=== PATIENT | female | born 1940 | race Caucasian/White ===

== ENCOUNTER 2019-06-22 09:12 | Inpatient (IN) | payer MEDICARE ==
[2019-06-22] MEDS ORDERED: SODIUM CHLORIDE 0.9% 1,000 ML IV STA ×2 (09:49→13:58)
[2019-06-22] MEDS ORDERED: PANTOPRAZOLE 40 MG/10 ML VIAL IVP STA (09:49)
--- NOTE | 2019-06-22 09:55 | ED ---
GI Bleed HPI - General Chief complaint: GI Bleed Stated complaint: GI bleed Time Seen by Provider: 06/22/19 09:26 Source: patient, family, RN notes reviewed Mode of arrival: wheelchair Limitations: no limitations - History of Present Illness Initial comments: This is a 78-year-old female with no prior history of GI issues who states she's been having intermittent episodes of black stools for past 2-3 weeks she also had emesis of bright red blood last night x3 also some blood clots per rectum this morning. She has some lightheadedness and dizziness she appears pale per family members. She is scheduled to have upper and lower endoscopy in the near future. Just complains some epigastric discomfort. Mild in severity. Also is had some peripheral edema No other modifying factors at this time MD complaint: gross hematemesis, gross hematochezia - Related Data Home Medications Medication Instructions Recorded Confirmed Aspirin 325 mg PO HS 12/13/15 06/22/19 Cetirizine HCl [Zyrtec] 10 mg PO DAILY 12/13/15 06/22/19 Levothyroxine Sodium [Synthroid] 224 mcg PO QAM 12/13/15 06/22/19 Losartan/Hydrochlorothiazide 1 tab PO DAILY 12/13/15 06/22/19 [Losartan-Hctz 100-25 mg Tab] Multivitamins, Thera [Multivitamin] 1 tab PO QAM 12/13/15 06/22/19 Atorvastatin [Lipitor] 10 mg PO HS 06/22/19 06/22/19 Citalopram Hydrobromide [CeleXA] 20 mg PO HS 06/22/19 06/22/19 Cyanocobalamin (Vitamin B-12) 5,000 mcg PO DAILY 06/22/19 06/22/19 [Vitamin B-12] L.acidoph,Paracasei, B.lactis 1 cap PO DAILY 06/22/19 06/22/19 [Probiotic] Magnesium Oxide 400 mg PO DAILY 06/22/19 06/22/19 Potassium Gluconate 99 mg PO DAILY 06/22/19 06/22/19 Allergies Allergy/AdvReac Type Severity Reaction Status Date / Time pesticide Allergy Dyspnea Verified 06/22/19 11:57 Review of Systems ROS Statement: Those systems with pertinent positive or pertinent negative responses have been documented in the HPI. ROS Other: All systems not noted in ROS Statement are negative. Past Medical History Past Medical History: Cancer, Diabetes Mellitus, Hyperlipidemia, Hypertension, Myocardial Infarction (ID), Thyroid Disorder Additional Past Medical History / Comment(s): ID: [id number]; CA: uterus Last Myocardial Infarction Date:: 1984 History of Any Multi-Drug Resistant Organisms: None Reported Past Surgical History: Cholecystectomy, Hysterectomy, Orthopedic Surgery Additional Past Surgical History / Comment(s): Sx: right knee replaced, complete hysterectomy 2013 "started having periods at 72 & went to the dr & they found a tumor (7cm) & removed that" colonoscopy Past Anesthesia/Blood Transfusion Reactions: No Reported Reaction Past Psychological History: No Psychological Hx Reported Smoking Status: Former smoker Past Alcohol Use History: None Reported Past Drug Use History: None Reported - Past Family History Mother Family Medical History: No Reported History, Dementia Additional Family Medical History / Comment(s): "94 & very healthy" Father Family Medical History: Cancer, Coronary Artery Disease (CAD), CVA/TIA Additional Family Medical History / Comment(s): "passed when 87" "first stoke wwhen 49"; CA: skin; nerve issues due to the war General Exam - General Exam Comments Initial Comments: This is a well-developed well-nourished awake alert oriented 3 female Limitations: no limitations General appearance: alert, in no apparent distress Head exam: Present: atraumatic, normocephalic, normal inspection Eye exam: Present: normal appearance, PERRL, EOMI. Absent: scleral icterus, conjunctival injection, periorbital swelling ENT exam: Present: normal exam, mucous membranes moist Neck exam: Present: normal inspection. Absent: tenderness, meningismus, lymphadenopathy Respiratory exam: Present: normal lung sounds bilaterally. Absent: respiratory distress, wheezes, rales, rhonchi, stridor Cardiovascular Exam: Present: regular rate, normal rhythm, systolic murmur. Absent: diastolic murmur, rubs, gallop, clicks GI/Abdominal exam: Present: soft, normal bowel sounds. Absent: distended, tenderness, guarding, rebound, rigid Extremities exam: Present: full ROM, normal capillary refill, pedal edema, other (Stasis dermatitis bilaterally). Absent: tenderness, joint swelling, calf tenderness Back exam: Present: normal inspection Neurological exam: Present: alert, oriented X3, CN II-XII intact Psychiatric exam: Present: normal affect, normal mood Skin exam: Present: warm, dry, intact, normal color. Absent: rash Course Vital Signs 06/22/19 06/22/19 06/22/19 09:14 11:32 12:00 Temperature 97.6 F Pulse Rate 77 74 66 Respiratory 18 18 18 Rate Blood Pressure 108/57 99/51 99/51 O2 Sat by Pulse 98 96 92 L Oximetry 06/22/19 06/22/19 13:00 14:00 Temperature Pulse Rate 65 71 Respiratory 16 17 Rate Blood Pressure 94/28 86/32 O2 Sat by Pulse 96 93 L Oximetry Medical Decision Making - Medical Decision Making Patient was reevaluated by me I did discuss case with Dr. Noonan patient will be admitted with consultation by Dr. Kaur and Cardiology no further bleeding noted while patient was here. - Lab Data Result diagrams: 06/22/19 10:10 06/22/19 10:10 Lab Results 06/22/19 06/22/19 06/22/19 Range/Units 10:10 10:10 10:10 WBC 11.1 H (3.8-10.6) k/uL RBC 2.50 L (3.80-5.40) m/uL Hgb 8.5 L (11.4-16.0) gm/dL Hct 26.0 L (34.0-46.0) % MCV 103.9 H (80.0-100.0) fL MCH 33.8 (25.0-35.0) pg MCHC 32.5 (31.0-37.0) g/dL RDW 19.2 H (11.5-15.5) % Plt Count 231 (150-450) k/uL Neutrophils % 85 % Lymphocytes % 9 % Monocytes % 3 % Eosinophils % 1 % Basophils % 0 % Neutrophils # 9.5 H (1.3-7.7) k/uL Lymphocytes # 1.0 (1.0-4.8) k/uL Monocytes # 0.3 (0-1.0) k/uL Eosinophils # 0.1 (0-0.7) k/uL Basophils # 0.0 (0-0.2) k/uL Hypochromasia Slight Anisocytosis Slight Macrocytosis Moderate APTT 27.9 (22.0-30.0) sec Sodium 138 (137-145) mmol/L Potassium 3.9 (3.5-5.1) mmol/L Chloride 106 (98-107) mmol/L Carbon Dioxide 23 (22-30) mmol/L Anion Gap 9 mmol/L BUN 57 H (7-17) mg/dL Creatinine 0.78 (0.52-1.04) mg/dL Est GFR (CKD-EPI)AfAm 86 (>60 ml/min/1.73 sqM) Est GFR (CKD-EPI)NonAf 74 (>60 ml/min/1.73 sqM) Glucose 114 H (74-99) mg/dL Calcium 9.4 (8.4-10.2) mg/dL Total Bilirubin 5.2 H (0.2-1.3) mg/dL AST 470 H (14-36) U/L ALT 99 H (9-52) U/L Alkaline Phosphatase 209 H (38-126) U/L Creatine Kinase 63 (30-135) U/L Troponin I (0.000-0.034) ng/mL Total Protein 5.7 L (6.3-8.2) g/dL Albumin 2.9 L (3.5-5.0) g/dL Urine Color Urine Appearance (Clear) Urine pH (5.0-8.0) Ur Specific [place] (1.001-1.035) Urine Protein (Negative) Urine Glucose (UA) (Negative) Urine Ketones (Negative) Urine Blood (Negative) Urine Nitrite (Negative) Urine Bilirubin (Negative) Urine Urobilinogen (<2.0) mg/dL Ur Leukocyte Esterase (Negative) Urine RBC (0-5) /hpf Urine WBC (0-5) /hpf Ur Squamous Epith Cells (0-4) /hpf Amorphous Sediment (None) /hpf Urine Bacteria (None) /hpf Hyaline Casts (0-2) /lpf Urine Mucus (None) /hpf Blood Type Blood Type Confirm Blood Type Recheck Bld Type Recheck Status Antibody Screen Spec Expiration Date 06/22/19 06/22/19 06/22/19 Range/Units 10:10 10:10 12:16 WBC (3.8-10.6) k/uL RBC (3.80-5.40) m/uL Hgb (11.4-16.0) gm/dL Hct (34.0-46.0) % MCV (80.0-100.0) fL MCH (25.0-35.0) pg MCHC (31.0-37.0) g/dL RDW (11.5-15.5) % Plt Count (150-450) k/uL Neutrophils % % Lymphocytes % % Monocytes % % Eosinophils % % Basophils % % Neutrophils # (1.3-7.7) k/uL Lymphocytes # (1.0-4.8) k/uL Monocytes # (0-1.0) k/uL Eosinophils # (0-0.7) k/uL Basophils # (0-0.2) k/uL Hypochromasia Anisocytosis Macrocytosis APTT (22.0-30.0) sec Sodium (137-145) mmol/L Potassium (3.5-5.1) mmol/L Chloride (98-107) mmol/L Carbon Dioxide (22-30) mmol/L Anion Gap mmol/L BUN (7-17) mg/dL Creatinine (0.52-1.04) mg/dL Est GFR (CKD-EPI)AfAm (>60 ml/min/1.73 sqM) Est GFR (CKD-EPI)NonAf (>60 ml/min/1.73 sqM) Glucose (74-99) mg/dL Calcium (8.4-10.2) mg/dL Total Bilirubin (0.2-1.3) mg/dL AST (14-36) U/L ALT (9-52) U/L Alkaline Phosphatase (38-126) U/L Creatine Kinase (30-135) U/L Troponin I 0.064 H* (0.000-0.034) ng/mL Total Protein (6.3-8.2) g/dL Albumin (3.5-5.0) g/dL Urine Color Urine Appearance (Clear) Urine pH (5.0-8.0) Ur Specific [place] (1.001-1.035) Urine Protein (Negative) Urine Glucose (UA) (Negative) Urine Ketones (Negative) Urine Blood (Negative) Urine Nitrite (Negative) Urine Bilirubin (Negative) Urine Urobilinogen (<2.0) mg/dL Ur Leukocyte Esterase (Negative) Urine RBC (0-5) /hpf Urine WBC (0-5) /hpf Ur Squamous Epith Cells (0-4) /hpf Amorphous Sediment (None) /hpf Urine Bacteria (None) /hpf Hyaline Casts (0-2) /lpf Urine Mucus (None) /hpf Blood Type AB Positive Blood Type Confirm AB Positive Blood Type Recheck No Previous Record Bld Type Recheck Status CABO Indicated Antibody Screen NEGATIVE Spec Expiration Date 06/25/2019 - 230906/22/19 Range/Units 12:49 WBC (3.8-10.6) k/uL RBC (3.80-5.40) m/uL Hgb (11.4-16.0) gm/dL Hct (34.0-46.0) % MCV (80.0-100.0) fL MCH (25.0-35.0) pg MCHC (31.0-37.0) g/dL RDW (11.5-15.5) % Plt Count (150-450) k/uL Neutrophils % % Lymphocytes % % Monocytes % % Eosinophils % % Basophils % % Neutrophils # (1.3-7.7) k/uL Lymphocytes # (1.0-4.8) k/uL Monocytes # (0-1.0) k/uL Eosinophils # (0-0.7) k/uL Basophils # (0-0.2) k/uL Hypochromasia Anisocytosis Macrocytosis APTT (22.0-30.0) sec Sodium (137-145) mmol/L Potassium (3.5-5.1) mmol/L Chloride (98-107) mmol/L Carbon Dioxide (22-30) mmol/L Anion Gap mmol/L BUN (7-17) mg/dL Creatinine (0.52-1.04) mg/dL Est GFR (CKD-EPI)AfAm (>60 ml/min/1.73 sqM) Est GFR (CKD-EPI)NonAf (>60 ml/min/1.73 sqM) Glucose (74-99) mg/dL Calcium (8.4-10.2) mg/dL Total Bilirubin (0.2-1.3) mg/dL AST (14-36) U/L ALT (9-52) U/L Alkaline Phosphatase (38-126) U/L Creatine Kinase (30-135) U/L Troponin I (0.000-0.034) ng/mL Total Protein (6.3-8.2) g/dL Albumin (3.5-5.0) g/dL Urine Color [place] Urine Appearance Turbid H (Clear) Urine pH 6.0 (5.0-8.0) Ur Specific [place] 1.019 (1.001-1.035) Urine Protein Trace H (Negative) Urine Glucose (UA) Negative (Negative) Urine Ketones Negative (Negative) Urine Blood Negative (Negative) Urine Nitrite Negative (Negative) Urine Bilirubin 1+ H (Negative) Urine Urobilinogen 4.0 (<2.0) mg/dL Ur Leukocyte Esterase Negative (Negative) Urine RBC 1 (0-5) /hpf Urine WBC 4 (0-5) /hpf Ur Squamous Epith Cells 11 H (0-4) /hpf Amorphous Sediment Rare H (None) /hpf Urine Bacteria Rare H (None) /hpf Hyaline Casts 1 (0-2) /lpf Urine Mucus Rare H (None) /hpf Blood Type Blood Type Confirm Blood Type Recheck Bld Type Recheck Status Antibody Screen Spec Expiration Date - EKG Data -: EKG Interpreted by Me EKG shows normal: sinus rhythm (Sinus rhythm first-degree AV block rate was 72 MN interval 250 QRS 150 QT since QTC 486/532 left exodeviation right bundle- branch block pattern) - Radiology Data Radiology results: report reviewed (Did review the imaging and report no acute findings.), image reviewed Disposition Clinical Impression: Acute GI bleeding, Anemia, Elevated troponin Disposition: ADMITTED IP TO THIS [facility] Condition: Fair Referrals: Paty Noonan DO [Primary Care Provider] - 1-2 days
[2019-06-22 10:50] LABS: Albumin 2.9 g/dL (3.5-5.0); Calcium 9.4 mg/dL (8.4-10.2); Potassium 3.9 mmol/L (3.5-5.1); Total Bilirubin 5.2 mg/dL (0.2-1.3); Total Protein 5.7 g/dL (6.3-8.2)
[2019-06-22 10:52] LABS: Anisocytosis Slight; Basophils % (A) 0 %; Eosinophils # (A) 0.1 k/uL (0-0.7); Eosinophils % (A) 1 %; HGB 8.5 gm/dL (11.4-16.0); Hypochromasia Slight; Lymphocytes % (A) 9 %; MCH 33.8 pg (25.0-35.0); MCHC 32.5 g/dL (31.0-37.0); MCV 103.9 fL (80.0-100.0); Macrocytosis Moderate; Mean Platelet Volume 6.3; Monocytes # (A) 0.3 k/uL (0-1.0); Monocytes % (A) 3 %; Neutrophils # (A) 9.5 k/uL (1.3-7.7); Neutrophils % (A) 85 %; Platelet Count 231 k/uL (150-450); RDW 19.2 % (11.5-15.5); WBC 11.1 k/uL (3.8-10.6)
[2019-06-22] MEDS ORDERED: ONDANSETRON 4 MG/2 ML VIAL IVP STA (11:24)
--- NOTE | 2019-06-22 12:01 | XR ---
EXAMINATION TYPE: XR chest 2V DATE OF EXAM: 06/22/2019 COMPARISON: NONE HISTORY: Chest pain and dyspnea. TECHNIQUE: Frontal and lateral views of the chest are obtained. FINDINGS: Mild interstitial prominence is seen throughout. There is no focal air space opacity, pleur al effusion, or pneumothorax seen. The cardiac silhouette size is within mildly enlarged. Long anter ior osteophytes are seen of the thoracic spine, moderate degenerative disc disease. IMPRESSION: Mild interstitial prominence throughout and cardiomegaly. Consider decompensated interst itial phase congestive heart failure. No sizable pleural effusions.
[2019-06-22 13:17] LABS: Amorphous Sediment,Urine Rare /hpf; Appearance,Urine Turbid (Clear); Bacteria,Urine Rare /hpf; Bilirubin,Urine 1+ (Negative); Blood,Urine Negative (Negative); Color,Urine Orange; Glucose,Urine (UA) Negative (Negative); Hyaline Casts,Urine 1 /lpf (0-2); Ketones,Urine Negative (Negative); Leukocyte Esterase,Urine Negative (Negative); Mucus,Urine Rare /hpf; Nitrite,Urine Negative (Negative); Protein,Urine Trace (Negative); RBC,Urine 1 /hpf (0-5); Specific Gravity,Urine 1.019 (1.001-1.035); Squamous Epithelial Cell,Urine 11 /hpf (0-4)
[2019-06-22] MEDS ORDERED: SODIUM CHLORIDE 0.9% 500 ML 500 ML IV STA (13:58)
[2019-06-22] MEDS ORDERED: NALOXONE 0.4 MG/ML 1 ML VIAL IV PRN (15:30)
--- NOTE | 2019-06-22 17:57 | P.PN ---
Progress Note - Text Progress Note Date: 06/22/19 History of GI bleed. Patient will undergo EGD in the a.m.
[2019-06-22] MEDS: PANTOPRAZOLE 40 MG/10 ML VIAL IV SCH (21:40)
[2019-06-22] MEDS: CITALOPRAM HYDROBROMIDE 20 MG TAB PO SCH (21:41)
[2019-06-22] MEDS: ATORVASTATIN 10 MG TAB PO SCH (21:41)
[2019-06-22] MEDS: SODIUM CHLORIDE 0.9% 1,000 ML IV SCH (21:43)
[2019-06-23] MEDS: LEVOTHYROXINE 112 MCG TAB PO SCH (05:41)
[2019-06-23 06:32] LABS: Anisocytosis Slight; Basophils % (A) 0 %; Eosinophils # (A) 0.2 k/uL (0-0.7); Eosinophils % (A) 2 %; HCT 24.7 % (34.0-46.0); HGB 7.8 gm/dL (11.4-16.0); Hypochromasia Moderate; Lymphocytes # (A) 1.1 k/uL (1.0-4.8); Lymphocytes % (A) 12 %; MCH 33.9 pg (25.0-35.0); MCHC 31.7 g/dL (31.0-37.0); Macrocytosis Marked; Mean Platelet Volume 6.5; Monocytes # (A) 0.5 k/uL (0-1.0); Monocytes % (A) 5 %; Neutrophils # (A) 7.7 k/uL (1.3-7.7); Neutrophils % (A) 79 %; Platelet Count 213 k/uL (150-450); RBC 2.31 m/uL (3.80-5.40); RDW 19.4 % (11.5-15.5); WBC 9.7 k/uL (3.8-10.6)
[2019-06-23 06:39] LABS: Calcium 8.9 mg/dL (8.4-10.2); Potassium 4.3 mmol/L (3.5-5.1)
[2019-06-23 06:50] LABS: Polychromasia Present; Target Cells Present
[2019-06-23] MEDS: PANTOPRAZOLE 40 MG/10 ML VIAL IV SCH ×2 (08:26→21:22)
[2019-06-23] MEDS: LOSARTAN-HCTZ 50-12.5 MG 1 EACH TAB PO SCH (08:26)
[2019-06-23] MEDS ORDERED: NON FORMULARY DRUG (Potassium Gluconate [Potassium Gluconate] 99 MG) PO SCH (09:00)
[2019-06-23] MEDS ORDERED: LIDOCAINE 1% INJ 10MG/ML (20 ML MDV) ONE (09:22)
[2019-06-23] MEDS ORDERED: PROPOFOL 10 MG/ML 20 ML VIAL IV ONE (09:22)
[2019-06-23] MEDS ORDERED: SODIUM CHLORIDE 0.9% 500 ML 500 ML IV ONE (09:31)
[2019-06-23] MEDS ORDERED: PEG 3350-NA SULF,BICARB,CL/KCL 4,000 ML BOTTLE PO ONE (09:31)
--- NOTE | 2019-06-23 09:31 | P.GSCN ---
History of Present Illness Consult date: 06/22/19 Reason for Consult: GI bleed History of present illness: This a 78-year-old female who's had issues with GI bleed and melanotic stools. She admitted to hospital for further workup. He was she is scheduled for outpatient endoscopy next week. Past Medical History Past Medical History: Asthma, Cancer, Diabetes Mellitus, Hyperlipidemia, Hypertension, Myocardial Infarction (ID), Thyroid Disorder Additional Past Medical History / Comment(s): ID: [id number]; CA: uterus Last Myocardial Infarction Date:: 1984 History of Any Multi-Drug Resistant Organisms: None Reported Past Surgical History: Cholecystectomy, Hysterectomy, Orthopedic Surgery Additional Past Surgical History / Comment(s): Sx: right knee replaced, complete hysterectomy 2013 "started having periods at 72 & went to the dr & they found a tumor (7cm) & removed that" colonoscopy Past Anesthesia/Blood Transfusion Reactions: No Reported Reaction Smoking Status: Former smoker - Past Family History Mother Family Medical History: No Reported History, Dementia Additional Family Medical History / Comment(s): "94 & very healthy" Father Family Medical History: Cancer, Coronary Artery Disease (CAD), CVA/TIA Additional Family Medical History / Comment(s): "passed when 87" "first stoke wwhen 49"; CA: skin; nerve issues due to the war Medications and Allergies Home Medications Medication Instructions Recorded Confirmed Type Aspirin 325 mg PO HS 12/13/15 06/22/19 History Cetirizine HCl [Zyrtec] 10 mg PO DAILY 12/13/15 06/22/19 History Levothyroxine Sodium [Synthroid] 224 mcg PO QAM 12/13/15 06/22/19 History Losartan/Hydrochlorothiazide 1 tab PO DAILY 12/13/15 06/22/19 History [Losartan-Hctz 100-25 mg Tab] Multivitamins, Thera [Multivitamin] 1 tab PO QAM 12/13/15 06/22/19 History Atorvastatin [Lipitor] 10 mg PO HS 06/22/19 06/22/19 History Citalopram Hydrobromide [CeleXA] 20 mg PO HS 06/22/19 06/22/19 History Cyanocobalamin (Vitamin B-12) 5,000 mcg PO DAILY 06/22/19 06/22/19 History [Vitamin B-12] L.acidoph,Paracasei, B.lactis 1 cap PO DAILY 06/22/19 06/22/19 History [Probiotic] Magnesium Oxide 400 mg PO DAILY 06/22/19 06/22/19 History Potassium Gluconate 99 mg PO DAILY 06/22/19 06/22/19 History Allergies Allergy/AdvReac Type Severity Reaction Status Date / Time pesticide Allergy Dyspnea Verified 06/22/19 11:57 Surgical - Exam Vital Signs Temp Pulse Resp BP Pulse Ox 97.6 F 77 18 108/57 98 06/22/19 09:14 06/22/19 09:14 06/22/19 09:14 06/22/19 09:14 06/22/19 09:14 - General well developed, well nourished, no distress, moderate distress - Eyes PERRL - ENT normal pinna - Neck no masses - Respiratory normal expansion - Cardiovascular Rhythm: regular - Abdomen Abdomen: soft, non tender Results - Labs 06/23/19 05:33 06/23/19 05:33 Abnormal Lab Results - Last 24 Hours (Table) 06/22/19 06/22/19 06/22/19 Range/Units 10:10 10:10 10:10 WBC 11.1 H (3.8-10.6) k/uL RBC 2.50 L (3.80-5.40) m/uL Hgb 8.5 L (11.4-16.0) gm/dL Hct 26.0 L (34.0-46.0) % MCV 103.9 H (80.0-100.0) fL RDW 19.2 H (11.5-15.5) % Neutrophils # 9.5 H (1.3-7.7) k/uL Macrocytosis BUN 57 H (7-17) mg/dL Creatinine (0.52-1.04) mg/dL Glucose 114 H (74-99) mg/dL Total Bilirubin 5.2 H (0.2-1.3) mg/dL AST 470 H (14-36) U/L ALT 99 H (9-52) U/L Alkaline Phosphatase 209 H (38-126) U/L Troponin I 0.064 H* (0.000-0.034) ng/mL Total Protein 5.7 L (6.3-8.2) g/dL Albumin 2.9 L (3.5-5.0) g/dL Urine Appearance (Clear) Urine Protein (Negative) Urine Bilirubin (Negative) Ur Squamous Epith Cells (0-4) /hpf Amorphous Sediment (None) /hpf Urine Bacteria (None) /hpf Urine Mucus (None) /hpf 06/22/19 06/23/19 06/23/19 Range/Units 12:49 05:33 05:33 WBC (3.8-10.6) k/uL RBC 2.31 L (3.80-5.40) m/uL Hgb 7.8 L (11.4-16.0) gm/dL Hct 24.7 L (34.0-46.0) % MCV 107.0 H (80.0-100.0) fL RDW 19.4 H (11.5-15.5) % Neutrophils # (1.3-7.7) k/uL Macrocytosis Marked A BUN 65 H (7-17) mg/dL Creatinine 1.24 H (0.52-1.04) mg/dL Glucose (74-99) mg/dL Total Bilirubin (0.2-1.3) mg/dL AST (14-36) U/L ALT (9-52) U/L Alkaline Phosphatase (38-126) U/L Troponin I (0.000-0.034) ng/mL Total Protein (6.3-8.2) g/dL Albumin (3.5-5.0) g/dL Urine Appearance Turbid H (Clear) Urine Protein Trace H (Negative) Urine Bilirubin 1+ H (Negative) Ur Squamous Epith Cells 11 H (0-4) /hpf Amorphous Sediment Rare H (None) /hpf Urine Bacteria Rare H (None) /hpf Urine Mucus Rare H (None) /hpf Diabetes panel 06/22/19 06/23/19 Range/Units 10:10 05:33 Sodium 138 137 (137-145) mmol/L Potassium 3.9 4.3 (3.5-5.1) mmol/L Chloride 106 104 (98-107) mmol/L Carbon Dioxide 23 26 (22-30) mmol/L BUN 57 H 65 H (7-17) mg/dL Creatinine 0.78 1.24 H (0.52-1.04) mg/dL Glucose 114 H 86 (74-99) mg/dL Calcium 9.4 8.9 (8.4-10.2) mg/dL AST 470 H (14-36) U/L ALT 99 H (9-52) U/L Alkaline Phosphatase 209 H (38-126) U/L Total Protein 5.7 L (6.3-8.2) g/dL Albumin 2.9 L (3.5-5.0) g/dL Calcium panel 06/22/19 06/23/19 Range/Units 10:10 05:33 Calcium 9.4 8.9 (8.4-10.2) mg/dL Albumin 2.9 L (3.5-5.0) g/dL Pituitary panel 06/22/19 06/23/19 Range/Units 10:10 05:33 Sodium 138 137 (137-145) mmol/L Potassium 3.9 4.3 (3.5-5.1) mmol/L Chloride 106 104 (98-107) mmol/L Carbon Dioxide 23 26 (22-30) mmol/L BUN 57 H 65 H (7-17) mg/dL Creatinine 0.78 1.24 H (0.52-1.04) mg/dL Glucose 114 H 86 (74-99) mg/dL Calcium 9.4 8.9 (8.4-10.2) mg/dL Adrenal panel 06/22/19 06/23/19 Range/Units 10:10 05:33 Sodium 138 137 (137-145) mmol/L Potassium 3.9 4.3 (3.5-5.1) mmol/L Chloride 106 104 (98-107) mmol/L Carbon Dioxide 23 26 (22-30) mmol/L BUN 57 H 65 H (7-17) mg/dL Creatinine 0.78 1.24 H (0.52-1.04) mg/dL Glucose 114 H 86 (74-99) mg/dL Calcium 9.4 8.9 (8.4-10.2) mg/dL Total Bilirubin 5.2 H (0.2-1.3) mg/dL AST 470 H (14-36) U/L ALT 99 H (9-52) U/L Alkaline Phosphatase 209 H (38-126) U/L Total Protein 5.7 L (6.3-8.2) g/dL Albumin 2.9 L (3.5-5.0) g/dL Assessment and Plan Assessment: GI bleed. We'll perform EGd and colonoscopy.
--- NOTE | 2019-06-23 09:34 | P.OP ---
Date of Procedure: 06/23/19 Preoperative Diagnosis: GI bleed Postoperative Diagnosis: Mild antral gastritis Mild esophagitis No evidence of upper GI bleed Procedure(s) Performed: EGD Anesthesia: MAC Surgeon: Rich Kaur Pathology: other (Antral, esophagus) Condition: stable Disposition: PACU Description of Procedure: The patient's placed on the endoscopy table in the lateral position. She received IV sedation. The gastroscope placed oropharynx passed in the esophagus into the stomach. Scope was then placed through the pylorus. The first and second portion of the duodenum appeared normal. Scope was then brought back the antrum this. Minimally inflamed. A biopsies performed. The scope was unretroflexed and the remainder stomach appeared normal. There is no evidence of any upper GI bleed. The GE junction was at 40 cm. The distal esophagus was minimal inflamed a biopsies performed. The proximal esophagus appeared normal. Scope was withdrawn for patient. There is no significant upper GI bleed. Patient will be scheduled for colonoscopy tomorrow.
--- NOTE | 2019-06-23 11:35 | CONS ---
CONSULTATION CHIEF COMPLAINT: Elevated troponin. Racheal is a 78-year-old lady with history of hypertension and dyslipidemia who presented to primary care physician with symptoms of tessa blood per rectum. She was scheduled for an outpatient EGD and colonoscopy and subsequently had hematemesis. Due to this persistent hematemesis and lower GI bleed symptoms, she came to the ER and from there she got admitted. She underwent a troponin that was elevated at 0.06 for which we were consulted. EKG reveals sinus rhythm with right bundle branch block and left axis deviation. Hemoglobin is low at 7.8, platelet count is 213. Potassium is 4.3, creatinine is 1.2, BUN is elevated at 65. Troponin is 0.064. AST, ALT are elevated. The patient's elevated troponin is probably related to the GI bleed and mild renal insufficiency. The patient does not have any symptoms of chest pain or difficulty in breathing. PAST MEDICAL HISTORY: Past medical history is negative for coronary artery disease or congestive heart failure. Is significant for hypertension, hypothyroidism and dyslipidemia. MEDICATIONS: Current medications include losartan, hydrochlorothiazide Synthroid, Celexa, Zyrtec, Lipitor and aspirin. ALLERGIES: The patient is allergic to PESTICIDE. FAMILY HISTORY: Family history is negative for premature coronary artery disease. SOCIAL HISTORY: Negative for smoking, EtOH abuse, or drug abuse. REVIEW OF SYSTEMS: HEENT is unremarkable. CARDIAC: As described above. RESPIRATORY: As described above. GI: Significant for GI bleed. GENITOURINARY: Negative. ALLERGY/IMMUNOLOGY: Negative. SKIN: Negative. MUSCULOSKELETAL: Negative. ENDOCRINE: Negative. DERM: Negative. CONSTITUTIONAL: Negative. ONCOLOGICAL: Negative. Rest of the system review is not relevant. PHYSICAL EXAMINATION: On exam, patient is comfortable at rest. Vital signs are stable. There is no jugular venous distention. Carotid upstroke is normal. There is no bruit. Chest exam reveals good air entry bilaterally. Heart exam reveals first and second heart sounds, a grade 3 x 6 systolic murmur at the apex. Abdomen is soft. Examination of the extremities reveals bilateral 1 to 2+ pitting edema. Peripheral pulses are felt. ASSESSMENT: 1. Troponin elevation is not related to acute myocardial infarction, could be due to mild renal insufficiency or anemia. 2. Gastrointestinal bleed. Workup in progress. 3. Acute onset diastolic heart failure. 4. Mitral regurgitation. PLAN: I am going to obtain a 2D echo on him. Continue current medications. I am not going to put her on IV Lasix at this time for her leg edema as she already has elevated BUN and creatinine related to the GI bleed. SABRINA / JOEY: [id number] /
--- NOTE | 2019-06-23 13:14 | ECHOF ---
Referral Reason:elevated troponin, edema MEASUREMENTS -------- HEIGHT: 160.0 cm WEIGHT: 124.3 kg BP: 105/57 RVIDd: 4.7 cm (< 3.3) IVSd: 1.2 cm (0.6 - 1.1) LVIDd: 4.2 cm (3.9 - 5.3) LVPWd: 1.3 cm (0.6 - 1.1) IVSs: 1.8 cm LVIDs: 2.4 cm LVPWs: 1.8 cm LAESV Index (A-L): 49.23 ml/m Ao Diam: 2.7 cm (2.0 - 3.7) AV Cusp: 1.7 cm (1.5 - 2.6) MV EXCURSION: 14.378 mm (> 18.000) MV EF SLOPE: 51 mm/s (70 - 150) EPSS: 0.4 cm MV E Juan Ramon: 0.73 m/s MV DecT: 236 ms MV A Juan Ramon: 0.88 m/s MV E/A Ratio: 0.83 RAP: 5.00 mmHg RVSP: 44.52 mmHg FINDINGS -------- Sinus rhythm. This was a technically difficult study with suboptimal apical views. The left ventricular size is normal. There is moderate concentric left ventricular hypertrophy. O verall left ventricular systolic function is normal with, an EF between 55 - 60 %. The diastolic fi lling pattern is normal for the age of the patient 11.39. The right ventricle is moderate to severely enlarged. LA is severely dilated >40 ml/m2 The right atrium is mildly enlarged. 5.0mg of Lumason was utilized for enhancement of images Interatrial and interventricular septum intact. The aortic valve was not well visualized. There is mild aortic valve sclerosis. There is no evide nce of aortic regurgitation. There is no evidence of aortic stenosis. Mild mitral annular calcification present. There is trace mitral regurgitation. Mild tricuspid regurgitation present. There is mild to moderate pulmonary hypertension. The right ventricular systolic pressure, as measured by Doppler, is 44.52mmHg. There is no pulmonic regurgitation present. The aortic root size is normal. IVC Not well visulized. There is no pericardial effusion. CONCLUSIONS -------- 1. Sinus rhythm. 2. This was a technically difficult study with suboptimal apical views. 3. The left ventricular size is normal. 4. There is moderate concentric left ventricular hypertrophy. 5. Overall left ventricular systolic function is normal with, an EF between 55 - 60 %. 6. The diastolic filling pattern is normal for the age of the patient 11.39 7. The right ventricle is moderate to severely enlarged. 8. LA is severely dilated >40 ml/m2 9. The right atrium is mildly enlarged. 10. 5.0mg of Lumason was utilized for enhancement of images 11. Interatrial and interventricular septum intact. 12. The aortic valve was not well visualized. 13. There is mild aortic valve sclerosis. 14. There is no evidence of aortic regurgitation. 15. There is no evidence of aortic stenosis. 16. Mild mitral annular calcification present. 17. There is trace mitral regurgitation. 18. Mild tricuspid regurgitation present. 19. There is mild to moderate pulmonary hypertension. 20. The right ventricular systolic pressure, as measured by Doppler, is 44.52mmHg. 21. There is no pulmonic regurgitation present. 22. The aortic root size is normal. 23. IVC Not well visulized. 24. There is no pericardial effusion. VACCINE MANAGER: Giovana Kidd RDCS
[2019-06-23] MEDS: SODIUM CHLORIDE 0.9% 1,000 ML IV SCH (15:28)
[2019-06-23] MEDS: CITALOPRAM HYDROBROMIDE 20 MG TAB PO SCH (21:22)
[2019-06-23] MEDS: ATORVASTATIN 10 MG TAB PO SCH (21:22)
--- NOTE | 2019-06-23 21:34 | P.HPIM ---
History of Present Illness H&P Date: 06/23/19 Chief Complaint: rectal bleed Racheal Quintero is a 78 yo F with PMH of CAD, ID, asthma, HTN, HLD who prsents to the hospital complaining of 3 week history of melena and hematochezia. She states she has been passing dark tarry stools regularly and over the past few weeks is now noticing bright blood and blood clots in her stool. She denies dizziness, lightheadedness, or abdominal pain. She has been noticing increased dyspnea with exertion. She brought this up with her PCP a few days ago and was set up for an outpatient scope but after passing large bloody BM decided to come to the ED. She denies regular caffeine, alcohol, or NSAID use. States last colonoscopy 4-5 years ago and was normal. In the ED her Hgb was 8.5 with elevated LFTs and trop 0.065. Review of Systems All systems: negative Constitutional: Reports weakness, Denies chills, Denies fever Eyes: denies blurred vision, denies pain Ears, nose, mouth and throat: Denies headache, Denies sore throat Cardiovascular: Reports dyspnea on exertion, Denies chest pain, Denies shortness of breath Respiratory: Denies cough Gastrointestinal: Reports hematochezia, Reports melena, Denies abdominal pain, Denies constipation, Denies diarrhea, Denies nausea, Denies vomiting Genitourinary: Denies dysuria, Denies hematuria Musculoskeletal: Denies myalgias Integumentary: Denies pruritus, Denies rash Neurological: Denies numbness, Denies weakness Psychiatric: Denies anxiety, Denies depression Endocrine: Denies fatigue, Denies weight change Past Medical History Past Medical History: Asthma, Cancer, Diabetes Mellitus, Hyperlipidemia, Hype rtension, Myocardial Infarction (ID), Thyroid Disorder Additional Past Medical History / Comment(s): ID: [id number]; CA: uterus Last Myocardial Infarction Date:: 1984 History of Any Multi-Drug Resistant Organisms: None Reported Past Surgical History: Cholecystectomy, Hysterectomy, Orthopedic Surgery Additional Past Surgical History / Comment(s): Sx: right knee replaced, complete hysterectomy 2013 "started having periods at 72 & went to the dr & they found a tumor (7cm) & removed that" colonoscopy Past Anesthesia/Blood Transfusion Reactions: No Reported Reaction Smoking Status: Former smoker - Past Family History Mother Family Medical History: No Reported History, Dementia Additional Family Medical History / Comment(s): "94 & very healthy" Father Family Medical History: Cancer, Coronary Artery Disease (CAD), CVA/TIA Additional Family Medical History / Comment(s): "passed when 87" "first stoke wwhen 49"; CA: skin; nerve issues due to the war Medications and Allergies Home Medications Medication Instructions Recorded Confirmed Type Aspirin 325 mg PO HS 12/13/15 06/22/19 History Cetirizine HCl [Zyrtec] 10 mg PO DAILY 12/13/15 06/22/19 History Levothyroxine Sodium [Synthroid] 224 mcg PO QAM 12/13/15 06/22/19 History Losartan/Hydrochlorothiazide 1 tab PO DAILY 12/13/15 06/22/19 History [Losartan-Hctz 100-25 mg Tab] Multivitamins, Thera [Multivitamin] 1 tab PO QAM 12/13/15 06/22/19 History Atorvastatin [Lipitor] 10 mg PO HS 06/22/19 06/22/19 History Citalopram Hydrobromide [CeleXA] 20 mg PO HS 06/22/19 06/22/19 History Cyanocobalamin (Vitamin B-12) 5,000 mcg PO DAILY 06/22/19 06/22/19 History [Vitamin B-12] L.acidoph,Paracasei, B.lactis 1 cap PO DAILY 06/22/19 06/22/19 History [Probiotic] Magnesium Oxide 400 mg PO DAILY 06/22/19 06/22/19 History Potassium Gluconate 99 mg PO DAILY 06/22/19 06/22/19 History Allergies Allergy/AdvReac Type Severity Reaction Status Date / Time pesticide Allergy Dyspnea Verified 06/22/19 11:57 Physical Exam Vitals: Vital Signs Temp Pulse Resp BP Pulse Ox 06/23/19 16:00 98.3 F 63 18 110/55 98 06/23/19 12:00 98.1 F 67 18 99/63 97 06/23/19 08:00 97.9 F 63 18 116/63 96 06/23/19 06:29 97.8 F 69 18 105/57 97 06/23/19 04:00 97.8 F 69 18 105/57 97 06/23/19 00:00 97.7 F 65 18 99/48 88 L Intake and Output 06/23/19 06/23/19 06/23/19 06:59 14:59 22:59 Intake Total 200 400 Balance 200 400 Intake: IV 200 Oral 400 Other: Voiding Method Toilet Toilet # Voids 2 4 # Bowel Movements 1 Weight 124.3 kg General: well nourished, well developed, NAD. Vitals reviewed Eyes: PERRL, EOMI, conjunctiva normal HENT: normocephalic, mucus membranes moist Neck: supple, no JVD Lungs: normal respiratory effort, no wheezes or rales CV: Regular rate and rhythm, systolic murmur. Peripheral pulses 2+ Abdomen: soft, nondistended, no organomegaly Lymph: no cervical or axillary LAD Skin: warm and dry. Neuro: A&Ox3, normal mood and affect Results CBC & Chem 7: 06/23/19 05:33 06/23/19 05:33 Labs: Abnormal Lab Results - Last 24 Hours (Table) 06/23/19 06/23/19 Range/Units 05:33 05:33 RBC 2.31 L (3.80-5.40) m/uL Hgb 7.8 L (11.4-16.0) gm/dL Hct 24.7 L (34.0-46.0) % MCV 107.0 H (80.0-100.0) fL RDW 19.4 H (11.5-15.5) % Macrocytosis Marked A BUN 65 H (7-17) mg/dL Creatinine 1.24 H (0.52-1.04) mg/dL Thrombosis Risk Factor Assmnt - Choose All That Apply Each Risk Factor Represents 3 Points: Age 75 years or older Thrombosis Risk Factor Assessment Total Risk Factor Score: 3 Thrombosis Risk Factor Assessment Level: Moderate Risk Assessment and Plan (1) Demand ischemia Current Visit: Yes Status: Acute Code(s): I24.8 - OTHER FORMS OF ACUTE ISCHEMIC HEART DISEASE SNOMED Code(s): 695909117 (2) Elevated LFTs Current Visit: Yes Status: Acute Code(s): R94.5 - ABNORMAL RESULTS OF LIVER FUNCTION STUDIES SNOMED Code(s): 615748253 (3) Coronary artery disease involving [place] coronary artery Current Visit: Yes Status: Acute Code(s): I25.10 - ATHSCL HEART DISEASE OF [place] CORONARY ARTERY W/O ANG PCTRS SNOMED Code(s): 6778998928973 (4) History of ID (myocardial infarction) Current Visit: Yes Status: Acute Code(s): I25.2 - OLD MYOCARDIAL INFARCTION SNOMED Code(s): 830991007 (5) Hypertension Current Visit: Yes Status: Acute Code(s): I10 - ESSENTIAL (PRIMARY) HYPERTENSION SNOMED Code(s): 19807027 (6) Hyperlipidemia Current Visit: Yes Status: Acute Code(s): E78.5 - HYPERLIPIDEMIA, UNSPE CIFIED SNOMED Code(s): 25436796 (7) Acute GI bleeding Current Visit: Yes Status: Acute Code(s): K92.2 - GASTROINTESTINAL HEMORRHAGE, UNSPECIFIED SNOMED Code(s): 34191817 (8) Anemia Current Visit: Yes Status: Acute Code(s): D64.9 - ANEMIA, UNSPECIFIED SNOMED Code(s): 832009782 (9) Elevated troponin Current Visit: Yes Status: Acute Code(s): R79.89 - OTHER SPECIFIED ABNORMAL FINDINGS OF BLOOD CHEMISTRY SNOMED Code(s): 919189557 Plan: 1. Acute GI bleed. Surgery consulted, plan for upper and lower scope. Protonix bid. Monitor hgb 2. Elevated LFTs. Await scope results. Consider further imaging. Check ferritin and hepatitis panel 3. Elevated troponin. Suspect demand ischemia. Cardiology consult 4. CAD. HTN. HLD. continue home statin, cozaar, hctz
[2019-06-24] MEDS: LEVOTHYROXINE 112 MCG TAB PO SCH (06:16)
[2019-06-24] MEDS: PANTOPRAZOLE 40 MG/10 ML VIAL IV SCH ×2 (08:28→21:27)
[2019-06-24 08:56] LABS: Anisocytosis Slight; Basophils % (A) 0 %; Eosinophils # (A) 0.1 k/uL (0-0.7); Eosinophils % (A) 2 %; HCT 23.8 % (34.0-46.0); HGB 7.7 gm/dL (11.4-16.0); Hypochromasia Moderate; Lymphocytes # (A) 0.7 k/uL (1.0-4.8); Lymphocytes % (A) 9 %; MCH 34.8 pg (25.0-35.0); MCHC 32.4 g/dL (31.0-37.0); MCV 107.4 fL (80.0-100.0); Macrocytosis Marked; Mean Platelet Volume 6.5; Monocytes # (A) 0.5 k/uL (0-1.0); Monocytes % (A) 6 %; Neutrophils # (A) 6.7 k/uL (1.3-7.7); Neutrophils % (A) 82 %; Platelet Count 191 k/uL (150-450); RBC 2.22 m/uL (3.80-5.40); RDW 19.7 % (11.5-15.5); WBC 8.2 k/uL (3.8-10.6)
--- NOTE | 2019-06-24 10:21 | PN ---
PROGRESS NOTE Racheal is a 78-year-old lady with history of hypertension, hypothyroidism, dyslipidemia, who was admitted to hospital with severe symptomatic anemia. Had mild troponin elevation, probably related to the anemia and mild renal insufficiency. She had an EGD that did not find a source for her blood loss and she is to undergo a colonoscopy today. She had an echocardiogram that showed normal LV systolic function with mild tricuspid and mild to moderate pulmonary hypertension. The right ventricle is dilated. On exam, comfortable at rest. Vital signs are stable. There is no jugular venous distention. Chest exam reveals good air entry bilaterally. Heart exam reveals first and second heart sounds. No gallop. Exam of extremities reveals 1+ edema. LABS: Show a hemoglobin of 7.7, potassium is 4.3 creatinine is 1.2. ASSESSMENT: 1. Anemia, secondary to blood loss. 2. Troponin elevation. secondary to supply demand mismatch. 3. Mild mitral regurgitation. PLAN: I will continue her on her current medications. Will await the results of colonoscopy. MMODL / IJN: [id number] /
[2019-06-24 10:23] LABS: Polychromasia Present
[2019-06-24 10:24] LABS: Poikilocytosis (M) Present
[2019-06-24] MEDS: LOSARTAN-HCTZ 50-12.5 MG 1 EACH TAB PO SCH (10:51)
[2019-06-24 11:55] LABS: Hepatitis A Antibody IgM Non-Reactive (Non-Reactive); Hepatitis B Core IgM Non-Reactive (Non-Reactive); Hepatitis B Surface Antigen Non-Reactive (Non-Reactive); Hepatitis C IgG Antibody Non-Reactive (Non-Reactive)
[2019-06-24] MEDS ORDERED: LIDOCAINE 1% INJ 10MG/ML (20 ML MDV) ONE (13:14)
[2019-06-24] MEDS ORDERED: PROPOFOL 10 MG/ML 20 ML VIAL IV ONE (13:14)
[2019-06-24] MEDS ORDERED: IV FLUID CONTINUATION 1,000 ML IV ONE ×2 (13:16)
--- NOTE | 2019-06-24 16:09 | P.PN ---
Progress Note - Text Progress Note Date: 06/24/19 I discussed the endoscopic findings with the patient's family. Her EGD shows no evidence of any active GI bleed. Her colonoscopy performed today shows evidence of diverticulosis and a small polyp without any evidence of bleeding. The patient did not pass any blood with her bowel prep. Patient remains anemic. Her hemoglobin has been stable. There is been no evidence of any active GI bleed. I discussed the patient's family that if she has any further GI bleed she may need a capsule endoscopy or a tagged RBC scan. The patient will be observed over the weekend. Dr. Rodriguez will be covering me.
[2019-06-24] MEDS: ATORVASTATIN 10 MG TAB PO SCH (21:38)
--- NOTE | 2019-06-24 22:36 | P.PN ---
Subjective Progress Note Date: 06/24/19 Racheal Quintero is a 78 yo F with PMH of CAD, NM, asthma, HTN, HLD who prsents to the hospital complaining of 3 week history of melena and hematochezia. She states she has been passing dark tarry stools regularly and over the past few weeks is now noticing bright blood and blood clots in her stool. She denies dizziness, lightheadedness, or abdominal pain. She has been noticing increased dyspnea with exertion. She brought this up with her PCP a few days ago and was set up for an outpatient scope but after passing large bloody BM decided to come to the ED. She denies regular caffeine, alcohol, or NSAID use. States last colonoscopy 4-5 years ago and was normal. In the ED her Hgb was 8.5 with elevated LFTs and trop 0.065. 06/24. She is s/p EGD yesterday, colonoscopy scheduled today. Her EGD showed some esophagitis. She denies any further rectal bleeding, chest pain, or shortness of breath. Objective - Vital Signs Vital signs: Vital Signs Temp 97.6 F 06/24/19 15:14 Pulse 67 06/24/19 21:20 Resp 18 06/24/19 15:14 BP 78/37 06/24/19 21:20 Pulse Ox 91 L 06/24/19 15:14 Intake & Output 06/24/19 06/24/19 06/25/19 06:59 18:59 06:59 Intake Total 400 100 Balance 400 100 Weight 125.8 kg Intake: IV 100 Oral 400 0 Other: Voiding Method Toilet Toilet # Voids 2 1 # Bowel Movements 4 1 - Exam Gen: well developed, well nourished, NAD HEENT: mucus membranes moist CV: RRR, no murmur Lungs: clear throughout Abd: soft, mild epigastric tenderness Ext: no edema - Labs CBC & Chem 7: 06/24/19 06:49 06/23/19 05:33 Labs: Abnormal Lab Results - Last 24 Hours (Table) 06/24/19 Range/Units 06:49 RBC 2.22 L (3.80-5.40) m/uL Hgb 7.7 L (11.4-16.0) gm/dL Hct 23.8 L (34.0-46.0) % MCV 107.4 H (80.0-100.0) fL RDW 19.7 H (11.5-15.5) % Lymphocytes # 0.7 L (1.0-4.8) k/uL Macrocytosis Marked A Assessment and Plan (1) Demand ischemia Current Visit: Yes Status: Acute Code(s): I24.8 - OTHER FORMS OF ACUTE ISCHEMIC HEART DISEASE SNOMED Code(s): 164907111 (2) Elevated LFTs Current Visit: Yes Status: Acute Code(s): R94.5 - ABNORMAL RESULTS OF LIVER FUNCTION STUDIES SNOMED Code(s): 942117916 (3) Coronary artery disease involving [place] coronary artery Current Visit: Yes Status: Acute Code(s): I25.10 - ATHSCL HEART DISEASE OF [place] CORONARY ARTERY W/O ANG PCTRS SNOMED Code(s): 1481336254553 (4) History of NM (myocardial infarction) Current Visit: Yes Status: Acute Code(s): I25.2 - OLD MYOCARDIAL INFARCTION SNOMED Code(s): 050207702 (5) Hypertension Current Visit: Yes Status: Acute Code(s): I10 - ESSENTIAL (PRIMARY) HY PERTENSION SNOMED Code(s): 09334895 (6) Hyperlipidemia Current Visit: Yes Status: Acute Code(s): E78.5 - HYPERLIPIDEMIA, UNSPECIFIED SNOMED Code(s): 99542447 (7) Acute GI bleeding Current Visit: Yes Status: Acute Code(s): K92.2 - GASTROINTESTINAL HEMOR RHAGE, UNSPECIFIED SNOMED Code(s): 58513821 (8) Anemia Current Visit: Yes Status: Acute Code(s): D64.9 - ANEMIA, UNSPECIFIED SNOMED Code(s): 168311485 (9) Elevated troponin Current Visit: Yes Status: Acute Code(s): R79.89 - OTHER SPECIFIED ABNORMAL FINDINGS OF BLOOD CHEMISTRY SNOMED Code(s): 733561980 Plan: 1. Acute GI bleed. Protonix bid. Surgery following colonoscopy today. Monitor hgb 2. Elevated LFTs. Await scope results. Hepatitis panel negative, ferritin wnl. Consider further imaging. 3. Elevated troponin. Cardiology following, plan for echo 4. CAD. HTN. HLD. continue home statin, cozaar, hctz
[2019-06-24] MEDS: CITALOPRAM HYDROBROMIDE 20 MG TAB PO SCH (23:44)
[2019-06-25] MEDS ORDERED: SODIUM CHLORIDE 0.9% 1,000 ML IV ONE (00:25)
[2019-06-25] MEDS: SODIUM CHLORIDE 0.9% 1,000 ML IV SCH ×4 (00:30→23:42)
[2019-06-25] MEDS: LEVOTHYROXINE 112 MCG TAB PO SCH (06:43)
[2019-06-25 08:03] LABS: Calcium 8.1 mg/dL (8.4-10.2); Potassium 3.7 mmol/L (3.5-5.1)
[2019-06-25 08:25] LABS: Anisocytosis Slight; Basophils % (A) 0 %; Eosinophils # (A) 0.1 k/uL (0-0.7); Eosinophils % (A) 1 %; HCT 24.1 % (34.0-46.0); HGB 7.6 gm/dL (11.4-16.0); Hypochromasia Moderate; Lymphocytes # (A) 0.8 k/uL (1.0-4.8); Lymphocytes % (A) 9 %; MCH 33.8 pg (25.0-35.0); MCHC 31.5 g/dL (31.0-37.0); MCV 107.5 fL (80.0-100.0); Macrocytosis Marked; Monocytes # (A) 0.5 k/uL (0-1.0); Monocytes % (A) 6 %; Neutrophils # (A) 6.6 k/uL (1.3-7.7); Neutrophils % (A) 81 %; Platelet Count 185 k/uL (150-450); RBC 2.24 m/uL (3.80-5.40); RDW 18.8 % (11.5-15.5); WBC 8.1 k/uL (3.8-10.6)
[2019-06-25] MEDS: PANTOPRAZOLE 40 MG/10 ML VIAL IV SCH ×2 (08:42→20:07)
[2019-06-25 09:40] LABS: Target Cells Present
--- NOTE | 2019-06-25 11:11 | P.PN ---
Subjective Progress Note Date: 06/25/19 CHIEF COMPLAINT: GI Bleeding HISTORY OF PRESENT ILLNESS: The patient is a 78-year-old female status post upper and lower endoscopy for GI bleed all of which is within normal limits. No episodes of bleeding over night. Scopes upper and lower unremarkable. She reports eating sandwiches yesterday as provided by the nurse. She is very hungry. Her family is at bedside. ROS: No reports of nausea and vomiting. No bloody bowel movements. No fevers or chills. No new chest pain. No productive sputum PHYSICAL EXAM: VITAL SIGNS: Reviewed CONSTITUTIONAL: Well developed and in no acute distress. EYES: Conjuctivae without sclera icterus. Extraocular movements grossly intact. HEAD, EARS, NOSE, THROAT: Moist buccal mucosa. Head is atraumatic, normocephalic. Hears conversational speech. No nasal drainage. RESPIRATORY: Non-labored respirations and equal bilateral excursions. CARDIOVASCULAR: Palpable 2+ radial pulses ABDOMEN: Morbidly obese, soft, non-tender, non-distended MUSCULOSKELETAL: No gross deformity of the lower extremities noted. SKIN: Good skin turgor. Well perfused. NEUROLOGIC: Cranial nerves I through XII grossly intact. No focal or lateralizing signs. PSYCH: Appropriate affect. Alert and oriented to person, place and time. CLINCAL LABS: Hemoglobin stable 7.7 ASSESSMENT: 1. GI bleeding. PLAN: 1. May start heart healthy diet. Objective - Vital Signs Vital signs: Vital Signs Temp 97.7 F 06/25/19 08:00 Pulse 66 06/25/19 08:00 Resp 20 06/25/19 08:00 BP 91/45 06/25/19 08:00 Pulse Ox 97 06/25/19 08:00 Intake & Output 06/24/19 06/25/19 06/25/19 18:59 06:59 18:59 Intake Total 100 Balance 100 Weight 127.8 kg Intake: IV 100 Oral 0 Other: Voiding Method Toilet Toilet Toilet # Voids 1 1 # Bowel Movements 1 - Labs CBC & Chem 7: 06/26/19 06:25 06/26/19 06:25 Labs: Abnormal Lab Results - Last 24 Hours (Table) 06/25/19 06/25/19 Range/Units 07:31 07:31 RBC 2.24 L (3.80-5.40) m/uL Hgb 7.6 L (11.4-16.0) gm/dL Hct 24.1 L (34.0-46.0) % MCV 107.5 H (80.0-100.0) fL RDW 18.8 H (11.5-15.5) % Lymphocytes # 0.8 L (1.0-4.8) k/uL Macrocytosis Marked A BUN 63 H (7-17) mg/dL Creatinine 1.74 H (0.52-1.04) mg/dL Glucose 100 H (74-99) mg/dL Calcium 8.1 L (8.4-10.2) mg/dL Assessment and Plan (1) Morbid obesity due to excess calories Current Visit: Yes Status: Acute Code(s): E66.01 - MORBID (SEVERE) OBESITY DUE TO EXCESS CALORIES SNOMED Code(s): 946959720 (2) BMI 50.0-59.9, adult Current Visit: Yes Status: Acute Code(s): Z68.43 - BODY MASS INDEX (BMI) 50.0-59.9, ADULT SNOMED Code(s): 784779335 (3) Hypertensive heart disease Current Visit: Yes Status: Acute Code(s): I11.9 - HYPERTENSIVE HEART DISEASE WITHOUT HEART FAILURE SNOMED Code(s): 65226111 (4) Hypothyroidism Current Visit: Yes Status: Acute Code(s): E03.9 - HYPOTHYROIDISM, UNSPECIFIED SNOMED Code(s): 87217349 (5) Depressive disorder Current Visit: Yes Status: Acute Code(s): F32.9 - MAJOR DEPRESSIVE DISORDER, SINGLE EPISODE, UNSPECIFIED SNOMED Code(s): 39508462 (6) Acute GI bleeding Current Visit: Yes Status: Acute Code(s): K92.2 - GASTROINTESTINAL HEMORRHAGE, UNSPECIFIED SNOMED Code(s): 76479103 (7) Anemia Current Visit: Yes Status: Acute Code(s): D64.9 - ANEMIA, UNSPECIFIED SNOMED Code(s): 115982435 (8) Coronary artery disease involving [place] coronary artery Current Visit: Yes Status: Acute Code(s): I25.10 - ATHSCL HEART DISEASE OF [place] CORONARY ARTERY W/O ANG PCTRS SNOMED Code(s): 0285380450552 (9) History of NC (myocardial infarction) Current Visit: Yes Status: Acute Code(s): I25.2 - OLD MYOCARDIAL INFARCTION SNOMED Code(s): 258433331 (10) Hyperlipidemia Current Visit: Yes Status: Acute Code(s): E78.5 - HYPERLIPIDEMIA, UNSPECIFIED SNOMED Code(s): 39557994 (11) Acute kidney failure Current Visit: Yes Status: Acute Code(s): N17.9 - ACUTE KIDNEY FAILURE, UNSPECIFIED SNOMED Code(s): 35539700 (12) Iron deficiency anemia Current Visit: Yes Status: Acute Code(s): D50.9 - IRON DEFICIENCY ANEMIA, UNSPECIFIED SNOMED Code(s): 37431650
--- NOTE | 2019-06-25 11:33 | P.PN ---
Subjective 78 yo F with PMH of CAD, LA, asthma, HTN, HLD who prsents to the hospital complaining of 3 week history of melena and hematochezia. She states she has been passing dark tarry stools regularly and over the past few weeks is now noticing bright blood and blood clots in her stool. She denies dizziness, lightheadedness, or abdominal pain. She has been noticing increased dyspnea with exertion. She brought this up with her PCP a few days ago and was set up for an outpatient scope but after passing large bloody BM decided to come to the ED. She denies regular caffeine, alcohol, or NSAID use. States last colonoscopy 4-5 years ago and was normal. In the ED her Hgb was 8.5 with elevated LFTs and trop 0.065. 06/24. She is s/p EGD yesterday, colonoscopy scheduled today. Her EGD showed some esophagitis. She denies any further rectal bleeding, chest pain, or shortness of breath. 06/25/2019 Patient doesn't have any more GI bleed clinically. Patient will be started on diet. Patient blood pressure is low patient on hydrochlorothiazide and losartan combination pill which will be discontinued patient also has acute renal failure with creatinine going up to 1.7. Patient will continue on IV fluids and will recheck the basic metabolic profile tomorrow, kidney function expected to improve with his continuation of this medication and with improvement of blood pressure. Constitutional: Denied any fatigue denied any fever. Cardio vascular: denied any chest pain, palpitations Gastrointestinal denied any nausea vomiting Pulmonary: Denied any shortness of breath cough Neurologic denied any new focal deficits All inpatient medications were reviewed and appropriate changes in these medications as dictated in the interval history and assessment and plan. Objective - Vital Signs Vital signs: Vital Signs Temp 98 F 06/25/19 11:19 Pulse 66 06/25/19 11: Resp 16 06/25/19 11:19 BP 94/53 06/25/19 11:19 Pulse Ox 95 06/25/19 11:19 Intake & Output 06/24/19 06/25/19 06/25/19 18:59 06:59 18:59 Intake Total 100 800 Output Total 200 Balance 100 600 Weight 127.8 kg Intake: IV 100 800 Sodium Chloride 0.9% 1, 800 000 ml @ 100 mls/hr IV . Q10H [facility] Rx#:[id number] Oral 0 Output: Urine 200 Other: Voiding Method Toilet Toilet Toilet # Voids 1 1 # Bowel Movements 1 1 - Exam PHYSICAL EXAMINATION: GENERAL: The patient is alert and oriented x3, not in any acute distress. Well developed, well nourished. HEENT: Pupils are round and equally reacting to light. EOMI. No scleral icterus. No conjunctival pallor. Normocephalic, atraumatic. No pharyngeal erythema. No thyromegaly. CARDIOVASCULAR: S1 and S2 present. No rubs, or gallops. Systolic murmur and diuretic area as well as tricuspid area may be a loud P2 PULMONARY: Chest is clear to auscultation, no wheezing or crackles. ABDOMEN: Soft, nontender, nondistended, normoactive bowel sounds. No palpable organomegaly. MUSCULOSKELETAL: No joint swelling or deformity. EXTREMITIES: No cyanosis, clubbing, or pedal edema. NEUROLOGICAL: Gross neurological examination did not reveal any focal deficits. SKIN: No rashes. - Labs CBC & Chem 7: 06/25/19 07:31 06/25/19 07:31 Labs: Abnormal Lab Results - Last 24 Hours (Table) 06/25/19 06/25/19 Range/Units 07:31 07:31 RBC 2.24 L (3.80-5.40) m/uL Hgb 7.6 L (11.4-16.0) gm/dL Hct 24.1 L (34.0-46.0) % MCV 107.5 H (80.0-100.0) fL RDW 18.8 H (11.5-15.5) % Lymphocytes # 0.8 L (1.0-4.8) k/uL Macrocytosis Marked A BUN 63 H (7-17) mg/dL Creatinine 1.74 H (0.52-1.04) mg/dL Glucose 100 H (74-99) mg/dL Calcium 8.1 L (8.4-10.2) mg/dL Assessment and Plan Plan: -Acute GI bleed: Improved at this time. Continue with Protonix patient underwent the upper GI endoscopy and coloscopy which is significant for mild esophagitis. Patient appears to have upper GI bleed. Presently doesn't have any more bleed. 2-acute renal failure secondary to hypotension and the losartan along with hydrochlorothiazide and will be started on IV fluids and recheck basic metabolic profile tomorrow expected to improve -Coronary artery disease -Possible demand ischemia -Hyperlipidemia -Hypertension and presently hypotensive holding off on antidepressant medications.
--- NOTE | 2019-06-25 12:26 | P.PN ---
Subjective This is a pleasant 78-year-old female past medical history significant for hypertension, dyslipidemia and diabetes mellitus. She does not follow with a order picker in has no prior history of coronary artery disease. We are following secondary to troponin elevation in the setting of anemia and acute GI bleeding. She is seen and examined sitting up in bed with family at the bedside in no acute distress. She denies symptoms of chest discomfort, and is or palpitations. She does have mild shortness of breath with exertion. Laboratory data reviewed, WBC 8.1, hemoglobin 7.6, platelets 185, sodium 138, potassium 3.7, creatinine 1.74. Blood pressure has been running low this morning orthostatics were unremarkable resting blood pressure 94/53 with a heart rate of 66. Currently maintained on atorvastatin 10 mg daily losartan/hyd rochlorothiazide has been held secondary to hypotension. Colonoscopy and EGD were unremarkable. GENERAL: Well-appearing, well-nourished and in no acute distress. NECK: Supple without JVD or thyromegaly. LUNGS: Breath sounds clear to auscultation bilaterally. Respiration equal and unlabored. No wheezes, rales or rhonchi. HEART: Regular rate and rhythm with systolic ejection murmur at the left sternal border no, rubs or gallops. S1 and S2 heard. EXTREMITIES: Normal range of motion, 1+ bilateral lower extremity pitting edema. No clubbing or cyanosis. Peripheral pulses intact. ASSESSMENT Acute GI bleeding Anemia secondary GI bleeding Mild troponin elevation secondary to supply demand mismatch Hypotension with a history of hypertension, antihypertensives on hold. Secondary to volume loss Dyslipidemia Diabetes mellitus PLAN Continue current medical regimen. Agree with holding antihypertensives, may require blood transfusion. Follow-up in the office with Dr. Goodwin. We will follow as needed, please feel free to call with questions or concerns. Nurse Practitioner note has been reviewed, I agree with a documented findings and plan of care. Patient was seen and examined. Objective - Vital Signs Vital signs: Vital Signs Temp 98 F 06/25/19 11: Pulse 66 06/25/19 11:19 Resp 16 06/25/19 11:19 BP 94/53 06/25/19 11:19 Pulse Ox 95 06/25/19 11:19 Intake & Output 06/24/19 06/25/19 06/25/19 18:59 06:59 18:59 Intake Total 100 800 Output Total 200 Balance 100 600 Weight 127.8 kg Intake: IV 100 800 Sodium Chloride 0.9% 1, 800 000 ml @ 100 mls/hr IV . Q10H [facility] Rx#:[id number] Oral 0 Output: Urine 200 Other: Voiding Method Toilet Toilet Toilet # Voids 1 1 # Bowel Movements 1 1 - Labs CBC & Chem 7: 06/25/19 07:31 06/25/19 07:31 Labs: Abnormal Lab Results - Last 24 Hours (Table) 06/25/19 06/25/19 Range/Units 07:31 07:31 RBC 2.24 L (3.80-5.40) m/uL Hgb 7.6 L (11.4-16.0) gm/dL Hct 24.1 L (34.0-46.0) % MCV 107.5 H (80.0-100.0) fL RDW 18.8 H (11.5-15.5) % Lymphocytes # 0.8 L (1.0-4.8) k/uL Macrocytosis Marked A BUN 63 H (7-17) mg/dL Creatinine 1.74 H (0.52-1.04) mg/dL Glucose 100 H (74-99) mg/dL Calcium 8.1 L (8.4-10.2) mg/dL
[2019-06-25] MEDS ORDERED: ACETAMINOPHEN TAB 325 MG TAB PO PRN (19:09)
[2019-06-25 19:34] LABS: Anisocytosis Slight; Basophils % (A) 0 %; Eosinophils # (A) 0.2 k/uL (0-0.7); Eosinophils % (A) 2 %; HCT 24.4 % (34.0-46.0); HGB 7.7 gm/dL (11.4-16.0); Hypochromasia Moderate; Lymphocytes # (A) 0.8 k/uL (1.0-4.8); Lymphocytes % (A) 9 %; MCH 34.3 pg (25.0-35.0); MCHC 31.8 g/dL (31.0-37.0); MCV 107.9 fL (80.0-100.0); Macrocytosis Marked; Monocytes # (A) 0.5 k/uL (0-1.0); Monocytes % (A) 6 %; Neutrophils # (A) 7.4 k/uL (1.3-7.7); Neutrophils % (A) 82 %; Platelet Count 188 k/uL (150-450); RBC 2.26 m/uL (3.80-5.40)
[2019-06-25 19:54] LABS: Calcium 7.9 mg/dL (8.4-10.2); Magnesium 2.4 mg/dL (1.6-2.3); Phosphorus 4.6 mg/dL (2.5-4.5); Potassium 3.9 mmol/L (3.5-5.1)
[2019-06-25 20:05] LABS: Polychromasia Present
[2019-06-25 20:06] LABS: Poikilocytosis (M) Present
[2019-06-25] MEDS: CITALOPRAM HYDROBROMIDE 20 MG TAB PO SCH (20:06)
[2019-06-25] MEDS: ATORVASTATIN 10 MG TAB PO SCH (20:07)
[2019-06-26] MEDS ORDERED: SODIUM CHLORIDE 0.9% 1,000 ML IV ONE (00:03)
[2019-06-26 01:35] LABS: Anisocytosis Slight; Basophils % (A) 0 %; Eosinophils # (A) 0.2 k/uL (0-0.7); Eosinophils % (A) 2 %; HCT 25.6 % (34.0-46.0); Hypochromasia Moderate; Lymphocytes # (A) 0.9 k/uL (1.0-4.8); Lymphocytes % (A) 9 %; MCH 33.5 pg (25.0-35.0); MCHC 31.4 g/dL (31.0-37.0); MCV 106.8 fL (80.0-100.0); Macrocytosis Marked; Mean Platelet Volume 7.4; Monocytes # (A) 0.5 k/uL (0-1.0); Monocytes % (A) 5 %; Neutrophils # (A) 8.3 k/uL (1.3-7.7); Neutrophils % (A) 82 %; Platelet Count 197 k/uL (150-450); RDW 18.4 % (11.5-15.5); WBC 10.1 k/uL (3.8-10.6)
[2019-06-26 02:44] LABS: Glucose,Whole Blood 120 mg/dL (75-99)
[2019-06-26 03:13] LABS: Anisocytosis Slight; Basophils % (A) 0 %; Eosinophils # (A) 0.1 k/uL (0-0.7); Eosinophils % (A) 1 %; HCT 24.3 % (34.0-46.0); HGB 7.7 gm/dL (11.4-16.0); Hypochromasia Moderate; Lymphocytes # (A) 0.6 k/uL (1.0-4.8); Lymphocytes % (A) 7 %; MCH 33.7 pg (25.0-35.0); MCHC 31.5 g/dL (31.0-37.0); Macrocytosis Marked; Mean Platelet Volume 6.5; Monocytes # (A) 0.5 k/uL (0-1.0); Monocytes % (A) 6 %; Neutrophils % (A) 83 %; Platelet Count 181 k/uL (150-450); RBC 2.28 m/uL (3.80-5.40); RDW 18.6 % (11.5-15.5); WBC 8.5 k/uL (3.8-10.6)
[2019-06-26 03:21] LABS: Albumin 2.6 g/dL (3.5-5.0); Calcium 7.7 mg/dL (8.4-10.2); Potassium 3.7 mmol/L (3.5-5.1); Total Bilirubin 4.8 mg/dL (0.2-1.3); Total Protein 5.3 g/dL (6.3-8.2)
[2019-06-26 04:10] LABS: Glucose,Whole Blood 113 mg/dL (75-99)
[2019-06-26] MEDS: NOREPINEPHRINE 4 MG in SODIUM CHLORIDE 0.9% 250 ML IV SCH ×3 (06:06→21:23)
[2019-06-26] MEDS: SODIUM CHLORIDE 0.9% 1,000 ML IV SCH ×2 (06:06→17:28)
[2019-06-26 06:35] LABS: Anisocytosis Slight; Basophils % (A) 0 %; Eosinophils # (A) 0.2 k/uL (0-0.7); Eosinophils % (A) 2 %; HCT 25.1 % (34.0-46.0); HGB 7.9 gm/dL (11.4-16.0); Hypochromasia Moderate; Lymphocytes # (A) 0.9 k/uL (1.0-4.8); Lymphocytes % (A) 9 %; MCH 33.7 pg (25.0-35.0); MCHC 31.5 g/dL (31.0-37.0); MCV 107.1 fL (80.0-100.0); Macrocytosis Marked; Mean Platelet Volume 7.5; Monocytes # (A) 0.6 k/uL (0-1.0); Monocytes % (A) 6 %; Neutrophils # (A) 7.9 k/uL (1.3-7.7); Neutrophils % (A) 82 %; Platelet Count 219 k/uL (150-450); RBC 2.34 m/uL (3.80-5.40); RDW 18.6 % (11.5-15.5); WBC 9.6 k/uL (3.8-10.6)
[2019-06-26 06:57] LABS: Calcium 7.6 mg/dL (8.4-10.2); Potassium 3.7 mmol/L (3.5-5.1)
[2019-06-26] MEDS ORDERED: Potassium Replacement Protocol 1 EACH MISC MISCELLANE PRN (07:07)
[2019-06-26] MEDS: LEVOTHYROXINE 112 MCG TAB PO SCH (07:10)
[2019-06-26] MEDS ORDERED: POTASSIUM CHLORIDE ER 20 MEQ TAB.ER PO ONE (08:00)
[2019-06-26] MEDS: PANTOPRAZOLE 40 MG/10 ML VIAL IV SCH ×2 (08:14→20:31)
--- NOTE | 2019-06-26 11:38 | P.CNPUL ---
History of Present Illness Consult date: 06/26/19 Chief complaint: hypotension History of present illness: This 78-year-old. Patient got transferred to the intensive care yesterday because of hypotension. This patient was hospitalized because of GI bleeding. She was passing tarry stool. She had also noted some bright red blood with passing of clots in her stool. She denied having any dizziness or lightheadedness or abdominal pain. She also noticed some increased shortness of breath. She went to her primary care physician but after passing a large BM that was bloody she came into the emergency department on 06/23/2019. No history of alcohol use. No intake of any nonsteroidal anti-inflammatory medication. She had previous colonoscopy was done around 5 years which was normal. Hemoglobin at time of admission was 8.5. She has also abnormal LFTs with elevated bilirubin and a troponin was 0.065. The patient underwent EGD and colonoscopy during this current admission which did not reveal any significant abnormalities. It showed diverticulosis and esophagitis. The patient subsequently did not require any blood transfusion. She was started on diet. Her HUANG inhibitor and hydrochlorothiazide were discontinued. Nevertheless, she went to an acute kidney injury in the creatinine came up to 1.7. She was started on IV fluids and yesterday after being hypotensive she got chest to the intensive care unit where she was given additional 2 L of normal saline. Subsequently she was placed on pressors and currently due for this clinic at 0.02 g per KG per minute. Urine output is no order of 400 mL since she is been to our intensive care unit. Creatinine today is slightly improved since down to 1.6. However, her LFTs are abnormal. As noted today, the AST is 155 and AST is 668 with a bilirubin of 4.8. Hepatitis profile is been negative. No further investigation was not regarding this abnormal LFTs and lives do not see any comments made by gastroenterology. She is awake and alert. Echo of the heart was done and it showed an ejection fraction of 5-60% and there is moderate to severe enlargement of the a with right-sided systolic pressure of 44 mmHg. Currently she is receiving IV fluids with 100 mL an hour of normal saline. No fever. No chills. No nausea. No vomiting. No emesis. Current hemoglobin is at 7.9. Platelet count is at 219. No anticoagulants for now. Serum bicarb is down to 18 Review of Systems Constitutional: Reports fatigue, Reports weakness Eyes: denies as per HPI, denies blurred vision, denies bulging eye, denies decreased vision, denies diplopia, denies discharge, denies dry eye, denies irritation, denies itching, denies pain, denies photophobia, denies loss of peripheral vision, denies loss of vision, denies tunnel vision/blind spots Ears: deny: decreased hearing, ear discharge, earache, tinnitus Ears, nose, mouth and throat: Denies headache, Denies sore throat Breasts: absent: as per HPI, change in shape, gynecomastia, masses, nipple discharge, pain, skin changes, swelling Cardiovascular: Reports dyspnea on exertion Respiratory: Reports dyspnea Gastrointestinal: Reports BRBPR Genitourinary: Reports as per HPI Menstruation: Reports as per HPI Musculoskeletal: Reports as per HPI Musculoskeletal: bilateral: ankle pain, ankle stiffness, ankle swelling Integumentary: Denies pruritus, Denies rash Neurological: Reports weakness Psychiatric: Reports as per HPI Endocrine: Reports as per HPI Past Medical History Past Medical History: Asthma, Coronary Artery Disease (CAD), Cancer, Diabetes Mellitus, Hyperlipidemia, Hypertension, Myocardial Infarction (HI), Thyroid Disorder Additional Past Medical History / Comment(s): HI: 1984; CA: uterus Last Myocardial Infarction Date:: 1984 History of Any Multi-Drug Resistant Organisms: None Reported Past Surgical History: Cholecystectomy, Hysterectomy, Orthopedic Surgery Additional Past Surgical History / Comment(s): Right knee arthroplasty, hysterectomy in 2014 for uterine cancer and previous history of colonoscopy Past Anesthesia/Blood Transfusion Reactions: No Reported Reaction Smoking Status: Former smoker - Past Family History Mother Family Medical History: No Reported History, Dementia Additional Family Medical History / Comment(s): "94 & very healthy" Father Family Medical History: Cancer, Coronary Artery Disease (CAD), CVA/TIA Additional Family Medical History / Comment(s): "passed when 87" "first stoke wwhen 49"; CA: skin; nerve issues due to the war Medications and Allergies Home Medications Medication Instructions Recorded Confirmed Type Aspirin 325 mg PO HS 12/13/15 06/22/19 History Cetirizine HCl [Zyrtec] 10 mg PO DAILY 12/13/15 06/22/19 History Levothyroxine Sodium [Synthroid] 224 mcg PO QAM 12/13/15 06/22/19 History Losartan/Hydrochlorothiazide 1 tab PO DAILY 12/13/15 06/22/19 History [Losartan-Hctz 100-25 mg Tab] Multivitamins, Thera [Multivitamin] 1 tab PO QAM 12/13/15 06/22/19 History Atorvastatin [Lipitor] 10 mg PO HS 06/22/19 06/22/19 History Citalopram Hydrobromide [CeleXA] 20 mg PO HS 06/22/19 06/22/19 History Cyanocobalamin (Vitamin B-12) 5,000 mcg PO DAILY 06/22/19 06/22/19 History [Vitamin B-12] L.acidoph,Paracasei, B.lactis 1 cap PO DAILY 06/22/19 06/22/19 History [Probiotic] Magnesium Oxide 400 mg PO DAILY 06/22/19 06/22/19 History Potassium Gluconate 99 mg PO DAILY 06/22/19 06/22/19 History Allergies Allergy/AdvReac Type Severity Reaction Status Date / Time pesticide Allergy Dyspnea Verified 06/22/19 11:57 Physical Exam Vitals: Vital Signs Temp Pulse Pulse Resp BP BP BP 06/26/19 10:00 68 22 111/48 06/26/19 09:30 66 20 102/48 06/26/19 09:00 65 15 99/44 06/26/19 08:30 66 16 98/48 06/26/19 08:00 98.4 F 65 15 99/48 06/26/19 07:30 66 15 102/47 06/26/19 07:00 65 16 90/45 06/26/19 06:30 64 18 99/65 06/26/19 06:00 60 20 82/63 06/26/19 05:30 63 16 81/40 06/26/19 05:00 65 15 82/50 06/26/19 04:53 06/26/19 04:30 66 16 85/38 06/26/19 04:00 98.0 F 65 16 76/44 06/26/19 03:05 76 89/60 06/26/19 03:00 65 89/47 06/26/19 02:50 65 82/44 06/26/19 02:45 84/48 06/26/19 02:40 65 80/46 06/26/19 02:35 64 74/41 06/26/19 02:30 65 77/45 06/26/19 02:10 64 82/42 06/26/19 01:30 86 85/51 06/26/19 01:00 81 87/55 06/26/19 00:30 62 80/48 06/26/19 00:15 110 H 77/50 06/25/19 23:35 97.5 F L 111 H 16 74/40 80/53 06/25/19 19:40 98.1 F 112 H 18 06/25/19 18:39 114 H 20 06/25/19 16:00 16 06/25/19 15:46 97.7 F 72 16 BP Pulse Ox 06/26/19 10:00 96 06/26/19 09:30 95 06/26/19 09:00 96 06/26/19 08:30 96 06/26/19 08:00 96 06/26/19 07:30 96 06/26/19 07:00 97 06/26/19 06:30 96 06/26/19 06:00 96 06/26/19 05:30 96 06/26/19 05:00 96 06/26/19 04:53 97 06/26/19 04:30 06/26/19 04:00 96 06/26/19 03:05 06/26/19 03:00 06/26/19 02:50 06/26/19 02:45 06/26/19 02:40 06/26/19 02:35 06/26/19 02:30 06/26/19 02:10 06/26/19 01:30 06/26/19 01:00 06/26/19 00:30 06/26/19 00:15 94 L 06/25/19 23:35 95 06/25/19 19:40 90/53 95 06/25/19 18:39 98/49 93 L 06/25/19 16:00 06/25/19 15:46 94/51 93 L Intake and Output 06/25/19 06/26/19 06/26/19 22:59 06:59 14:59 Intake Total 240 310 359.810 Output Total 400 0 Balance -160 310 359.810 Intake: IV 310 300 Invasive Line 3 10 Sodium Chloride 0.9% 1, 300 300 000 ml @ 100 mls/hr IV . Q10H [facility] Rx#:[id number] Intake, IV Titration 59.810 Amount Norepinephrine 4 mg In 59.810 Sodium Chloride 0.9% 250 ml @ 0.05 MCG/KG/MIN 24. 346 mls/hr IV .[id number] [facility] Rx#:[id number] Oral 240 Output: Urine 400 0 Other: Voiding Method Toilet Toilet # Voids 2 0 # Bowel Movements 0 GENERAL: The patient is alert and oriented x3, not in any acute distress. Well developed, well nourished. She is morbidly obese with a BMI of 50.7 Head exam was generally normal. There was no scleral icterus or corneal arcus. Mucous membranes were moist. HEENT: Pupils are round and equally reacting to light. EOMI. No scleral icterus. No conjunctival pallor. Normocephalic, atraumatic. No pharyngeal erythema. No thyromegaly. The patient has some jaundice and conjunctival icterus. CARDIOVASCULAR: S1 and S2 present. No rubs, or gallops. Systolic murmur and diuretic area as well as tricuspid area may be a loud P2 PULMONARY: Chest is clear to auscultation, no wheezing or crackles. ABDOMEN: Soft, nontender, nondistended, normoactive bowel sounds. No palpable organomegaly. MUSCULOSKELETAL: No joint swelling or deformity. EXTREMITIES: No cyanosis, clubbing, S1 to 2 pitting edema in lower extremities bilaterally. NEUROLOGICAL: Gross neurological examination did not reveal any focal deficits. Examination of the skin revealed no evidence of significant rashes, suspicious appearing nevi or other concerning lesions. Results - Laboratory Findings CBC and BMP: 06/26/19 06:25 06/26/19 06:25 Abnormal lab findings: Abnormal Labs 06/22/19 06/22/19 06/22/19 10:10 10:10 10:10 WBC 11.1 H RBC 2.50 L Hgb 8.5 L Hct 26.0 L MCV 103.9 H RDW 19.2 H Neutrophils # 9.5 H Lymphocytes # Macrocytosis Sodium Chloride Carbon Dioxide BUN 57 H Creatinine Glucose 114 H POC Glucose (mg/dL) Calcium Phosphorus Magnesium Total Bilirubin 5.2 H AST 470 H ALT 99 H Alkaline Phosphatase 209 H Troponin I 0.064 H* Total Protein 5.7 L Albumin 2.9 L Urine Appearance Urine Protein Urine Bilirubin Ur Squamous Epith Cells Amorphous Sediment Urine Bacteria Urine Mucus 06/22/19 06/23/19 06/23/19 12:49 05:33 05:33 WBC RBC 2.31 L Hgb 7.8 L Hct 24.7 L MCV 107.0 H RDW 19.4 H Neutrophils # Lymphocytes # Macrocytosis Marked A Sodium Chloride Carbon Dioxide BUN 65 H Creatinine 1.24 H Glucose POC Glucose (mg/dL) Calcium Phosphorus Magnesium Total Bilirubin AST ALT Alkaline Phosphatase Troponin I Total Protein Albumin Urine Appearance Turbid H Urine Protein Trace H Urine Bilirubin 1+ H Ur Squamous Epith Cells 11 H Amorphous Sediment Rare H Urine Bacteria Rare H Urine Mucus Rare H 06/24/19 06/25/19 06/25/19 06:49 07:31 07:31 WBC RBC 2.22 L 2.24 L Hgb 7.7 L 7.6 L Hct 23.8 L 24.1 L MCV 107.4 H 107.5 H RDW 19.7 H 18.8 H Neutrophils # Lymphocytes # 0.7 L 0.8 L Macrocytosis Marked A Marked A Sodium Chloride Carbon Dioxide BUN 63 H Creatinine 1.74 H Glucose 100 H POC Glucose (mg/dL) Calcium 8.1 L Phosphorus Magnesium Total Bilirubin AST ALT Alkaline Phosphatase Troponin I Total Protein Albumin Urine Appearance Urine Protein Urine Bilirubin Ur Squamous Epith Cells Amorphous Sediment Urine Bacteria Urine Mucus 06/25/19 06/25/19 06/26/19 19:17 19:17 01:27 WBC RBC 2.26 L 2.40 L Hgb 7.7 L 8.0 L Hct 24.4 L 25.6 L MCV 107.9 H 106.8 H RDW 19.0 H 18.4 H Neutrophils # 8.3 H Lymphocytes # 0.8 L 0.9 L Macrocytosis Marked A Marked A Sodium 136 L Chloride Carbon Dioxide 19 L BUN 66 H Creatinine 1.89 H Glucose 125 H POC Glucose (mg/dL) Calcium 7.9 L Phosphorus 4.6 H Magnesium 2.4 H Total Bilirubin AST ALT Alkaline Phosphatase Troponin I Total Protein Albumin Urine Appearance Urine Protein Urine Bilirubin Ur Squamous Epith Cells Amorphous Sediment Urine Bacteria Urine Mucus 06/26/19 06/26/19 06/26/19 02:42 02:54 02:54 WBC RBC 2.28 L Hgb 7.7 L Hct 24.3 L MCV 107.0 H RDW 18.6 H Neutrophils # Lymphocytes # 0.6 L Macrocytosis Marked A Sodium 136 L Chloride Carbon Dioxide 21 L BUN 63 H Creatinine 1.81 H Glucose 114 H POC Glucose (mg/dL) 120 H Calcium 7.7 L Phosphorus Magnesium Total Bilirubin 4.8 H AST 668 H ALT 155 H Alkaline Phosphatase 249 H Troponin I Total Protein 5.3 L Albumin 2.6 L Urine Appearance Urine Protein Urine Bilirubin Ur Squamous Epith Cells Amorphous Sediment Urine Bacteria Urine Mucus 06/26/19 06/26/19 06/26/19 04:08 06:25 06:25 WBC RBC 2.34 L Hgb 7.9 L Hct 25.1 L MCV 107.1 H RDW 18.6 H Neutrophils # 7.9 H Lymphocytes # 0.9 L Macrocytosis Marked A Sodium 136 L Chloride 109 H Carbon Dioxide 18 L BUN 64 H Creatinine 1.65 H Glucose 102 H POC Glucose (mg/dL) 113 H Calcium 7.6 L Phosphorus Magnesium Total Bilirubin AST ALT Alkaline Phosphatase Troponin I Total Protein Albumin Urine Appearance Urine Protein Urine Bilirubin Ur Squamous Epith Cells Amorphous Sediment Urine Bacteria Urine Mucus - Diagnostic Findings Chest x-ray: image reviewed Assessment and Plan Plan: 1 acute GI bleeding of an unknown source. EGD and colonoscopy has shown some gastritis and diverticulosis without evidence of an acute bleeding. The patient's hemoglobin dropped down to 7.6 which was the lowest level and the patient did not require any blood transfusion. Current hemoglobin is at 7.9. 2 abnormal LFTs with elevated bilirubin and disturbed AST and ALT. The patient is postcholecystectomy. Further workup will be needed. That's profile has been negative. 3 acute kidney injury probably related to a combination of hypotension, Huang inhibitors and diuretic. Creatinine was up to 1.89 and currently is improving as the patient is showing improvement in the urine output 4 hypotension. The patient probably has a combination of drug and hypovolemic hypotension. She received a total of 2 L of IV fluids pH is requiring low-dose pressors per she will benefit from additional fluids to get off the pressors for now. Note that echocardiogram showed evidence of moderate degree of pulmonary hypertension with signs of chronic pulmonary hypertension and right-sided failure. 5 morbid obesity with a BMI 50.7. Rule out underlying sleep breathing disorder 6 hypothyroidism 7 coronary artery disease with previous HI 8 previous history of GI bleeding 9 hypertension 10 hyperlipidemia 11 abnormal nonspecific troponin rise, seen by cardiology Plan We'll give the patient another 1 L of IV fluid and try to wean off the pressors. As far as the abnormal LFTs, this is to be further worked up. The exact cause is not clear. I would suggest obtaining an amylase and lipase level. The bilirubin is elevated. Rule out congestive hepatopathy related to right-sided heart failure. Will stop the Tylenol for now. Reviewing the rest of medication, do not see any hepatotoxic medications that the patient is taking by mouth continue Synthroid for now. A CAT scan of the abdomen will be of value. I'm going to consult with gastroenterology regarding this abnormal LFTs and proceed accordingly. We'll continue to follow. The patient be kept in ICU to the blood pressure is further normalized. On further discussion with the family, I can't, the patient's LFTs have been chronically elevated. I am concerned of either fatty liver or congestive hepatopathy related to right-sided failure. I would like to get the results of the ultrasound of the liver that was done at her primary care physician's office. Will also consult with gastroenterology.
[2019-06-26] MEDS ORDERED: SODIUM CHLORIDE 0.9% 500 ML 500 ML IV ONE (12:40)
[2019-06-26 12:51] LABS: Amylase 68 U/L (30-110)
[2019-06-26 13:22] LABS: INR 1.4 (<1.2); Partial Thromboplastin Time 30.3 sec (22.0-30.0)
--- NOTE | 2019-06-26 14:53 | P.PN ---
Subjective Progress Note Date: 06/26/19 CHIEF COMPLAINT: GI Bleeding HISTORY OF PRESENT ILLNESS: The patient is a 78-year-old female status post upper and lower endoscopy for GI bleed. She had been transferred from the floor to the intensive care unit for hypotension unresponsive to IV fluid boluses. She denies any abdominal pain today. On workup in the critical care unit, patient had a metabolic panel confirming moderate liver disease with elevated AST, ALT, alkaline phosphatase. Also total bilirubin level moderately elevated over 4.0. INR was also over 1.4. Per discussion with high school professional, patient has chronic liver disease however without any full workup. She is sitting up at bedside. No reports of abdominal pain. No reports of blood in stools. Patient presents with new problem of hypotension including liver disease. ROS: No reports of nausea and vomiting. No bloody bowel movements. No fevers or chills. No new chest pain. No productive sputum PHYSICAL EXAM: VITAL SIGNS: Reviewed CONSTITUTIONAL: Well developed and in no acute distress. EYES: Extraocular movements grossly intact. Wears glasses. HEAD, EARS, NOSE, THROAT: Moist buccal mucosa. Head is atraumatic, normocephalic. Hears conversational speech. No nasal drainage. RESPIRATORY: Non-labored respirations and equal bilateral excursions. CARDIOVASCULAR: Palpable 2+ radial pulses ABDOMEN: Morbidly obese, soft, non-tender, non-distended. MUSCULOSKELETAL: No gross deformity of the lower extremities noted. SKIN: Good skin turgor. Well perfused. NEUROLOGIC: Cranial nerves I through XII grossly intact. No focal or lateralizing signs. PSYCH: Appropriate affect. Alert and oriented to person, place and time. LABS: AST, ALT, alkaline phosphatase moderately elevated. Total bilirubin elevated 4.8 ASSESSMENT: 1. Chronic liver disease 2. Hyperbilirubinemia 3. History of GI bleed 4. Hypotension 5. Acute on chronic liver disease PLAN: 1. Agree with GI consultation for liver disease. Ultrasound of the abdomen limited with the patient's body habitus. 2. Recommend CT of the abdomen and pelvis with oral but without IV contrast secondary to acute kidney injury which is new since admission. 3. May need additional studies including MRI of the liver and hepatobiliary system Objective - Vital Signs Vital signs: Vital Signs Temp 97.4 F L 06/26/19 12:30 Pulse 60 06/26/19 14:00 Resp 20 06/26/19 14:00 BP 93/40 06/26/19 14:00 Pulse Ox 96 06/26/19 14:00 Intake & Output 06/25/19 06/26/19 06/26/19 18:59 06:59 18:59 Intake Total 6287 167 9942.696 Output Total 800 600 Balance 480 310 641.696 Intake: IV 847 603 6018 Invasive Line 3 10 Sodium Chloride 0.9% 1, 800 300 600 000 ml @ 100 mls/hr IV . Q10H [facility] Rx#:[id number] Sodium Chloride 0.9% 500 500 ml 500 ml @ 999 mls/hr IV .Q31M [facility] Rx#:[id number] Intake, IV Titration 141.696 Amount Norepinephrine 4 mg In 141.696 Sodium Chloride 0.9% 250 ml @ 0.05 MCG/KG/MIN 24. 346 mls/hr IV .[id number] [facility] Rx#:[id number] Oral 480 Output: Urine 800 600 Other: Voiding Method Toilet Toilet Bedside Commode # Voids 2 0 # Bowel Movements 0 1 - Labs CBC & Chem 7: 06/26/19 06:25 06/26/19 06:25 Labs: Abnormal Lab Results - Last 24 Hours (Table) 06/25/19 06/25/19 06/26/19 Range/Units 19:17 19:17 01:27 RBC 2.26 L 2.40 L (3.80-5.40) m/uL Hgb 7.7 L 8.0 L (11.4-16.0) gm/dL Hct 24.4 L 25.6 L (34.0-46.0) % MCV 107.9 H 106.8 H (80.0-100.0) fL RDW 19.0 H 18.4 H (11.5-15.5) % Neutrophils # 8.3 H (1.3-7.7) k/uL Lymphocytes # 0.8 L 0.9 L (1.0-4.8) k/uL Macrocytosis Marked A Marked A PT (9.0-12.0) sec INR (<1.2) APTT (22.0-30.0) sec Sodium 136 L (137-145) mmol/L Chloride (98-107) mmol/L Carbon Dioxide 19 L (22-30) mmol/L BUN 66 H (7-17) mg/dL Creatinine 1.89 H (0.52-1.04) mg/dL Glucose 125 H (74-99) mg/dL POC Glucose (mg/dL) (75-99) mg/dL Calcium 7.9 L (8.4-10.2) mg/dL Phosphorus 4.6 H (2.5-4.5) mg/dL Magnesium 2.4 H (1.6-2.3) mg/dL Total Bilirubin (0.2-1.3) mg/dL AST (14-36) U/L ALT (9-52) U/L Alkaline Phosphatase (38-126) U/L Total Protein (6.3-8.2) g/dL Albumin (3.5-5.0) g/dL Lipase (23-300) U/L 06/26/19 06/26/19 06/26/19 Range/Units 02:42 02:54 02:54 RBC 2.28 L (3.80-5.40) m/uL Hgb 7.7 L (11.4-16.0) gm/dL Hct 24.3 L (34.0-46.0) % MCV 107.0 H (80.0-100.0) fL RDW 18.6 H (11.5-15.5) % Neutrophils # (1.3-7.7) k/uL Lymphocytes # 0.6 L (1.0-4.8) k/uL Macrocytosis Marked A PT (9.0-12.0) sec INR (<1.2) APTT (22.0-30.0) sec Sodium 136 L (137-145) mmol/L Chloride (98-107) mmol/L Carbon Dioxide 21 L (22-30) mmol/L BUN 63 H (7-17) mg/dL Creatinine 1.81 H (0.52-1.04) mg/dL Glucose 114 H (74-99) mg/dL POC Glucose (mg/dL) 120 H (75-99) mg/dL Calcium 7.7 L (8.4-10.2) mg/dL Phosphorus (2.5-4.5) mg/dL Magnesium (1.6-2.3) mg/dL Total Bilirubin 4.8 H (0.2-1.3) mg/dL AST 668 H (14-36) U/L ALT 155 H (9-52) U/L Alkaline Phosphatase 249 H (38-126) U/L Total Protein 5.3 L (6.3-8.2) g/dL Albumin 2.6 L (3.5-5.0) g/dL Lipase (23-300) U/L 06/26/19 06/26/19 06/26/19 Range/Units 04:08 06:25 06:25 RBC 2.34 L (3.80-5.40) m/uL Hgb 7.9 L (11.4-16.0) gm/dL Hct 25.1 L (34.0-46.0) % MCV 107.1 H (80.0-100.0) fL RDW 18.6 H (11.5-15.5) % Neutrophils # 7.9 H (1.3-7.7) k/uL Lymphocytes # 0.9 L (1.0-4.8) k/uL Macrocytosis Marked A PT (9.0-12.0) sec INR (<1.2) APTT (22.0-30.0) sec Sodium 136 L (137-145) mmol/L Chloride 109 H (98-107) mmol/L Carbon Dioxide 18 L (22-30) mmol/L BUN 64 H (7-17) mg/dL Creatinine 1.65 H (0.52-1.04) mg/dL Glucose 102 H (74-99) mg/dL POC Glucose (mg/dL) 113 H (75-99) mg/dL Calcium 7.6 L (8.4-10.2) mg/dL Phosphorus (2.5-4.5) mg/dL Magnesium (1.6-2.3) mg/dL Total Bilirubin (0.2-1.3) mg/dL AST (14-36) U/L ALT (9-52) U/L Alkaline Phosphatase (38-126) U/L Total Protein (6.3-8.2) g/dL Albumin (3.5-5.0) g/dL Lipase (23-300) U/L 06/26/19 06/26/19 Range/Units 06:25 13:01 RBC (3.80-5.40) m/uL Hgb (11.4-16.0) gm/dL Hct (34.0-46.0) % MCV (80.0-100.0) fL RDW (11.5-15.5) % Neutrophils # (1.3-7.7) k/uL Lymphocytes # (1.0-4.8) k/uL Macrocytosis PT 14.0 H (9.0-12.0) sec INR 1.4 H (<1.2) APTT 30.3 H (22.0-30.0) sec Sodium (137-145) mmol/L Chloride (98-107) mmol/L Carbon Dioxide (22-30) mmol/L BUN (7-17) mg/dL Creatinine (0.52-1.04) mg/dL Glucose (74-99) mg/dL POC Glucose (mg/dL) (75-99) mg/dL Calcium (8.4-10.2) mg/dL Phosphorus (2.5-4.5) mg/dL Magnesium (1.6-2.3) mg/dL Total Bilirubin (0.2-1.3) mg/dL AST (14-36) U/L ALT (9-52) U/L Alkaline Phosphatase (38-126) U/L Total Protein (6.3-8.2) g/dL Albumin (3.5-5.0) g/dL Lipase 717 H (23-300) U/L Assessment and Plan (1) Hypovolemic shock Current Visit: Yes Status: Acute Code(s): R57.1 - HYPOVOLEMIC SHOCK SNOMED Code(s): 72724931 (2) Liver function failure Current Visit: Yes Status: Acute Code(s): K72.90 - HEPATIC FAILURE, UNSPECIFIED WITHOUT COMA SNOMED Code(s): 79451627 (3) Acute GI bleeding Current Visit: Yes Status: Acute Code(s): K92.2 - GASTROINTESTINAL HEMORRHAGE, UNSPECIFIED SNOMED Code(s): 52453659 (4) Acute kidney failure Current Visit: Yes Status: Acute Code(s): N17.9 - ACUTE KIDNEY FAILURE, UNSPECIFIED SNOMED Code(s): 98526131 (5) Anemia Current Visit: Yes Status: Acute Code(s): D64.9 - ANEMIA, UNSPECIFIED SNOMED Code(s): 131130191 (6) BMI 50.0-59.9, adult Current Visit: Yes Status: Acute Code(s): Z68.43 - BODY MASS INDEX (BMI) 50.0-59.9, ADULT SNOMED Code(s): 367150250 (7) Coronary artery disease involving [place] coronary artery Current Visit: Yes Status: Acute Code(s): I25.10 - ATHSCL HEART DISEASE OF [place] CORONARY ARTERY W/O ANG PCTRS SNOMED Code(s): 3998431466233 (8) Depressive disorder Current Visit: Yes Status: Acute Code(s): F32.9 - MAJOR DEPRESSIVE DISORDER, SINGLE EPISODE, UNSPECIFIED SNOMED Code(s): 58678287 (9) Elevated LFTs Current Visit: Yes Status: Acute Code(s): R94.5 - ABNORMAL RESULTS OF LIVER FUNCTION STUDIES SNOMED Code(s): 519215159 (10) History of PA (myocardial infarction) Current Visit: Yes Status: Acute Code(s): I25.2 - OLD MYOCARDIAL INFARCTION SNOMED Code(s): 451258774 (11) Hyperlipidemia Current Visit: Yes Status: Acute Code(s): E78.5 - HYPERLIPIDEMIA, UNSPECIFIED SNOMED Code(s): 21556176 (12) Hypothyroidism Current Visit: Yes Status: Acute Code(s): E03.9 - HYPOTHYROIDISM, UNSPECIFIED SNOMED Code(s): 31947958 (13) Iron deficiency anemia Current Visit: Yes Status: Acute Code(s): D50.9 - IRON DEFICIENCY ANEMIA, UNSPECIFIED SNOMED Code(s): 22603258 (14) Morbid obesity due to excess calories Current Visit: Yes Status: Acute Code(s): E66.01 - MORBID (SEVERE) OBESITY DUE TO EXCESS CALORIES SNOMED Code(s): 666160991
[2019-06-26] MEDS: IOPAMIDOL CONTRAST (ORAL USE) VIAL PO PRN ×2 (16:23→17:28)
--- NOTE | 2019-06-26 19:00 | CT ---
EXAMINATION TYPE: CT abdomen pelvis wo con DATE OF EXAM: 06/26/2019 COMPARISON: None INDICATION: abnormal labs DLP: 2417.4 mGycm, Automated exposure control for dose reduction was used. CONTRAST: 0 mL of Isovue 300. Study performed with Oral Contrast TECHNIQUE: Axial images were obtained from above the diaphragm to the pubic rami in the axial plane a t 5 mm thick sections. Reconstructed images are reviewed on the computer in the coronal plane. FINDINGS: Limited CT sections are obtained the lung bases. There are several nodules present within the lung b ases bilaterally. The largest at the right lateral lung base measuring 1.1 cm with additional smaller nodules nearby. Series 204 image 4. The largest at the left posterior lateral lung base measures 0.6 cm. Series 204 image 17. There is a more masslike area within the posterior right lung posterior to the diaphragm. This area measures approximately 2.6 x 1.8 cm. Series 204 image 16. Small bilateral p leural effusions are present. Mild coronary artery calcifications present. CT ABDOMEN: Ascites is present adjacent to the liver and spleen and extending through the right parac olic gutter. Fluid is within the pelvis. Liver: Noncontrast imaging through the liver appear somewhat patchy. Discrete mass is however are not clearly identified. Biliary dilatation is not appreciated. Spleen: Normal Pancreas: There is some fatty infiltration of the pancreas. Adrenal glands: The adrenal glands as visualized are normal. Gallbladder: Surgically absent Kidneys: No masses are evident. No hydronephrosis is present. No cysts are present. No renal stone s are evident. Aorta: Vascular calcification is within the aorta. Inferior vena cava: Normal. CT PELVIS: Mild wall thickening of the ascending colon may be present. There is incomplete distention of the col on with contrast limiting their evaluation. There are loops of small bowel lacking oral contrast limi ting their evaluation. No obstruction is evident. Oral contrast extends to the distal colon. Fecal de bris is at the rectum. There are loops of bowel which are incompletely distended or lack oral contras t limiting their evaluation. Appendix: Not identified. No suspicious tubular structures or inflammatory changes identified. Clinic al management of any suspected appendicitis will be required. Urinary bladder: Normal as visualized. Genitourinary structures: Uterus and ovaries are not identified. Osseous structures: No suspicious lytic or sclerotic lesions. Facet degenerative changes are in the l ower lumbar spine. IMPRESSIONS: 1. Multiple bilateral pulmonary nodules greater on the right. Larger collection may be posterior to the right diaphragm. Neoplasm should be considered within the differential. Center follow-up CT chest . 2. Small bilateral pleural effusions. 3. Ascites. 4. Some wall thickening of the ascending colon is not excluded. Correlate for colitis. 5. Somewhat patchy density within the liver is nonspecific on this noncontrast study.
[2019-06-26] MEDS: ATORVASTATIN 10 MG TAB PO SCH (20:30)
[2019-06-26] MEDS: CITALOPRAM HYDROBROMIDE 20 MG TAB PO SCH (20:30)
[2019-06-27] MEDS: NOREPINEPHRINE 4 MG in SODIUM CHLORIDE 0.9% 250 ML IV SCH ×3 (02:31→21:38)
[2019-06-27] MEDS: SODIUM CHLORIDE 0.9% 1,000 ML IV SCH ×3 (03:03→21:37)
[2019-06-27 05:12] LABS: Anisocytosis Slight; Basophils % (A) 0 %; Eosinophils # (A) 0.1 k/uL (0-0.7); Eosinophils % (A) 1 %; HCT 26.1 % (34.0-46.0); HGB 8.2 gm/dL (11.4-16.0); Hypochromasia Moderate; Lymphocytes # (A) 0.7 k/uL (1.0-4.8); Lymphocytes % (A) 6 %; MCH 33.7 pg (25.0-35.0); MCHC 31.3 g/dL (31.0-37.0); MCV 107.7 fL (80.0-100.0); Mean Platelet Volume 6.5; Monocytes # (A) 0.7 k/uL (0-1.0); Monocytes % (A) 5 %; Neutrophils # (A) 10.5 k/uL (1.3-7.7); Neutrophils % (A) 86 %; Platelet Count 332 k/uL (150-450); RBC 2.42 m/uL (3.80-5.40); RDW 18.7 % (11.5-15.5); WBC 12.3 k/uL (3.8-10.6)
[2019-06-27 05:20] LABS: Macrocytosis Marked
[2019-06-27 05:25] LABS: Albumin 2.7 g/dL (3.5-5.0); Calcium 7.6 mg/dL (8.4-10.2); Potassium 3.7 mmol/L (3.5-5.1); Total Bilirubin 6.1 mg/dL (0.2-1.3); Total Protein 5.6 g/dL (6.3-8.2)
[2019-06-27] MEDS ORDERED: Potassium Replacement Protocol 1 EACH MISC MISCELLANE PRN (05:55)
[2019-06-27] MEDS ORDERED: POTASSIUM CHLORIDE ER 20 MEQ TAB.ER PO SCH (06:00)
[2019-06-27] MEDS: LEVOTHYROXINE 112 MCG TAB PO SCH (06:50)
[2019-06-27] MEDS: PANTOPRAZOLE 40 MG/10 ML VIAL IV SCH ×2 (08:36→20:03)
--- NOTE | 2019-06-27 10:30 | P.PN ---
Subjective Progress Note Date: 06/27/19 CHIEF COMPLAINT: GI bleed HISTORY OF PRESENT ILLNESS: 78-year-old female who is status post EGD and colonoscopy revealing gastritis, esophagitis, and diverticulosis. Patient has had no further episodes of rectal bleeding. Bowel movements have been brown in color. Hemoglobin has remained stable. 8.2 this morning. Bilirubin 6.1. AST 630. ALT 169. Alkaline phosphatase 257. PHYSICAL EXAM: VITAL SIGNS: Reviewed. GENERAL: Well-developed in no acute distress. HEENT: No sclera icterus. Extraocular movements grossly intact. Moist buccal mucosa. Head is atraumatic, normocephalic. ABDOMEN: Soft. Nondistended. Nontender. NEUROLOGIC: Alert and oriented. Cranial nerves II through XII grossly intact. ASSESSMENT: 1. GI bleed 2. Hyperbilirubinemia 3. Transaminitis 4. History of cholecystectomy PLAN: GI has been consulted to evaluate patients elevated LFTs. Patient to remain NPO until evaluated by GI physician. Okay to begin diet from a surgical standpoint. No further surgical intervention recommended at this time. Nurse practitioner note has been reviewed by physician. Signing provider agrees with the documented findings, assessment, and plan of care. Objective - Vital Signs Vital signs: Vital Signs Temp 98 F 06/27/19 04:00 Pulse 68 06/27/19 10:00 Resp 15 06/27/19 10:00 BP 94/42 06/27/19 10:00 Pulse Ox 96 06/27/19 10:00 Intake & Output 06/26/19 06/27/19 06/27/19 18:59 06:59 18:59 Intake Total 3008.819 1855.218 363.786 Output Total 1202 475 350 Balance 6671.277 9179.218 13.786 Weight 131.9 kg Intake: IV 1500 1200 300 Sodium Chloride 0.9% 1, 1000 1200 300 000 ml @ 100 mls/hr IV . Q10H [facility] Rx#:[id number] Sodium Chloride 0.9% 500 500 ml 500 ml @ 999 mls/hr IV .Q31M [facility] Rx#:[id number] Intake, IV Titration 248.819 655.218 63.786 Amount Norepinephrine 4 mg In 248.819 655.218 63.786 Sodium Chloride 0.9% 250 ml @ 0.05 MCG/KG/MIN 24. 346 mls/hr IV .[id number] [facility] Rx#:[id number] Oral 1260 Output: Urine 1200 475 350 Stool 2 Other: Voiding Method Bedside Commode Bedside Commode Bedside Commode # Voids 0 0 # Bowel Movements 1 1 1 - Labs CBC & Chem 7: 06/27/19 04:31 06/27/19 04:28 Labs: Abnormal Lab Results - Last 24 Hours (Table) 06/26/19 06/26/19 06/27/19 Range/Units 06:25 13:01 04:28 WBC (3.8-10.6) k/uL RBC (3.80-5.40) m/uL Hgb (11.4-16.0) gm/dL Hct (34.0-46.0) % MCV (80.0-100.0) fL RDW (11.5-15.5) % Neutrophils # (1.3-7.7) k/uL Lymphocytes # (1.0-4.8) k/uL Macrocytosis PT 14.0 H (9.0-12.0) sec INR 1.4 H (<1.2) APTT 30.3 H (22.0-30.0) sec Chloride 111 H (98-107) mmol/L Carbon Dioxide 17 L (22-30) mmol/L BUN 50 H (7-17) mg/dL Creatinine 1.16 H (0.52-1.04) mg/dL Glucose 111 H (74-99) mg/dL Calcium 7.6 L (8.4-10.2) mg/dL Total Bilirubin 6.1 H (0.2-1.3) mg/dL AST 630 H (14-36) U/L ALT 169 H (9-52) U/L Alkaline Phosphatase 257 H (38-126) U/L Total Protein 5.6 L (6.3-8.2) g/dL Albumin 2.7 L (3.5-5.0) g/dL Lipase 717 H (23-300) U/L 06/27/19 Range/Units 04:31 WBC 12.3 H (3.8-10.6) k/uL RBC 2.42 L (3.80-5.40) m/uL Hgb 8.2 L (11.4-16.0) gm/dL Hct 26.1 L (34.0-46.0) % MCV 107.7 H (80.0-100.0) fL RDW 18.7 H (11.5-15.5) % Neutrophils # 10.5 H (1.3-7.7) k/uL Lymphocytes # 0.7 L (1.0-4.8) k/uL Macrocytosis Marked A PT (9.0-12.0) sec INR (<1.2) APTT (22.0-30.0) sec Chloride (98-107) mmol/L Carbon Dioxide (22-30) mmol/L BUN (7-17) mg/dL Creatinine (0.52-1.04) mg/dL Glucose (74-99) mg/dL Calcium (8.4-10.2) mg/dL Total Bilirubin (0.2-1.3) mg/dL AST (14-36) U/L ALT (9-52) U/L Alkaline Phosphatase (38-126) U/L Total Protein (6.3-8.2) g/dL Albumin (3.5-5.0) g/dL Lipase (23-300) U/L
--- NOTE | 2019-06-27 12:03 | P.PN ---
Subjective Progress Note Date: 06/27/19 No further episodes of rectal bleeding, hemoglobin 8.2. Maintained on IV fluids and Levophed drip. Renal function improving, creatinine down to 1.16. Elevated LFTs, bilirubin 6.1, AST 6:30, ALT 169, alk phos 257-GI consulted with recommendations pending. Borderline hypotension with systolic blood pressures in the 90s to low 100s. Maintaining O2 sats of high 90s on 3 L nasal cannula. Denies nausea, vomiting or diarrhea. Denies abdominal pain. Abdomen/pelvis CT reporting multiple bilateral pulmonary nodules greater on the right possible neoplasm, small bilateral pleural effusions, ascites, somewhat thickening of ascending colon, patchy density within the liver, nonspecific .Evaluated by surgery with no further surgical intervention recommended at this time. Objective - Vital Signs Vital signs: Vital Signs Temp 98 F 06/27/19 04:00 Pulse 61 06/27/19 11:00 Resp 12 06/27/19 10:30 BP 81/37 06/27/19 11:00 Pulse Ox 96 06/27/19 11:00 Intake & Output 06/26/19 06/27/19 06/27/19 18:59 06:59 18:59 Intake Total 3008.819 1855.218 512.072 Output Total 1202 475 600 Balance 9874.209 1313.218 -87.928 Weight 131.9 kg Intake: IV 1500 1200 400 Sodium Chloride 0.9% 1, 1000 1200 400 000 ml @ 100 mls/hr IV . Q10H [facility] Rx#:[id number] Sodium Chloride 0.9% 500 500 ml 500 ml @ 999 mls/hr IV .Q31M [facility] Rx#:[id number] Intake, IV Titration 248.819 655.218 112.072 Amount Norepinephrine 4 mg In 248.819 655.218 112.072 Sodium Chloride 0.9% 250 ml @ 0.05 MCG/KG/MIN 24. 346 mls/hr IV .[id number] [facility] Rx#:[id number] Oral 1260 Output: Urine 1200 475 600 Stool 2 Other: Voiding Method Bedside Commode Bedside Commode Bedside Commode # Voids 0 0 # Bowel Movements 1 1 1 - Exam GENERAL: alert and oriented x3, not in any acute distress. HEENT: Pupils are round and equally reacting to light. EOMI. No scleral icterus. No conjunctival pallor. Normocephalic, atraumatic. No pharyngeal erythema. No thyromegaly. CARDIOVASCULAR: S1 and S2 present. No rubs, or gallops. Systolic murmur PULMONARY: Chest is clear to auscultation, no wheezing or crackles. ABDOMEN: Soft, nontender, nondistended, normoactive bowel sounds. No palpable organomegaly. MUSCULOSKELETAL: No joint swelling or deformity. EXTREMITIES: Positive lower extremity edema. No clubbing, no cyanosis NEUROLOGICAL: Gross neurological examination did not reveal any focal deficits. SKIN: No rashes. - Labs CBC & Chem 7: 06/27/19 04:31 06/27/19 04:28 Labs: Abnormal Lab Results - Last 24 Hours (Table) 06/26/19 06/26/19 06/27/19 Range/Units 06:25 13:01 04:28 WBC (3.8-10.6) k/uL RBC (3.80-5.40) m/uL Hgb (11.4-16.0) gm/dL Hct (34.0-46.0) % MCV (80.0-100.0) fL RDW (11.5-15.5) % Neutrophils # (1.3-7.7) k/uL Lymphocytes # (1.0-4.8) k/uL Macrocytosis PT 14.0 H (9.0-12.0) sec INR 1.4 H (<1.2) APTT 30.3 H (22.0-30.0) sec Chloride 111 H (98-107) mmol/L Carbon Dioxide 17 L (22-30) mmol/L BUN 50 H (7-17) mg/dL Creatinine 1.16 H (0.52-1.04) mg/dL Glucose 111 H (74-99) mg/dL Calcium 7.6 L (8.4-10.2) mg/dL Total Bilirubin 6.1 H (0.2-1.3) mg/dL AST 630 H (14-36) U/L ALT 169 H (9-52) U/L Alkaline Phosphatase 257 H (38-126) U/L Total Protein 5.6 L (6.3-8.2) g/dL Albumin 2.7 L (3.5-5.0) g/dL Lipase 717 H (23-300) U/L 06/27/19 Range/Units 04:31 WBC 12.3 H (3.8-10.6) k/uL RBC 2.42 L (3.80-5.40) m/uL Hgb 8.2 L (11.4-16.0) gm/dL Hct 26.1 L (34.0-46.0) % MCV 107.7 H (80.0-100.0) fL RDW 18.7 H (11.5-15.5) % Neutrophils # 10.5 H (1.3-7.7) k/uL Lymphocytes # 0.7 L (1.0-4.8) k/uL Macrocytosis Marked A PT (9.0-12.0) sec INR (<1.2) APTT (22.0-30.0) sec Chloride (98-107) mmol/L Carbon Dioxide (22-30) mmol/L BUN (7-17) mg/dL Creatinine (0.52-1.04) mg/dL Glucose (74-99) mg/dL Calcium (8.4-10.2) mg/dL Total Bilirubin (0.2-1.3) mg/dL AST (14-36) U/L ALT (9-52) U/L Alkaline Phosphatase (38-126) U/L Total Protein (6.3-8.2) g/dL Albumin (3.5-5.0) g/dL Lipase (23-300) U/L Assessment and Plan Assessment: -Acute GI bleed, status post EGD and coloscopy reporting esophagitis, gastritis and diverticulosis. -acute renal failure secondary to hypotension, medication induced. -Acute on chronic liver disease -Coronary artery disease, history of [place] -Hyperlipidemia -Hypertension and presently with hypotension, drug-induced and hypovolemic- pressor dependent. -Obesity, morbid, BMI 52.3 -Depression -Hypothyroidism -Pulmonary hypertension -Elevated troponins, cardiology following. -Abdomen/pelvis CT reporting multiple bilateral pulmonary nodules greater on the right possible neoplasm, small bilateral pleural effusions, pulmonary following. - thickening of ascending colon, somewhat patchy density within the liver, nonspecific , GI/surgery following Plan: Continue on current medication regime ,monitoring and symptomatic treatment. NPO. IV fluid hydration, pressor support as per library director. GI consult in place with recommendations pending. Close monitoring of hemoglobin, LFTs with repeat labs ordered for a.m. abdomen/pelvis CT been reviewed by pulmonary with further recommendations to follow. The impression and plan of care has been dictated as directed. : I performed a history and examination of this patient, discussed the same with the dictator. I agree with the dictator's note ,documented as a scribe. Any additional findings or plans will be noted.
--- NOTE | 2019-06-27 12:23 | P.PN ---
Subjective Progress Note Date: 06/27/19 Principal diagnosis: Acute GI bleeding This 78-year-old. Patient got transferred to the intensive care yesterday because of hypotension. This patient was hospitalized because of GI bleeding. She was passing tarry stool. She had also noted some bright red blood with passing of clots in her stool. She denied having any dizziness or lightheadedness or abdominal pain. She also noticed some increased shortness of breath. She went to her primary care physician but after passing a large BM that was bloody she came into the emergency department on 06/23/2019. No history of alcohol use. No intake of any nonsteroidal anti-inflammatory medication. She had previous colonoscopy was done around 5 years which was normal. Hemoglobin at time of admission was 8.5. She has also abnormal LFTs with elevated bilirubin and a troponin was 0.065. The patient underwent EGD and colonoscopy during this current admission which did not reveal any significant abnormalities. It showed diverticulosis and esophagitis. The patient subsequently did not require any blood transfusion. She was started on diet. Her CHEL inhibitor and hydrochlorothiazide were discontinued. Nevertheless, she went to an acute kidney injury in the creatinine came up to 1.7. She was started on IV fluids and yesterday after being hypotensive she got chest to the intensive care unit where she was given additional 2 L of normal saline. Subsequently she was placed on pressors and currently due for this clinic at 0.02 g per KG per minute. Urine output is no order of 400 mL since she is been to our intensive care unit. Creatinine today is slightly improved since down to 1.6. However, her LFTs are abnormal. As noted today, the AST is 155 and AST is 668 with a bilirubin of 4.8. Hepatitis profile is been negative. No further investigation was not regarding this abnormal LFTs and lives do not see any comments made by gastroenterology. She is awake and alert. Echo of the heart was done and it showed an ejection fraction of 5-60% and there is moderate to severe enlargement of the a with right-sided systolic pressure of 44 mmHg. Currently she is receiving IV fluids with 100 mL an hour of normal saline. No fever. No chills. No nausea. No vomiting. No emesis. Current hemoglobin is at 7.9. Platelet count is at 219. No anticoagulants for now. Serum bicarb is down to 18 Patient was reevaluated today on 06/27/2019, remains in the ICU, presently on a small dose of norepinephrine, her dose is 0.05 mcg/kg/m. Patient received significant amount of fluids for her hypotension, and her blood pressure remains marginal. Hemoglobin today is 8.2. Her basic metabolic profile is relatively normal except for low bicarb of 17 BUN is 50 and creatinine is improving down to 1.16. 2 days ago, her hemoglobin was as high as 1.89. Lipase was noted to be elevated at 717 and amylase is 68. Patient continues to have intermittent episodes of black tarry stools, her EGD and her colonoscopy were both nondiagnostic. Hence I have recommended GI evaluation, patient may actually require a capsule endoscopy. This will be decided upon by gastroenterology. In the meantime we'll continue IV fluids, and continued to titrate the norepinephrine for her low blood pressure. Liver enzymes were noted to be elevated, her ALT is 169 AST is 630 and her total bilirubin is 7.6. CT of the abdomen and pelvis were noted, multiple nonspecific pulmonary nodules were noted, and there is a masslike opacity in the right posterior lung above the diaphragm measuring 2.61.8 cm, this was definitely need to be evaluated on outpatient basis, and decide whether the patient will require biopsy however at this point we need to address her GI issues mostly. And the patient will definitely need a dedicated CT of the chest with contrast on outpatient basis once her renal functioning improves. The patient did have some ascites, however I doubt if she has significant ascites to warrant paracentesis at this point, this will be addressed by GI consultation. Echocardiogram done on this admission was basically unremarkable. Patient remains on IV fluids at 100 mL/h, but still requiring pressors. Peña catheter could not be placed, hence exact assessment of her fluid balance is not very accurate. Objective - Vital Signs Vital signs: Vital Signs Temp 98 F 06/27/19 04:00 Pulse 61 06/27/19 11:00 Resp 12 06/27/19 10:30 BP 81/37 06/27/19 11:00 Pulse Ox 96 06/27/19 11:00 Intake & Output 06/26/19 06/27/19 06/27/19 18:59 06:59 18:59 Intake Total 3008.819 1855.218 512.072 Output Total 1202 475 600 Balance 9157.279 4449.218 -87.928 Weight 131.9 kg Intake: IV 1500 1200 400 Sodium Chloride 0.9% 1, 1000 1200 400 000 ml @ 100 mls/hr IV . Q10H EDWIN Rx#:[id number] Sodium Chloride 0.9% 500 500 ml 500 ml @ 999 mls/hr IV .Q31M ONE Rx#:[id number] Intake, IV Titration 248.819 655.218 112.072 Amount Norepinephrine 4 mg In 248.819 655.218 112.072 Sodium Chloride 0.9% 250 ml @ 0.05 MCG/KG/MIN 24. 346 mls/hr IV .[id number] EDWIN Rx#:[id number] Oral 1260 Output: Urine 1200 475 600 Stool 2 Other: Voiding Method Bedside Commode Bedside Commode Bedside Commode # Voids 0 0 # Bowel Movements 1 1 1 - Exam Physical Exam: Revealed a 78-year-old female in no distress. Head: Atraumatic, normocephalic. HEENT:[Neck is supple.] [No neck masses.] [No thyromegaly.] [No JVD.] Chest: [Clear throughout, no crackles, no rhonchi, no wheezes.] Cardiac Exam: [Normal S1 and S2, no S3 gallop, no murmur.] Abdomen: [Soft, nontender, no megaly, no rebound, no guarding, normal bowel sounds.] Extremities: [No clubbing, 2+ bipedal edema, no cyanosis.] Neurological Exam: [No focal neurologic deficit.] Alert and oriented 3. Psychiatric: Normal mood affect and normal mental status examination. Skin: No rashes. Musculoskeletal: No joint swelling or deformity, no limitation in range of motion. Lymphatics: No lymphadenopathy. - Labs CBC & Chem 7: 06/27/19 04:31 06/27/19 04:28 Labs: Abnormal Lab Results - Last 24 Hours (Table) 06/26/19 06/26/19 06/27/19 Range/Units 06:25 13:01 04:28 WBC (3.8-10.6) k/uL RBC (3.80-5.40) m/uL Hgb (11.4-16.0) gm/dL Hct (34.0-46.0) % MCV (80.0-100.0) fL RDW (11.5-15.5) % Neutrophils # (1.3-7.7) k/uL Lymphocytes # (1.0-4.8) k/uL Macrocytosis PT 14.0 H (9.0-12.0) sec INR 1.4 H (<1.2) APTT 30.3 H (22.0-30.0) sec Chloride 111 H (98-107) mmol/L Carbon Dioxide 17 L (22-30) mmol/L BUN 50 H (7-17) mg/dL Creatinine 1.16 H (0.52-1.04) mg/dL Glucose 111 H (74-99) mg/dL Calcium 7.6 L (8.4-10.2) mg/dL Total Bilirubin 6.1 H (0.2-1.3) mg/dL AST 630 H (14-36) U/L ALT 169 H (9-52) U/L Alkaline Phosphatase 257 H (38-126) U/L Total Protein 5.6 L (6.3-8.2) g/dL Albumin 2.7 L (3.5-5.0) g/dL Lipase 717 H (23-300) U/L 06/27/19 Range/Units 04:31 WBC 12.3 H (3.8-10.6) k/uL RBC 2.42 L (3.80-5.40) m/uL Hgb 8.2 L (11.4-16.0) gm/dL Hct 26.1 L (34.0-46.0) % MCV 107.7 H (80.0-100.0) fL RDW 18.7 H (11.5-15.5) % Neutrophils # 10.5 H (1.3-7.7) k/uL Lymphocytes # 0.7 L (1.0-4.8) k/uL Macrocytosis Marked A PT (9.0-12.0) sec INR (<1.2) APTT (22.0-30.0) sec Chloride (98-107) mmol/L Carbon Dioxide (22-30) mmol/L BUN (7-17) mg/dL Creatinine (0.52-1.04) mg/dL Glucose (74-99) mg/dL Calcium (8.4-10.2) mg/dL Total Bilirubin (0.2-1.3) mg/dL AST (14-36) U/L ALT (9-52) U/L Alkaline Phosphatase (38-126) U/L Total Protein (6.3-8.2) g/dL Albumin (3.5-5.0) g/dL Lipase (23-300) U/L Assessment and Plan Assessment: Impression: 1 acute GI bleeding, likely small bowel source considering that EGD and colonos copy were negative. 2 abnormal liver enzymes, GI consultation was initiated to address her liver en zymes. And to address her GI bleeding. 3 acute kidney injury secondary to hypotension, chel inhibitors and diuretics. 4 hypotension, most likely hypovolemia related, although the patient did not imp rove much with fluids, and she is requiring pressors. Remains on norepinephrine today. 5 morbid obesity 6 mild to moderate pulmonary hypertension 7 chronic cor pulmonale 8 nonspecific pulmonary nodules however the patient will eventually require a dedicated CT of the chest, and a decision would have to be made whether she could tolerate biopsy of the right lower lobe nodule. This could be done on outpatient basis. 9 coronary artery disease and previous AL 10 hyperlipidemia Recommendation: Continue present supportive care measures. Consult gastroenterology Continue IV fluids and titrate norepinephrine to keep mean arterial pressure of 65 or higher. 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 Patient may require dedicated CT of the chest on outpatient basis to evaluate her pulmonary nodules again no burns to proceed to CT of the chest at this point considering her renal functioning and the patient will definitely require contrast media. We'll continue to follow, awaiting input from gastroenterology on the case. Time with Patient: Less than 30
--- NOTE | 2019-06-27 13:27 | P.PN ---
Subjective Progress Note Date: 06/26/19 78 yo F with PMH of CAD, [place], asthma, HTN, HLD who prsents to the hospital complaining of 3 week history of melena and hematochezia. She states she has been passing dark tarry stools regularly and over the past few weeks is now noticing bright blood and blood clots in her stool. She denies dizziness, ligh theadedness, or abdominal pain. She has been noticing increased dyspnea with exertion. She brought this up with her PCP a few days ago and was set up for an outpatient scope but after passing large bloody BM decided to come to the ED. She denies regular caffeine, alcohol, or NSAID use. States last colonoscopy 4-5 years ago and was normal. In the ED her Hgb was 8.5 with elevated LFTs and trop 0.065. 06/24. She is s/p EGD yesterday, colonoscopy scheduled today. Her EGD showed some esophagitis. She denies any further rectal bleeding, chest pain, or shortness of breath. 06/25/2019 Patient doesn't have any more GI bleed clinically. Patient will be started on diet. Patient blood pressure is low patient on hydrochlorothiazide and losartan combination pill which will be discontinued patient also has acute renal failure with creatinine going up to 1.7. Patient will continue on IV fluids and will recheck the basic metabolic profile tomorrow, kidney function expected to improve with his continuation of this medication and with improvement of blood pressure. 06/27/2019 Patient blood pressure was low because of which patient was transferred to ICU overnight was on the IV norepinephrine although patient is asymptomatic. Patient has hypovolemic shock and blood pressure medications were discontinued. Creatinine did improve with IV fluids. Constitutional: Denied any fatigue denied any fever. Cardio vascular: denied any chest pain, palpitations Gastrointestinal denied any nausea vomiting Pulmonary: Denied any shortness of breath cough Neurologic denied any new focal deficits All inpatient medications were reviewed and appropriate changes in these medications as dictated in the interval history and assessment and plan. Objective - Vital Signs Vital signs: Vital Signs Temp 98 F 06/27/19 04:00 Pulse 67 06/27/19 13:00 Resp 23 06/27/19 13:00 BP 86/39 06/27/19 13:00 Pulse Ox 94 L 06/27/19 13:00 Intake & Output 1106/27/19 06/27/19 18:59 06:59 18:59 Intake Total 3008.819 1855.218 712.072 Output Total 1202 475 850 Balance 8516.558 5500.218 -137.928 Weight 131.9 kg Intake: IV 1500 1200 600 Sodium Chloride 0.9% 1, 1000 1200 600 000 ml @ 100 mls/hr IV . Q10H [facility]WIN Rx#:[id number] Sodium Chloride 0.9% 500 500 ml 500 ml @ 999 mls/hr IV .Q31M ONE Rx#:[id number] Intake, IV Titration 248.819 655.218 112.072 Amount Norepinephrine 4 mg In 248.819 655.218 112.072 Sodium Chloride 0.9% 250 ml @ 0.05 MCG/KG/MIN 24. 346 mls/hr IV .[id number] EDWIN Rx#:[id number] Oral 1260 Output: Urine 1200 475 850 Stool 2 Other: Voiding Method Bedside Commode Bedside Commode Bedside Commode # Voids 0 0 # Bowel Movements 1 1 1 - Exam PHYSICAL EXAMINATION: GENERAL: The patient is alert and oriented x3, not in any acute distress. Well developed, well nourished. HEENT: Pupils are round and equally reacting to light. EOMI. No scleral icterus. No conjunctival pallor. Normocephalic, atraumatic. No pharyngeal erythema. No thyromegaly. CARDIOVASCULAR: S1 and S2 present. No rubs, or gallops. Systolic murmur and diuretic area as well as tricuspid area may be a loud P2 PULMONARY: Chest is clear to auscultation, no wheezing or crackles. ABDOMEN: Soft, nontender, nondistended, normoactive bowel sounds. No palpable organomegaly. MUSCULOSKELETAL: No joint swelling or deformity. EXTREMITIES: No cyanosis, clubbing, or pedal edema. NEUROLOGICAL: Gross neurological examination did not reveal any focal deficits. SKIN: No rashes. - Labs CBC & Chem 7: 06/27/19 04:31 06/27/19 04:28 Labs: Abnormal Lab Results - Last 24 Hours (Table) 06/27/19 06/27/19 06/27/19 Range/Units 04:28 04:28 04:31 WBC 12.3 H (3.8-10.6) k/uL RBC 2.42 L (3.80-5.40) m/uL Hgb 8.2 L (11.4-16.0) gm/dL Hct 26.1 L (34.0-46.0) % MCV 107.7 H (80.0-100.0) fL RDW 18.7 H (11.5-15.5) % Neutrophils # 10.5 H (1.3-7.7) k/uL Lymphocytes # 0.7 L (1.0-4.8) k/uL Macrocytosis Marked A Chloride 111 H (98-107) mmol/L Carbon Dioxide 17 L (22-30) mmol/L BUN 50 H (7-17) mg/dL Creatinine 1.16 H (0.52-1.04) mg/dL Glucose 111 H (74-99) mg/dL Calcium 7.6 L (8.4-10.2) mg/dL Total Bilirubin 6.1 H (0.2-1.3) mg/dL AST 630 H (14-36) U/L ALT 169 H (9-52) U/L Alkaline Phosphatase 257 H (38-126) U/L Total Protein 5.6 L (6.3-8.2) g/dL Albumin 2.7 L (3.5-5.0) g/dL Lipase 462 H (23-300) U/L Assessment and Plan Plan: -Acute GI bleed: Improved at this time. Continue with Protonix patient underwent the upper GI endoscopy and coloscopy which is significant for mild esophagitis. Patient appears to have upper GI bleed. Presently doesn't have any more bleed. -Hypovolemic shock: Patient is on norepinephrine weaning off norepinephrine, patient is off and hip density was. Patient is receiving IV fluids blood pressure is improving 2-acute renal failure secondary to hypotension and the losartan along with hydrochlorothiazide and improving kidney function -Coronary artery disease -Possible demand ischemia -Hyperlipidemia -Hypertension and presently hypotensive holding off on antidepressant medications.
[2019-06-27] MEDS: CITALOPRAM HYDROBROMIDE 20 MG TAB PO SCH (20:03)
[2019-06-27] MEDS: ATORVASTATIN 10 MG TAB PO SCH (20:03)
[2019-06-28 04:50] LABS: Anisocytosis Slight; Basophils % (A) 0 %; Eosinophils # (A) 0.1 k/uL (0-0.7); Eosinophils % (A) 2 %; HGB 7.9 gm/dL (11.4-16.0); Hypochromasia Marked; Lymphocytes # (A) 0.7 k/uL (1.0-4.8); Lymphocytes % (A) 8 %; MCHC 31.6 g/dL (31.0-37.0); MCV 107.4 fL (80.0-100.0); Macrocytosis Marked; Mean Platelet Volume 5.8; Monocytes # (A) 0.5 k/uL (0-1.0); Monocytes % (A) 5 %; Neutrophils # (A) 7.8 k/uL (1.3-7.7); Neutrophils % (A) 84 %; Platelet Count 268 k/uL (150-450); RBC 2.33 m/uL (3.80-5.40); RDW 18.1 % (11.5-15.5); WBC 9.2 k/uL (3.8-10.6)
[2019-06-28 05:03] LABS: Albumin 2.7 g/dL (3.5-5.0); Calcium 7.7 mg/dL (8.4-10.2); Potassium 3.8 mmol/L (3.5-5.1); Total Bilirubin 5.9 mg/dL (0.2-1.3); Total Protein 5.6 g/dL (6.3-8.2)
[2019-06-28] MEDS: LEVOTHYROXINE 112 MCG TAB PO SCH (06:19)
[2019-06-28] MEDS ORDERED: POTASSIUM CHLORIDE ER 20 MEQ TAB.ER PO SCH (07:00)
[2019-06-28] MEDS: PANTOPRAZOLE 40 MG/10 ML VIAL IV SCH ×2 (08:19→20:23)
--- NOTE | 2019-06-28 10:02 | P.CONS ---
History of Present Illness - Reason for Consult Consult date: 06/27/19 Elevated liver enzymes Requesting physician: Ana Maria Atkinson - Chief Complaint GI bleed - History of Present Illness 78-year-old female who presented to the hospital for evaluation of GI bleed. Prior medical history significant for asthma, hypertension, anemia, coronary artery disease and diabetes mellitus. The patient had been passing dark tarry stool as well as some red blood and clots prior to presentation. She continues to report passing some dark stool. Hemoglobin on admission was 8.5 with patient noted to have elevation in her liver enzymes. The patient was taken for endoscopic evaluation with EGD and colonoscopy by the surgical service with findings of diverticulosis and esophagitis. Liver enzymes remained elevated to gastroenterology was consult dated for further evaluation. Liver and significant for total bilirubin 6.1, alkaline phosphatase 297, AST 630 and ALT of 169. Patient had computed tomography scan of the chest and abdomen with find ings of these studies, patchy density within the liver, bilateral pulmonary nodules and wall thickening of the ascending colon. Patient denies any prior history of liver disease, does report an ultrasound ordered an outpatient setting after blood work was performed. No history of hepatitis. No excessive alcohol use as the patient does not drink. No blood products in the past. No new medications or antibiotics in the last 6 months. Review of Systems REVIEW OF SYSTEMS: CONSTITUTIONAL: Denies any fevers, chills, weight change or fatigue. CARDIOVASCULAR: Denies any chest pain, palpitations high or low blood pressures RESPIRATORY: Denies any shortness of breath, hemoptysis or cough. GENITOURINARY: No dysuria or hematuria. MUSCULOSKELETAL: No weakness reported. SKIN: Denies any new rashes or lesions, jaundice or pallor. PSYCHIATRIC: Denies any depression or anxiety. NEUROLOGY: Denies headache, denies any new focal deficits. EARS/NOSE/THROAT: No recent hearing change, congestion, nasal discharge or sore throat. EYES: No pain in eyes, discharge or change in vision. GASTROINTESTINAL: As per HPI. Past Medical History Past Medical History: Asthma, Coronary Artery Disease (CAD), Cancer, Diabetes Mellitus, Hyperlipidemia, Hypertension, Myocardial Infarction (HI), Thyroid Disorder Additional Past Medical History / Comment(s): HI: 1984; CA: uterus Last Myocardial Infarction Date:: 1984 History of Any Multi-Drug Resistant Organisms: None Reported Past Surgical History: Cholecystectomy, Hysterectomy, Orthopedic Surgery Additional Past Surgical History / Comment(s): Right knee arthroplasty, hysterectomy in 2014 for uterine cancer and previous history of colonoscopy Past Anesthesia/Blood Transfusion Reactions: No Reported Reaction Smoking Status: Former smoker - Past Family History Mother Family Medical History: No Reported History, Dementia Additional Family Medical History / Comment(s): "94 & very healthy" Father Family Medical History: Cancer, Coronary Artery Disease (CAD), CVA/TIA Additional Family Medical History / Comment(s): "passed when 87" "first stoke wwhen 49"; CA: skin; nerve issues due to the war Medications and Allergies Home Medications Medication Instructions Recorded Confirmed Type Aspirin 325 mg PO HS 12/13/15 06/22/19 History Cetirizine HCl [Zyrtec] 10 mg PO DAILY 12/13/15 06/22/19 History Levothyroxine Sodium [Synthroid] 224 mcg PO QAM 12/13/15 06/22/19 History Losartan/Hydrochlorothiazide 1 tab PO DAILY 12/13/15 06/22/19 History [Losartan-Hctz 100-25 mg Tab] Multivitamins, Thera [Multivitamin] 1 tab PO QAM 12/13/15 06/22/19 History Atorvastatin [Lipitor] 10 mg PO HS 06/22/19 06/22/19 History Citalopram Hydrobromide [CeleXA] 20 mg PO HS 06/22/19 06/22/19 History Cyanocobalamin (Vitamin B-12) 5,000 mcg PO DAILY 06/22/19 06/22/19 History [Vitamin B-12] L.acidoph,Paracasei, B.lactis 1 cap PO DAILY 06/22/19 06/22/19 History [Probiotic] Magnesium Oxide 400 mg PO DAILY 06/22/19 06/22/19 History Potassium Gluconate 99 mg PO DAILY 06/22/19 06/22/19 History Allergies Allergy/AdvReac Type Severity Reaction Status Date / Time pesticide Allergy Dyspnea Verified 06/22/19 11:57 Physical Exam Vitals: Vital Signs Temp Pulse Resp BP Pulse Ox 06/27/19 22:30 69 18 105/48 94 L 06/27/19 22:15 84 16 105/48 96 06/27/19 22:00 63 13 108/46 96 06/27/19 21:45 64 13 82/37 96 06/27/19 21:30 61 12 97/50 96 06/27/19 21:15 62 13 111/52 96 06/27/19 21:00 71 21 102/48 94 L 06/27/19 20:45 68 20 98/55 96 06/27/19 20:30 68 18 102/42 96 06/27/19 20:15 68 16 105/46 96 06/27/19 20:00 98.7 F 73 16 108/47 91 L 06/27/19 19:45 70 19 100/46 93 L 06/27/19 19:30 68 19 112/89 94 L 06/27/19 19:15 78 26 H 107/52 93 L 06/27/19 19:00 67 15 112/52 94 L 06/27/19 18:45 70 18 109/78 93 L 06/27/19 18:30 67 16 109/78 93 L 06/27/19 18:15 67 21 109/78 97 06/27/19 18:00 71 19 88/40 95 06/27/19 17:00 65 15 88/40 93 L 06/27/19 16:00 66 16 92/44 94 L 06/27/19 15:30 63 17 91/43 93 L 06/27/19 15:00 68 20 91/43 94 L 06/27/19 14:30 65 18 80/51 93 L 06/27/19 14:00 67 19 86/42 93 L 06/27/19 13:30 68 18 93/39 93 L 06/27/19 13:00 67 23 86/39 94 L 06/27/19 12:15 64 20 100/45 93 L 06/27/19 12:00 65 16 99/40 95 06/27/19 11:00 61 81/37 96 06/27/19 10:30 64 12 92/42 96 06/27/19 10:15 64 15 96/46 97 06/27/19 10:00 68 15 94/42 96 06/27/19 09:45 66 13 103/45 96 06/27/19 09:30 66 16 96/47 96 06/27/19 09:15 66 20 93/58 97 06/27/19 09:00 68 13 105/45 96 06/27/19 08:30 65 13 95/82 96 06/27/19 08:00 70 16 101/35 97 06/27/19 07:45 70 18 91/66 97 06/27/19 07:30 70 12 85/36 97 06/27/19 07:15 69 14 94/53 96 06/27/19 07:00 72 14 115/93 96 06/27/19 06:45 80 15 100/46 94 L 06/27/19 06:30 73 18 95/40 96 06/27/19 06:15 71 13 97/55 96 06/27/19 06:00 71 18 95/65 96 06/27/19 05:45 69 14 96/54 96 06/27/19 05:30 70 14 101/47 95 06/27/19 05:15 75 16 100/66 96 06/27/19 05:00 74 14 95/52 94 L 06/27/19 04:45 100 13 97/53 95 06/27/19 04:30 120 H 16 95/63 95 06/27/19 04:15 100 16 111/85 94 L 06/27/19 04:00 98 F 115 H 16 122/85 94 L 06/27/19 03:45 96 13 96/48 94 L 06/27/19 03:30 111 H 18 97/49 94 L 06/27/19 03:15 100 14 107/46 95 06/27/19 03:00 76 15 129/67 99 06/27/19 02:45 71 13 115/70 95 06/27/19 02:30 68 17 123/55 95 06/27/19 02:15 67 13 124/54 96 06/27/19 02:00 69 18 110/50 95 06/27/19 01:45 70 14 122/57 95 06/27/19 01:30 70 14 125/59 95 06/27/19 01:15 71 16 124/61 95 06/27/19 01:00 80 15 99/55 94 L 06/27/19 00:45 71 14 113/45 95 06/27/19 00:30 71 14 110/42 95 06/27/19 00:15 70 14 105/43 95 06/27/19 00:00 97.9 F 70 13 106/41 95 Intake and Output 06/27/19 06/27/19 06/28/19 14:59 22:59 06:59 Intake Total 191.097 4495.269 Output Total 1050 600 Balance -191.671 609.269 Intake: IV 700 700 Sodium Chloride 0.9% 1, 700 700 000 ml @ 100 mls/hr IV . Q10H [facility] Rx#:[id number] Intake, IV Titration 158.329 89.269 Amount Norepinephrine 4 mg In 158.329 89.269 Sodium Chloride 0.9% 250 ml @ 0.05 MCG/KG/MIN 24. 346 mls/hr IV .[id number] [facility] Rx#:[id number] Oral 420 Output: Urine 1050 400 Stool 200 Other: Voiding Method Bedside Commode Bedside Commode # Bowel Movements 1 On physical examination, patient appears comfortable in no apparent distress. HEAD: Normocephalic, atraumatic. EYES: No scleral icterus. No conjunctival injection. MOUTH: No lesions, tongue midline. NECK: Trachea midline, no gross abnormalities. CHEST: Decreased air entry in all lung wheeler. HEART: S1-S2 appreciated. ABDOMEN: Soft, obese. Bowel sounds are positive. No organomegaly. No guarding or rigidity. EXTREMITIES: No pedal edema. SKIN: No rashes, no jaundice. NEUROLOGIC: Alert and oriented x3. No focal deficits. Results CBC & Chem 7: 06/28/19 04:23 06/28/19 04:18 Labs: Abnormal Lab Results - Last 24 Hours (Table) 06/27/19 06/27/19 06/27/19 Range/Units 04:28 04:28 04:31 WBC 12.3 H (3.8-10.6) k/uL RBC 2.42 L (3.80-5.40) m/uL Hgb 8.2 L (11.4-16.0) gm/dL Hct 26.1 L (34.0-46.0) % MCV 107.7 H (80.0-100.0) fL RDW 18.7 H (11.5-15.5) % Neutrophils # 10.5 H (1.3-7.7) k/uL Lymphocytes # 0.7 L (1.0-4.8) k/uL Macrocytosis Marked A Chloride 111 H (98-107) mmol/L Carbon Dioxide 17 L (22-30) mmol/L BUN 50 H (7-17) mg/dL Creatinine 1.16 H (0.52-1.04) mg/dL Glucose 111 H (74-99) mg/dL Calcium 7.6 L (8.4-10.2) mg/dL Total Bilirubin 6.1 H (0.2-1.3) mg/dL AST 630 H (14-36) U/L ALT 169 H (9-52) U/L Alkaline Phosphatase 257 H (38-126) U/L Total Protein 5.6 L (6.3-8.2) g/dL Albumin 2.7 L (3.5-5.0) g/dL Lipase 462 H (23-300) U/L CT scan - abdomen: report reviewed (computed tomography scan of the chest and abdomen with findings of these studies, patchy density within the liver, bilateral pulmonary nodules and wall thickening of the ascending colon.) Assessment and Plan (1) Elevated LFTs Narrative/Plan: 78-year-old female who presents for GI bleeding. Patient found incidentally to have elevation in her liver enzymes of unknown etiology. Hepatitis panel negative. There were findings of ascites and a patchy density within the liver which was a limited study of the abdomen due to computed tomography scan without contrast. Liver enzymes significant for total bilirubin 6.1, alkaline phosphatase 257, AST 630 and ALT 169. Patient denies any alcohol use, or other high risk behavior. No prior history of elevated liver enzymes. This time plan is for full serologic workup as well as paracentesis with fluid analysis for further evaluation of the elevated liver enzymes. Unknown etiology with possibility of nonalcoholic steatohepatitis leading to cirrhosis given the patient's history of metabolic syndrome, with plan to rule out other intrinsic liver disease. Current Visit: Yes Status: Acute Code(s): R94.5 - ABNORMAL RESULTS OF LIVER FUNCTION STUDIES SNOMED Code(s): 905773994 (2) Acute GI bleeding Current Visit: Yes Status: Acute Code(s): K92.2 - GASTROINTESTINAL HEMORRHAGE, UNSPECIFIED SNOMED Code(s): 11773533 Plan: Supportive care Okay for diet Full liver serologies ordered Continue monitor hemoglobin and hematocrit and transfuse as needed Paracentesis with fluid studies ordered Avoid hepatotoxic medications AFP and CA 199 ordered Patient would likely benefit from either MRI abdomen or CT triple phase for further characterization of liver parenchyma, imaging to be determined based on continued improvement in creatinine Thank you for allowing us to participate in the care of the patient we will continue to follow
[2019-06-28] MEDS: SODIUM CHLORIDE 0.9% 1,000 ML IV SCH ×2 (10:50→20:23)
--- NOTE | 2019-06-28 12:57 | P.PN ---
Subjective Progress Note Date: 06/28/19 Principal diagnosis: Acute GI bleeding This 78-year-old. Patient got transferred to the intensive care yesterday because of hypotension. This patient was hospitalized because of GI bleeding. She was passing tarry stool. She had also noted some bright red blood with passing of clots in her stool. She denied having any dizziness or lightheadedness or abdominal pain. She also noticed some increased shortness of breath. She went to her primary care physician but after passing a large BM that was bloody she came into the emergency department on 06/23/2019. No history of alcohol use. No intake of any nonsteroidal anti-inflammatory medication. She had previous colonoscopy was done around 5 years which was normal. Hemoglobin at time of admission was 8.5. She has also abnormal LFTs with elevated bilirubin and a troponin was 0.065. The patient underwent EGD and colonoscopy during this current admission which did not reveal any significant abnormalities. It showed diverticulosis and esophagitis. The patient subsequently did not require any blood transfusion. She was started on diet. Her CHEL inhibitor and hydrochlorothiazide were discontinued. Nevertheless, she went to an acute kidney injury in the creatinine came up to 1.7. She was started on IV fluids and yesterday after being hypotensive she got chest to the intensive care unit where she was given additional 2 L of normal saline. Subsequently she was placed on pressors and currently due for this clinic at 0.02 g per KG per minute. Urine output is no order of 400 mL since she is been to our intensive care unit. Creatinine today is slightly improved since down to 1.6. However, her LFTs are abnormal. As noted today, the AST is 155 and AST is 668 with a bilirubin of 4.8. Hepatitis profile is been negative. No further investigation was not regarding this abnormal LFTs and lives do not see any comments made by gastroenterology. She is awake and alert. Echo of the heart was done and it showed an ejection fraction of 5-60% and there is moderate to severe enlargement of the a with right-sided systolic pressure of 44 mmHg. Currently she is receiving IV fluids with 100 mL an hour of normal saline. No fever. No chills. No nausea. No vomiting. No emesis. Current hemoglobin is at 7.9. Platelet count is at 219. No anticoagulants for now. Serum bicarb is down to 18 Patient was reevaluated today on 06/27/2019, remains in the ICU, presently on a small dose of norepinephrine, her dose is 0.05 mcg/kg/m. Patient received significant amount of fluids for her hypotension, and her blood pressure remains marginal. Hemoglobin today is 8.2. Her basic metabolic profile is relatively normal except for low bicarb of 17 BUN is 50 and creatinine is improving down to 1.16. 2 days ago, her hemoglobin was as high as 1.89. Lipase was noted to be elevated at 717 and amylase is 68. Patient continues to have intermittent episodes of black tarry stools, her EGD and her colonoscopy were both nondiagnostic. Hence I have recommended GI evaluation, patient may actually require a capsule endoscopy. This will be decided upon by gastroenterology. In the meantime we'll continue IV fluids, and continued to titrate the norepinephrine for her low blood pressure. Liver enzymes were noted to be elevated, her ALT is 169 AST is 630 and her total bilirubin is 7.6. CT of the abdomen and pelvis were noted, multiple nonspecific pulmonary nodules were noted, and there is a masslike opacity in the right posterior lung above the diaphragm measuring 2.61.8 cm, this was definitely need to be evaluated on outpatient basis, and decide whether the patient will require biopsy however at this point we need to address her GI issues mostly. And the patient will definitely need a dedicated CT of the chest with contrast on outpatient basis once her renal functioning improves. The patient did have some ascites, however I doubt if she has significant ascites to warrant paracentesis at this point, this will be addressed by GI consultation. Echocardiogram done on this admission was basically unremarkable. Patient remains on IV fluids at 100 mL/h, but still requiring pressors. Peña catheter could not be placed, hence exact assessment of her fluid balance is not very accurate. Patient was reevaluated today on 06/28/2019, no further episodes of GI bleeding, hemoglobin remains stable, patient did not require any blood transfusion since admission. Patient is off norepinephrine, blood pressure seems to be stabilizing. She was seen by gastroenterology on consultation, and they seem to be addressing her GI bleeding as well as an incidental abnormal liver enzymes. Her hepatitis panel has been negative. And they are recommending paracentesis and fluid analysis for further evaluation of her elevated liver enzymes. They may even recommended a liver biopsy if no specific diagnosis is made from the ascites fluid. Pulmonary-morillo, the patient has no active pulmonary symptoms, she does have pulmonary nodules which would have to be addressed on an outpatient basis. Presently no cough no wheezing no shortness of breath. WBC count today is 9.2 hemoglobin is 7.90. renal profile is improving with BUN is 40 and creatinine 1.01. I went ahead and discontinued Lipitor. Objective - Vital Signs Vital signs: Vital Signs Temp 97.7 F 06/28/19 12:00 Pulse 68 06/28/19 12:00 Resp 22 06/28/19 12:00 BP 85/43 06/28/19 12:00 Pulse Ox 98 06/28/19 12:00 Intake & Output 06/27/19 06/28/19 06/28/19 18:59 06:59 18:59 Intake Total 0644.179 7474.915 400 Output Total 1250 1020 500 Balance -91.671 1186.915 -100 Weight 141.5 kg Intake: IV 1000 1200 400 Sodium Chloride 0.9% 1, 1000 1200 400 000 ml @ 100 mls/hr IV . Q10H [facility] Rx#:[id number] Intake, IV Titration 158.329 266.915 Amount Norepinephrine 4 mg In 158.329 266.915 Sodium Chloride 0.9% 250 ml @ 0.05 MCG/KG/MIN 24. 346 mls/hr IV .[id number] [facility] Rx#:[id number] Oral 740 Output: Urine 1250 380 200 Stool 200 Urine/Stool Mix 440 300 Other: Voiding Method Bedside Commode Bedside Commode Bedside Commode # Bowel Movements 1 1 - Exam Physical Exam: Revealed a 78-year-old female in no distress. Head: Atraumatic, normocephalic. HEENT:[Neck is supple.] [No neck masses.] [No thyromegaly.] [No JVD.] Chest: [Clear throughout, no crackles, no rhonchi, no wheezes.] Cardiac Exam: [Normal S1 and S2, no S3 gallop, no murmur.] Abdomen: [Obese Soft, nontender, no megaly, no rebound, no guarding, normal bowel sounds.] Possible ascites and significant abdominal wall edema noted. Extremities: [No clubbing, 2+ bipedal edema, no cyanosis.] Neurological Exam: [No focal neurologic deficit.] Alert and oriented 3. Psychiatric: Normal mood affect and normal mental status examination. Skin: No rashes. Musculoskeletal: No joint swelling or deformity, no limitation in range of motio n. Lymphatics: No lymphadenopathy. - Labs CBC & Chem 7: 06/28/19 04:23 06/28/19 04:18 Labs: Abnormal Lab Results - Last 24 Hours (Table) 06/28/19 06/28/19 Range/Units 04:18 04:23 RBC 2.33 L (3.80-5.40) m/uL Hgb 7.9 L (11.4-16.0) gm/dL Hct 25.0 L (34.0-46.0) % MCV 107.4 H (80.0-100.0) fL RDW 18.1 H (11.5-15.5) % Neutrophils # 7.8 H (1.3-7.7) k/uL Lymphocytes # 0.7 L (1.0-4.8) k/uL Macrocytosis Marked A Chloride 112 H (98-107) mmol/L Carbon Dioxide 19 L (22-30) mmol/L BUN 40 H (7-17) mg/dL Glucose 105 H (74-99) mg/dL Calcium 7.7 L (8.4-10.2) mg/dL Total Bilirubin 5.9 H (0.2-1.3) mg/dL AST 522 H (14-36) U/L ALT 157 H (9-52) U/L Alkaline Phosphatase 274 H (38-126) U/L Total Protein 5.6 L (6.3-8.2) g/dL Albumin 2.7 L (3.5-5.0) g/dL Assessment and Plan Assessment: Impression: 1 acute GI bleeding, likely small bowel source considering that EGD and colonosc opy were negative. 2 abnormal liver enzymes, could be secondary to statin. Drug induced hepatitis. Hence Lipitor was discontinued. Workup for her hepatitis is in progress. 3 acute kidney injury secondary to hypotension, chel inhibitors and diuretics. 4 hypotension, most likely hypovolemia related, resolved, patient is off norepinephrine. 5 morbid obesity 6 mild to moderate pulmonary hypertension 7 chronic cor pulmonale 8 nonspecific pulmonary nodules however the patient will eventually require a dedicated CT of the chest, and a decision would have to be made whether she could tolerate biopsy of the right lower lobe nodule. This could be done on outpatient basis. 9 coronary artery disease and previous [place] 10 hyperlipidemia Recommendation: Continue present supportive care measures. Continue IV fluids discontinued norepinephrine. GI consultation was noted. Patient may undergo paracentesis.. 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 Patient may require dedicated CT of the chest on outpatient basis to evaluate her pulmonary nodules again no burns to proceed to CT of the chest at this point considering her renal functioning and the patient will definitely require co ntrast media. We'll continue to follow, may transfer the patient later today out of the ICU to a regular medical floor. Time with Patient: Less than 30
[2019-06-28 13:28] VITALS: BMI 56.1
--- NOTE | 2019-06-28 13:57 | P.PN ---
Subjective Progress Note Date: 06/28/19 CHIEF COMPLAINT: GI bleed HISTORY OF PRESENT ILLNESS: 78-year-old female who is status post EGD and colonoscopy revealing gastritis, esophagitis, and diverticulosis. Patient has had no further episodes of rectal bleeding. Bowel movements have been brown in color. Hemoglobin has remained stable. 7.9 this morning. PHYSICAL EXAM: VITAL SIGNS: Reviewed. GENERAL: Well-developed in no acute distress. HEENT: No sclera icterus. Extraocular movements grossly intact. Moist buccal mucosa. Head is atraumatic, normocephalic. ABDOMEN: Soft. Nondistended. Nontender. NEUROLOGIC: Alert and oriented. Cranial nerves II through XII grossly intact. ASSESSMENT: 1. GI bleed 2. Hyperbilirubinemia 3. Transaminitis 4. History of cholecystectomy PLAN: GI on consult for elevated LFTs Continue diet as tolerated Monitor hemoglobin No further surgical intervention recommended at this time We will continue to follow on an as-needed basis. Please call with any questions or concerns Nurse practitioner note has been reviewed by physician. Signing provider agrees with the documented findings, assessment, and plan of care. Objective - Vital Signs Vital signs: Vital Signs Temp 97.7 F 06/28/19 12:00 Pulse 68 06/28/19 12:00 Resp 22 06/28/19 12:00 BP 85/43 06/28/19 12:00 Pulse Ox 98 06/28/19 12:00 Intake & Output 06/27/19 06/28/19 06/28/19 18:59 06:59 18:59 Intake Total 4227.506 4991.915 600 Output Total 1250 1020 500 Balance -91.671 1186.915 100 Weight 141.5 kg 141.5 kg Intake: IV 1000 1200 600 Sodium Chloride 0.9% 1, 1000 1200 600 000 ml @ 100 mls/hr IV . Q10H [facility] Rx#:[id number] Intake, IV Titration 158.329 266.915 Amount Norepinephrine 4 mg In 158.329 266.915 Sodium Chloride 0.9% 250 ml @ 0.05 MCG/KG/MIN 24. 346 mls/hr IV .[id number] [facility] Rx#:[id number] Oral 740 Output: Urine 1250 380 200 Stool 200 Urine/Stool Mix 440 300 Other: Voiding Method Bedside Commode Bedside Commode Bedside Commode # Bowel Movements 1 1 - Labs CBC & Chem 7: 06/28/19 04:23 06/28/19 04:18 Labs: Abnormal Lab Results - Last 24 Hours (Table) 06/28/19 06/28/19 Range/Units 04:18 04:23 RBC 2.33 L (3.80-5.40) m/uL Hgb 7.9 L (11.4-16.0) gm/dL Hct 25.0 L (34.0-46.0) % MCV 107.4 H (80.0-100.0) fL RDW 18.1 H (11.5-15.5) % Neutrophils # 7.8 H (1.3-7.7) k/uL Lymphocytes # 0.7 L (1.0-4.8) k/uL Macrocytosis Marked A Chloride 112 H (98-107) mmol/L Carbon Dioxide 19 L (22-30) mmol/L BUN 40 H (7-17) mg/dL Glucose 105 H (74-99) mg/dL Calcium 7.7 L (8.4-10.2) mg/dL Total Bilirubin 5.9 H (0.2-1.3) mg/dL AST 522 H (14-36) U/L ALT 157 H (9-52) U/L Alkaline Phosphatase 274 H (38-126) U/L Total Protein 5.6 L (6.3-8.2) g/dL Albumin 2.7 L (3.5-5.0) g/dL
[2019-06-28 17:00] LABS: Appearance,BF Hazy; Color,BF Yellow; Nucleated Cells, Body Fluid 55 /uL; RBC, Body Fluid 885 /uL
[2019-06-28 17:25] LABS: % Iron Saturation 6.06 (12.00-45.00); Ferritin 121.3 ng/mL (10.0-291.0)
[2019-06-28 17:26] LABS: Alpha Fetoprotein, Tumor Mkr 881.4 ng/mL (0.0-7.9)
[2019-06-28 17:40] LABS: Mononuclear WBC,Body Fluid 90 %; Polynuclear WBC,Body Fluid 10 %; Total Cells Counted,Body Fluid 100
[2019-06-28 17:45] LABS: Cancer Antigen 19-9 29.9 U/mL (0.0-34.9)
[2019-06-28] MEDS: CITALOPRAM HYDROBROMIDE 20 MG TAB PO SCH (21:34)
[2019-06-28] MEDS: NOREPINEPHRINE 4 MG in SODIUM CHLORIDE 0.9% 250 ML IV SCH (22:59)
--- NOTE | 2019-06-28 23:53 | P.PN ---
Subjective Progress Note Date: 06/28/19 Principal diagnosis: Elevated liver enzymes Lying in bed, tolerating diet. no further signs or symptoms of GI bleed. Objective - Vital Signs Vital signs: Vital Signs Temp 97.7 F 06/28/19 12:00 Pulse 71 06/28/19 15:15 Resp 17 06/28/19 15:15 BP 102/48 06/28/19 15:15 Pulse Ox 96 06/28/19 15:15 Intake & Output 06/27/19 06/28/19 06/28/19 18:59 06:59 18:59 Intake Total 6717.402 7080.915 800 Output Total 1250 1020 700 Balance -91.671 1186.915 100 Weight 141.5 kg 141.5 kg Intake: IV 1000 1200 800 Sodium Chloride 0.9% 1, 1000 1200 800 000 ml @ 100 mls/hr IV . Q10H [facility] Rx#:[id number] Intake, IV Titration 158.329 266.915 0 Amount Norepinephrine 4 mg In 158.329 266.915 0 Sodium Chloride 0.9% 250 ml @ 0.05 MCG/KG/MIN 24. 346 mls/hr IV .[id number] [facility] Rx#:[id number] Oral 740 Output: Urine 1250 380 400 Stool 200 Urine/Stool Mix 440 300 Other: Voiding Method Bedside Commode Bedside Commode Bedside Commode # Bowel Movements 1 1 1 - Exam On physical examination, patient appears comfortable in no apparent distress. HEAD: Normocephalic, atraumatic. EYES: No scleral icterus. No conjunctival injection. MOUTH: No lesions, tongue midline. NECK: Trachea midline, no gross abnormalities. CHEST: Decreased air entry in all lung wheeler. HEART: S1-S2 appreciated. ABDOMEN: Soft, obese. Bowel sounds are positive. No organomegaly. No guarding or rigidity. EXTREMITIES: No pedal edema. SKIN: No rashes, no jaundice. NEUROLOGIC: Alert and oriented x3. No focal deficits. - Labs CBC & Chem 7: 06/28/19 04:23 06/28/19 04:18 Labs: Abnormal Lab Results - Last 24 Hours (Table) 06/28/19 06/28/19 Range/Units 04:18 04:23 RBC 2.33 L (3.80-5.40) m/uL Hgb 7.9 L (11.4-16.0) gm/dL Hct 25.0 L (34.0-46.0) % MCV 107.4 H (80.0-100.0) fL RDW 18.1 H (11.5-15.5) % Neutrophils # 7.8 H (1.3-7.7) k/uL Lymphocytes # 0.7 L (1.0-4.8) k/uL Macrocytosis Marked A Chloride 112 H (98-107) mmol/L Carbon Dioxide 19 L (22-30) mmol/L BUN 40 H (7-17) mg/dL Glucose 105 H (74-99) mg/dL Calcium 7.7 L (8.4-10.2) mg/dL Total Bilirubin 5.9 H (0.2-1.3) mg/dL AST 522 H (14-36) U/L ALT 157 H (9-52) U/L Alkaline Phosphatase 274 H (38-126) U/L Total Protein 5.6 L (6.3-8.2) g/dL Albumin 2.7 L (3.5-5.0) g/dL Assessment and Plan (1) Elevated LFTs Narrative/Plan: 78-year-old female who presents for GI bleeding. Patient found incidentally to have elevation in her liver enzymes of unknown etiology. Hepatitis panel negative. There were findings of ascites and a patchy density within the liver which was a limited study of the abdomen due to computed tomography scan without contrast. Liver enzymes significant for total bilirubin 6.1, alkaline phosphatase 257, AST 630 and ALT 169 yesterday and stable today. Patient denies any alcohol use, or other high risk behavior. No prior history of elevated liver enzymes. This time plan is for full serologic workup as well as paracentesis with fluid analysis for further evaluation of the elevated liver enzymes. Unknown etiology with possibility of nonalcoholic steatohepatitis leading to cirrhosis given the patient's history of metabolic syndrome, with plan to rule out other intrinsic liver disease. Current Visit: Yes Status: Acute Code(s): R94.5 - ABNORMAL RESULTS OF LIVER FUNCTION STUDIES SNOMED Code(s): 449359775 (2) Acute GI bleeding Current Visit: Yes Status: Acute Code(s): K92.2 - GASTROINTESTINAL HEMORRHAGE, UNSPECIFIED SNOMED Code(s): 96785788 Plan: Supportive care Okay for diet Full liver serologies ordered and pending Continue monitor hemoglobin and hematocrit and transfuse as needed Paracentesis with over 4 L removed, fluid studies pending Avoid hepatotoxic medications AFP markedly elevated and now that Cr has improved will consider either MRI abdomen or CT triple phase for further characterization of liver parenchyma, with consideration for biopsy if focal lesion is seen Thank you for allowing us to participate in the care of the patient we will continue to follow
[2019-06-29 00:52] LABS: Total Protein, Body Fluid 556 mg/dL
[2019-06-29 05:06] LABS: Anisocytosis Slight; Basophils % (A) 0 %; Eosinophils # (A) 0.1 k/uL (0-0.7); Eosinophils % (A) 2 %; HCT 25.6 % (34.0-46.0); Hypochromasia Marked; Lymphocytes # (A) 0.6 k/uL (1.0-4.8); Lymphocytes % (A) 8 %; MCH 33.6 pg (25.0-35.0); MCHC 31.1 g/dL (31.0-37.0); Macrocytosis Marked; Monocytes # (A) 0.4 k/uL (0-1.0); Monocytes % (A) 5 %; Neutrophils % (A) 84 %; Platelet Count 212 k/uL (150-450); Poikilocytosis Slight; RBC 2.37 m/uL (3.80-5.40); RDW 17.8 % (11.5-15.5); WBC 7.2 k/uL (3.8-10.6)
[2019-06-29 05:19] LABS: Calcium 7.7 mg/dL (8.4-10.2); Potassium 4.1 mmol/L (3.5-5.1)
[2019-06-29] MEDS: SODIUM CHLORIDE 0.9% 1,000 ML IV SCH ×2 (06:21→18:42)
[2019-06-29] MEDS: LEVOTHYROXINE 112 MCG TAB PO SCH (06:25)
--- NOTE | 2019-06-29 07:31 | P.PN ---
Subjective Progress Note Date: 06/29/19 Principal diagnosis: Paroxysmal atrial fibrillation This is a pleasant 78-year-old female patient with a past medical history significant for diabetes, hypertension, dyslipidemia was admitted to the hospital with GI bleeding. We consulted initially to see the patient for mildly abnormal troponin which was treated medically. We signed off on the patient at that point. Subsequently we reconsulted to see the patient again because she went into A. fib with RVR. On follow-up with her today, June [id number], the patient continues to be in atrial fibrillation with a heart rate around 110 to 120 beats per minutes. The hemoglobin is marginal. Yesterday she underwent paracentesis. She is not a candidate to receive oral anticoagulation with a history of GI bleeding. The blood pressure has been marginally low. She was started on metoprolol we will continue that at this point and continue monitor the heart rate. The echo revealed normal LV function Objective - Vital Signs Vital signs: Vital Signs Temp 98.1 F 06/29/19 04:00 Pulse 101 H 06/29/19 07:00 Resp 17 06/29/19 07:00 BP 105/82 06/29/19 07:00 Pulse Ox 92 L 06/29/19 07:00 Intake & Output 06/28/19 06/29/19 06/29/19 18:59 06:59 18:59 Intake Total 1000 1362.36 100 Output Total 1100 600 Balance -100 762.36 100 Weight 141.5 kg 142 kg Intake: IV 1000 1200 100 Sodium Chloride 0.9% 1, 1000 1200 100 000 ml @ 100 mls/hr IV . Q10H [facility] Rx#:[id number] Intake, IV Titration 0 42.36 Amount Norepinephrine 4 mg In 0 42.36 Sodium Chloride 0.9% 250 ml @ 0.05 MCG/KG/MIN 24. 346 mls/hr IV .[id number] [facility] Rx#:[id number] Oral 120 Output: Urine 650 600 Stool 150 Urine/Stool Mix 300 Other: Voiding Method Bedside Commode Bedside Commode # Bowel Movements 1 1 - Constitutional General appearance: Present: no acute distress - Respiratory Respiratory: bilateral: diminished - Cardiovascular Rhythm: irregularly irregular Heart sounds: normal: S1, S2 - Labs CBC & Chem 7: 06/29/19 04:25 06/29/19 04:25 Labs: Abnormal Lab Results - Last 24 Hours (Table) 06/28/19 06/28/19 06/29/19 Range/Units 04:18 04:18 04:25 RBC 2.37 L (3.80-5.40) m/uL Hgb 8.0 L (11.4-16.0) gm/dL Hct 25.6 L (34.0-46.0) % MCV 108.0 H (80.0-100.0) fL RDW 17.8 H (11.5-15.5) % Lymphocytes # 0.6 L (1.0-4.8) k/uL Macrocytosis Marked A Chloride (98-107) mmol/L Carbon Dioxide (22-30) mmol/L BUN (7-17) mg/dL Glucose (74-99) mg/dL Calcium (8.4-10.2) mg/dL Iron 18 L (50-170) ug/dL % Saturation 6.06 L (12.00-45.00) Tumor Marker AFP 881.4 H (0.0-7.9) ng/mL 06/29/19 Range/Units 04:25 RBC (3.80-5.40) m/uL Hgb (11.4-16.0) gm/dL Hct (34.0-46.0) % MCV (80.0-100.0) fL RDW (11.5-15.5) % Lymphocytes # (1.0-4.8) k/uL Macrocytosis Chloride 115 H (98-107) mmol/L Carbon Dioxide 17 L (22-30) mmol/L BUN 35 H (7-17) mg/dL Glucose 100 H (74-99) mg/dL Calcium 7.7 L (8.4-10.2) mg/dL Iron (50-170) ug/dL % Saturation (12.00-45.00) Tumor Marker AFP (0.0-7.9) ng/mL Microbiology - Last 24 Hours (Table) 06/28/19 15:46 Gram Stain - Preliminary Ascites Fluid Body Fluid Culture - Preliminary 06/28/19 15:15 Anaerobic Culture - Preliminary Ascites Fluid Assessment and Plan Assessment: Assessment #1 GI bleeding #2 paroxysmal atrial fibrillation #3 mildly elevated troponin Plan #1 continue the current dose of metoprolol #2 continue monitor the heart rate #3 she is not a candidate for anticoagulation #4 follow-up with the patient
[2019-06-29 07:48] LABS: Protein, Total 5.1 g/dL (6.2-8.2)
--- NOTE | 2019-06-29 08:08 | US ---
EXAMINATION TYPE: US paracentesis abd w/image DATE OF EXAM: 06/28/2019 COMPARISON: NONE HISTORY: Ascites. PROCEDURE: Maximal barrier technique was utilized. The skin overlying a suitable pocket of fluid was localized with ultrasound and the overlying skin was prepped and draped. Ultrasound was utilized with sterile technique. Lidocaine was used for local anesthesia and a skin terry made with a scalpel. Catheter was advanced under direct ultrasound guidance into a suitable pocket of fluid and approximately 0.2 liter s of serous fluid were removed. Catheter was withdrawn and hemostasis achieved. There is no immedia te complication; the patient is discharged in stable condition. IMPRESSION: STATUS POST ULTRASOUND GUIDED PARACENTESIS FOR PALLIATION OF ASCITES. THIS PROCEDURE WA S PERFORMED BY THE UNDERSIGNED. Specimen obtained for diagnosis.
[2019-06-29] MEDS: PANTOPRAZOLE 40 MG/10 ML VIAL IV SCH ×2 (08:10→21:43)
[2019-06-29] MEDS ORDERED: METOPROLOL TARTRATE 12.5 MG TAB PO SCH (09:00)
[2019-06-29 09:30] LABS: Albumin, Fluid Source Ascites
[2019-06-29 10:08] LABS: Albumin 2.6 g/dL (3.5-5.0); Bilirubin, Conjugated 1.6 mg/dL (0.0-0.3); Bilirubin, Delta 2.9 mg/dL (0.0-0.2); Bilirubin,Unconjugated 1.5 mg/dL (0.0-1.1); Total Protein 5.6 g/dL (6.3-8.2)
[2019-06-29 11:14] LABS: Ceruloplasmin 36.2 mg/dL (20.0-60.0)
[2019-06-29 11:22] LABS: Liver/Kidney Microsome Antibod 1.5 UNITS (<=20)
--- NOTE | 2019-06-29 12:39 | P.PN ---
Subjective Progress Note Date: 06/29/19 Principal diagnosis: Acute GI bleeding This 78-year-old. Patient got transferred to the intensive care yesterday because of hypotension. This patient was hospitalized because of GI bleeding. She was passing tarry stool. She had also noted some bright red blood with passing of clots in her stool. She denied having any dizziness or lightheadedness or abdominal pain. She also noticed some increased shortness of breath. She went to her primary care physician but after passing a large BM that was bloody she came into the emergency department on 06/23/2019. No history of alcohol use. No intake of any nonsteroidal anti-inflammatory medication. She had previous colonoscopy was done around 5 years which was normal. Hemoglobin at time of admission was 8.5. She has also abnormal LFTs with elevated bilirubin and a troponin was 0.065. The patient underwent EGD and colonoscopy during this current admission which did not reveal any significant abnormalities. It showed diverticulosis and esophagitis. The patient subsequently did not require any blood transfusion. She was started on diet. Her DEE inhibitor and hydrochlorothiazide were discontinued. Nevertheless, she went to an acute kidney injury in the creatinine came up to 1.7. She was started on IV fluids and yesterday after being hypotensive she got chest to the intensive care unit where she was given additional 2 L of normal saline. Subsequently she was placed on pressors and currently due for this clinic at 0.02 g per KG per minute. Urine output is no order of 400 mL since she is been to our intensive care unit. Creatinine today is slightly improved since down to 1.6. However, her LFTs are abnormal. As noted today, the AST is 155 and AST is 668 with a bilirubin of 4.8. Hepatitis profile is been negative. No further investigation was not regarding this abnormal LFTs and lives do not see any comments made by gastroenterology. She is awake and alert. Echo of the heart was done and it showed an ejection fraction of 5-60% and there is moderate to severe enlargement of the a with right-sided systolic pressure of 44 mmHg. Currently she is receiving IV fluids with 100 mL an hour of normal saline. No fever. No chills. No nausea. No vomiting. No emesis. Current hemoglobin is at 7.9. Platelet count is at 219. No anticoagulants for now. Serum bicarb is down to 18 Patient was reevaluated today on 06/27/2019, remains in the ICU, presently on a small dose of norepinephrine, her dose is 0.05 mcg/kg/m. Patient received significant amount of fluids for her hypotension, and her blood pressure remains marginal. Hemoglobin today is 8.2. Her basic metabolic profile is relatively normal except for low bicarb of 17 BUN is 50 and creatinine is improving down to 1.16. 2 days ago, her hemoglobin was as high as 1.89. Lipase was noted to be elevated at 717 and amylase is 68. Patient continues to have intermittent episodes of black tarry stools, her EGD and her colonoscopy were both nondiagnostic. Hence I have recommended GI evaluation, patient may actually require a capsule endoscopy. This will be decided upon by gastroenterology. In the meantime we'll continue IV fluids, and continued to titrate the norepinephrine for her low blood pressure. Liver enzymes were noted to be elevated, her ALT is 169 AST is 630 and her total bilirubin is 7.6. CT of the abdomen and pelvis were noted, multiple nonspecific pulmonary nodules were noted, and there is a masslike opacity in the right posterior lung above the diaphragm measuring 2.61.8 cm, this was definitely need to be evaluated on outpatient basis, and decide whether the patient will require biopsy however at this point we need to address her GI issues mostly. And the patient will definitely need a dedicated CT of the chest with contrast on outpatient basis once her renal functioning improves. The patient did have some ascites, however I doubt if she has significant ascites to warrant paracentesis at this point, this will be addressed by GI consultation. Echocardiogram done on this admission was basically unremarkable. Patient remains on IV fluids at 100 mL/h, but still requiring pressors. Peña catheter could not be placed, hence exact assessment of her fluid balance is not very accurate. Patient was reevaluated today on 06/28/2019, no further episodes of GI bleeding, hemoglobin remains stable, patient did not require any blood transfusion since admission. Patient is off norepinephrine, blood pressure seems to be stabilizing. She was seen by gastroenterology on consultation, and they seem to be addressing her GI bleeding as well as an incidental abnormal liver enzymes. Her hepatitis panel has been negative. And they are recommending paracentesis and fluid analysis for further evaluation of her elevated liver enzymes. They may even recommended a liver biopsy if no specific diagnosis is made from the ascites fluid. Pulmonary-morillo, the patient has no active pulmonary symptoms, she does have pulmonary nodules which would have to be addressed on an outpatient basis. Presently no cough no wheezing no shortness of breath. WBC count today is 9.2 hemoglobin is 7.90. renal profile is improving with BUN is 40 and creatinine 1.01. I went ahead and discontinued Lipitor. Patient was reevaluated today on 06/29/2019, no further episodes of GI bleeding, patient underwent paracentesis yesterday, and only 200 mL of fluid were removed, and sent for different diagnostic studies. Patient remains in atrial fibrillation, and that being addressed by cardiology. Placed on metoprolol, but she cannot tolerate anticoagulation therapy because of her GI bleeding. Labs from the peritoneal fluid are pending. Her WBC count today is 7.2 hemoglobin is 8 lites are normal renal profile is basically back to normal. And a bit reluctant to send the patient for a CT of the chest which eventually needs to be done. But she was made aware that this needs to be done most likely on outpa tient basis. Tumor markers were noted to be abnormal, her alpha-fetoprotein was 884. Otherwise her serology including PABLO antimitochondrial antibody, anti- smooth muscle antibody, liver/microsome antibody negative. [place] 199 antigen was normal. Family today raise some questions about her source of GI bleeding, and I suggested that they direct that question to the microbiology instructor, I believe is most likely from the small bowel. Objective - Vital Signs Vital signs: Vital Signs Temp 97.8 F 06/29/19 08:00 Pulse 58 L 06/29/19 10:00 Resp 20 06/29/19 10:00 BP 115/75 06/29/19 10:00 Pulse Ox 95 06/29/19 10:00 Intake & Output 06/28/19 06/29/19 06/29/19 18:59 06:59 18:59 Intake Total 1000 1362.36 500 Output Total 1100 600 225 Balance -100 762.36 275 Weight 141.5 kg 142 kg Intake: IV 1000 1200 500 Sodium Chloride 0.9% 1, 1000 1200 500 000 ml @ 100 mls/hr IV . Q10H [facility] Rx#:[id number] Intake, IV Titration 0 42.36 Amount Norepinephrine 4 mg In 0 42.36 Sodium Chloride 0.9% 250 ml @ 0.05 MCG/KG/MIN 24. 346 mls/hr IV .[id number] [facility] Rx#:[id number] Oral 120 Output: Urine 650 600 100 Stool 150 125 Urine/Stool Mix 300 Other: Voiding Method Bedside Commode Bedside Commode Bedside Commode # Voids 1 # Bowel Movements 1 1 1 - Exam Physical Exam: Revealed a 78-year-old female in no distress. Extremely pleasant. On room air. Head: Atraumatic, normocephalic. HEENT:[Neck is supple.] [No neck masses.] [No thyromegaly.] [No JVD.] Chest: [Clear throughout, no crackles, no rhonchi, no wheezes.] Cardiac Exam: [Normal S1 and S2, no S3 gallop, no murmur.] Abdomen: [Obese Soft, nontender, no megaly, no rebound, no guarding, normal bowel sounds.] Possible ascites and significant abdominal wall edema noted. Extremities: [No clubbing, 2+ bipedal edema, no cyanosis.] Neurological Exam: [No focal neurologic deficit.] Alert and oriented 3. Psychiatric: Normal mood affect and normal mental status examination. Skin: No rashes. Musculoskeletal: No joint swelling or deformity, no limitation in range of motion. Lymphatics: No lymphadenopathy. - Labs CBC & Chem 7: 06/29/19 04:25 06/29/19 04:25 Labs: Abnormal Lab Results - Last 24 Hours (Table) 06/28/19 06/28/19 06/29/19 Range/Units 04:18 04:18 04:25 RBC 2.37 L (3.80-5.40) m/uL Hgb 8.0 L (11.4-16.0) gm/dL Hct 25.6 L (34.0-46.0) % MCV 108.0 H (80.0-100.0) fL RDW 17.8 H (11.5-15.5) % Lymphocytes # 0.6 L (1.0-4.8) k/uL Macrocytosis Marked A Chloride (98-107) mmol/L Carbon Dioxide (22-30) mmol/L BUN (7-17) mg/dL Glucose (74-99) mg/dL Calcium (8.4-10.2) mg/dL Iron 18 L (50-170) ug/dL % Saturation 6.06 L (12.00-45.00) Total Bilirubin (0.2-1.3) mg/dL Conjugated Bilirubin (0.0-0.3) mg/dL Unconjugated Bilirubin (0.0-1.1) mg/dL Delta Bilirubin (0.0-0.2) mg/dL AST (14-36) U/L ALT (9-52) U/L Alkaline Phosphatase (38-126) U/L Total Protein (6.3-8.2) g/dL Total Protein (PEP) 5.1 L (6.2-8.2) g/dL Albumin (3.5-5.0) g/dL Tumor Marker AFP 881.4 H (0.0-7.9) ng/mL 06/29/19 06/29/19 Range/Units 04:25 04:25 RBC (3.80-5.40) m/uL Hgb (11.4-16.0) gm/dL Hct (34.0-46.0) % MCV (80.0-100.0) fL RDW (11.5-15.5) % Lymphocytes # (1.0-4.8) k/uL Macrocytosis Chloride 115 H (98-107) mmol/L Carbon Dioxide 17 L (22-30) mmol/L BUN 35 H (7-17) mg/dL Glucose 100 H (74-99) mg/dL Calcium 7.7 L (8.4-10.2) mg/dL Iron (50-170) ug/dL % Saturation (12.00-45.00) Total Bilirubin 6.0 H (0.2-1.3) mg/dL Conjugated Bilirubin 1.6 H (0.0-0.3) mg/dL Unconjugated Bilirubin 1.5 H (0.0-1.1) mg/dL Delta Bilirubin 2.9 H (0.0-0.2) mg/dL AST 468 H (14-36) U/L ALT 149 H (9-52) U/L Alkaline Phosphatase 276 H (38-126) U/L Total Protein 5.6 L (6.3-8.2) g/dL Total Protein (PEP) (6.2-8.2) g/dL Albumin 2.6 L (3.5-5.0) g/dL Tumor Marker AFP (0.0-7.9) ng/mL Microbiology - Last 24 Hours (Table) 06/28/19 15:46 Gram Stain - Preliminary Ascites Fluid Body Fluid Culture - Preliminary 06/28/19 15:15 Anaerobic Culture - Preliminary Ascites Fluid Assessment and Plan Assessment: Impression: 1 acute GI bleeding, likely small bowel source considering that EGD and colonoscopy were negative. Being addressed by gastroenterology on the case. 2 abnormal liver enzymes, could be secondary to statin. Drug induced hepatitis. Hence Lipitor was discontinued. Further workup was reviewed, patient has elevated alpha-fetoprotein otherwise all studies were negative. 3 acute kidney injury secondary to hypotension, dee inhibitors and diuretics. Her kidney functioning is significantly improved today. 4 hypotension, hypovolemia, resolved. 5 morbid obesity 6 mild to moderate pulmonary hypertension 7 chronic cor pulmonale 8 nonspecific pulmonary nodules however the patient will eventually require a dedicated CT of the chest, and a decision would have to be made whether she could tolerate biopsy of the right lower lobe nodule. This could be done on outpatient basis. 9 coronary artery disease and previous [place] 10 hyperlipidemia Recommendation: Continue present supportive care measures. Continue IV fluids . GI consultation was noted. Patient is status post paracentesis results of which are pending. 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 Patient may require dedicated CT of the chest on outpatient basis to evaluate her pulmonary nodules again no burns to proceed to CT of the chest at this point considering her renal functioning and the patient will definitely require contrast media. Had a long discussion with the patient as well as her multiple family members at bedside, recommended transferring the patient out of the ICU to a monitor bed on selective. We'll continue to follow. Time with Patient: Less than 30
--- NOTE | 2019-06-29 13:34 | P.PN ---
Subjective Progress Note Date: 06/28/19 No further episodes of rectal bleeding, hemoglobin 8.2. Maintained on IV fluids and Levophed drip. Renal function improving, creatinine down to 1.16. Elevated LFTs, bilirubin 6.1, AST 6:30, ALT 169, alk phos 257-GI consulted with recommendations pending. Borderline hypotension with systolic blood pressures in the 90s to low 100s. Maintaining O2 sats of high 90s on 3 L nasal cannula. Denies nausea, vomiting or diarrhea. Denies abdominal pain. Abdomen/pelvis CT reporting multiple bilateral pulmonary nodules greater on the right possible neoplasm, small bilateral pleural effusions, ascites, somewhat thickening of ascending colon, patchy density within the liver, nonspecific .Evaluated by surgery with no further surgical intervention recommended at this time. 06/28/2019 no further bleeding, hemoglobin stable,8.0. VSS, Levophed weaned off since early this am. T bili , LFTs remain elevated. Evaluated by GI, recommendations noted. Liver serologies pending, diagnostic paracentesis/fluid analysis recommended. AFP elevated 881.4. Pulmonary recommending further workup outpatient regarding pulmonary nodules reported on CT. Afebrile, normal WBC. Renal function improving, creatinine down to 1. Objective - Vital Signs Vital signs: Vital Signs Temp 97.7 F 06/28/19 08:00 Pulse 68 06/28/19 08:15 Resp 15 06/28/19 08:15 BP 102/60 06/28/19 08:15 Pulse Ox 95 06/28/19 08:15 Intake & Output 06/27/19 06/28/19 06/28/19 18:59 06:59 18:59 Intake Total 3281.926 8606.915 100 Output Total 1250 1020 300 Balance -91.671 1186.915 -200 Weight 141.5 kg Intake: IV 1000 1200 100 Sodium Chloride 0.9% 1, 1000 1200 100 000 ml @ 100 mls/hr IV . Q10H [facility] Rx#:[id number] Intake, IV Titration 158.329 266.915 Amount Norepinephrine 4 mg In 158.329 266.915 Sodium Chloride 0.9% 250 ml @ 0.05 MCG/KG/MIN 24. 346 mls/hr IV .[id number] [facility] Rx#:[id number] Oral 740 Output: Urine 1250 380 0 Stool 200 Urine/Stool Mix 440 300 Other: Voiding Method Bedside Commode Bedside Commode # Bowel Movements 1 1 - Exam GENERAL: alert and oriented x3, not in any acute distress. HEENT: Pupils are round and equally reacting to light. EOMI. No scleral icterus. No conjunctival pallor. Normocephalic, atraumatic. No pharyngeal erythema. No thyromegaly. CARDIOVASCULAR: S1 and S2 present. No rubs, or gallops. Systolic murmur PULMONARY: Chest is clear to auscultation, no wheezing or crackles. No rhonchi. ABDOMEN: Soft, nontender, nondistended, normoactive bowel sounds. Possible ascites .No palpable organomegaly. EXTREMITIES: Positive lower extremity edema. No clubbing, no cyanosis NEUROLOGICAL: Gross neurological examination did not reveal any focal deficits. SKIN: No rashes. - Labs CBC & Chem 7: 06/29/19 04:25 06/29/19 04:25 Labs: Abnormal Lab Results - Last 24 Hours (Table) 06/27/19 06/28/19 06/28/19 Range/Units 04:28 04:18 04:23 RBC 2.33 L (3.80-5.40) m/uL Hgb 7.9 L (11.4-16.0) gm/dL Hct 25.0 L (34.0-46.0) % MCV 107.4 H (80.0-100.0) fL RDW 18.1 H (11.5-15.5) % Neutrophils # 7.8 H (1.3-7.7) k/uL Lymphocytes # 0.7 L (1.0-4.8) k/uL Macrocytosis Marked A Chloride 112 H (98-107) mmol/L Carbon Dioxide 19 L (22-30) mmol/L BUN 40 H (7-17) mg/dL Glucose 105 H (74-99) mg/dL Calcium 7.7 L (8.4-10.2) mg/dL Total Bilirubin 5.9 H (0.2-1.3) mg/dL AST 522 H (14-36) U/L ALT 157 H (9-52) U/L Alkaline Phosphatase 274 H (38-126) U/L Total Protein 5.6 L (6.3-8.2) g/dL Albumin 2.7 L (3.5-5.0) g/dL Lipase 462 H (23-300) U/L Assessment and Plan Assessment: -Acute GI bleed, status post EGD and coloscopy reporting esophagitis, gastritis and diverticulosis. -acute renal failure secondary to hypotension, medication induced. -Acute on chronic liver disease -Coronary artery disease, history of [place] -Hyperlipidemia -Hypertension and presently with hypotension, drug-induced and hypovolemic- pressor dependent. -Obesity, morbid, BMI 52.3 -Depression -Hypothyroidism -Pulmonary hypertension -Chronic cor pulmonale secondary to the above -Elevated troponins, cardiology following. -Abdomen/pelvis CT reporting multiple bilateral pulmonary nodules greater on the right possible neoplasm, small bilateral pleural effusions, further workup outpatient with pulmonary - thickening of ascending colon, somewhat patchy density within the liver, nonspecific , GI following, workup in progress Plan: Continue on current medication regime ,monitoring and symptomatic treatment. IV fluid hydration. Diagnostic Paracentesis pending. Close monitoring of hemoglobin, LFTs with repeat labs ordered for a.m. The impression and plan of care has been dictated as directed. : I performed a history and examination of this patient, discussed the same with the dictator. I agree with the dictator's note ,documented as a scribe. Any additional findings or plans will be noted.
[2019-06-29 13:46] LABS: Albumin 2.54 g/dL (3.80-4.90); Gamma Globulin 0.79 g/dL (0.70-1.50)
[2019-06-29] MEDS ORDERED: ALPRAZolam 0.25 MG TAB PO PRN (14:16)
--- NOTE | 2019-06-29 14:53 | P.PN ---
Subjective Progress Note Date: 06/28/19 No further episodes of rectal bleeding, hemoglobin 8.2. Maintained on IV fluids and Levophed drip. Renal function improving, creatinine down to 1.16. Elevated LFTs, bilirubin 6.1, AST 6:30, ALT 169, alk phos 257-GI consulted with recommendations pending. Borderline hypotension with systolic blood pressures in the 90s to low 100s. Maintaining O2 sats of high 90s on 3 L nasal cannula. Denies nausea, vomiting or diarrhea. Denies abdominal pain. Abdomen/pelvis CT reporting multiple bilateral pulmonary nodules greater on the right possible neoplasm, small bilateral pleural effusions, ascites, somewhat thickening of ascending colon, patchy density within the liver, nonspecific .Evaluated by surgery with no further surgical intervention recommended at this time. 06/28/2019 no further bleeding, hemoglobin stable,8.0. VSS, Levophed weaned off since early this am. T bili , LFTs remain elevated. Evaluated by GI, recommendations noted. Liver serologies pending, diagnostic paracentesis/fluid analysis recommended. AFP elevated 881.4. Pulmonary recommending further workup outpatient regarding pulmonary nodules reported on CT. Afebrile, normal WBC. Renal function improving, creatinine down to 1. 06/29/2019 Last night developed new onset atrial fibrillation with RVR, received metoprol, heart rate currently in the 120s. Echo reporting normal LV function, EF 55-60% Hemoglobin 8. No anticoagulation secondary to GI bleed. Underwent paracentesis yesterday with 200 MLS peritoneal serous fluid drained, cultures/labs pending. AFP elevated 881. Afebrile, normal WBC. Renal function continued to improve, creatinine down to 0.85. T bili/LFTs remain elevated. Objective - Vital Signs Vital signs: Vital Signs Temp 98 F 06/28/19 16:00 Pulse 71 06/28/19 17:00 Resp 17 06/28/19 17:00 BP 88/63 06/28/19 17:00 Pulse Ox 96 06/28/19 17:00 Intake & Output 06/27/19 06/28/19 06/28/19 18:59 06:59 18:59 Intake Total 9572.400 8816.915 900 Output Total 1250 1020 850 Balance -91.671 1186.915 50 Weight 141.5 kg 141.5 kg Intake: IV 1000 1200 900 Sodium Chloride 0.9% 1, 1000 1200 900 000 ml @ 100 mls/hr IV . Q10H [facility] Rx#:[id number] Intake, IV Titration 158.329 266.915 0 Amount Norepinephrine 4 mg In 158.329 266.915 0 Sodium Chloride 0.9% 250 ml @ 0.05 MCG/KG/MIN 24. 346 mls/hr IV .[id number] [facility] Rx#:[id number] Oral 740 Output: Urine 1250 380 400 Stool 200 150 Urine/Stool Mix 440 300 Other: Voiding Method Bedside Commode Bedside Commode Bedside Commode # Bowel Movements 1 1 1 - Exam GENERAL: alert and oriented x3, not in any acute distress. HEENT: Pupils are round and equally reacting to light. EOMI. No scleral icterus. No conjunctival pallor. Normocephalic, atraumatic. No pharyngeal erythema. No thyromegaly. CARDIOVASCULAR: S1 and S2 present. No rubs, or gallops. Systolic murmur PULMONARY: Chest is clear to auscultation, no wheezing or crackles. No rhonchi. ABDOMEN: Soft, nontender, nondistended, normoactive bowel sounds.No palpable organomegaly. EXTREMITIES: Positive lower extremity edema. No clubbing, no cyanosis NEUROLOGICAL: Gross neurological examination did not reveal any focal deficits. SKIN: No rashes. - Labs CBC & Chem 7: 06/29/19 04:25 06/29/19 04:25 Labs: Abnormal Lab Results - Last 24 Hours (Table) 06/28/19 06/28/19 06/28/19 Range/Units 04:18 04:18 04:18 RBC (3.80-5.40) m/uL Hgb (11.4-16.0) gm/dL Hct (34.0-46.0) % MCV (80.0-100.0) fL RDW (11.5-15.5) % Neutrophils # (1.3-7.7) k/uL Lymphocytes # (1.0-4.8) k/uL Macrocytosis Chloride 112 H (98-107) mmol/L Carbon Dioxide 19 L (22-30) mmol/L BUN 40 H (7-17) mg/dL Glucose 105 H (74-99) mg/dL Calcium 7.7 L (8.4-10.2) mg/dL Iron 18 L (50-170) ug/dL % Saturation 6.06 L (12.00-45.00) Total Bilirubin 5.9 H (0.2-1.3) mg/dL AST 522 H (14-36) U/L ALT 157 H (9-52) U/L Alkaline Phosphatase 274 H (38-126) U/L Total Protein 5.6 L (6.3-8.2) g/dL Albumin 2.7 L (3.5-5.0) g/dL Tumor Marker AFP 881.4 H (0.0-7.9) ng/mL 06/28/19 Range/Units 04:23 RBC 2.33 L (3.80-5.40) m/uL Hgb 7.9 L (11.4-16.0) gm/dL Hct 25.0 L (34.0-46.0) % MCV 107.4 H (80.0-100.0) fL RDW 18.1 H (11.5-15.5) % Neutrophils # 7.8 H (1.3-7.7) k/uL Lymphocytes # 0.7 L (1.0-4.8) k/uL Macrocytosis Marked A Chloride (98-107) mmol/L Carbon Dioxide (22-30) mmol/L BUN (7-17) mg/dL Glucose (74-99) mg/dL Calcium (8.4-10.2) mg/dL Iron (50-170) ug/dL % Saturation (12.00-45.00) Total Bilirubin (0.2-1.3) mg/dL AST (14-36) U/L ALT (9-52) U/L Alkaline Phosphatase (38-126) U/L Total Protein (6.3-8.2) g/dL Albumin (3.5-5.0) g/dL Tumor Marker AFP (0.0-7.9) ng/mL Assessment and Plan Assessment: -Acute GI bleed, status post EGD and coloscopy reporting esophagitis, gastritis and diverticulosis. -acute renal failure secondary to hypotension, medication induced. -Acute on chronic liver disease. Possible statin-induced hepatitis. -Status post paracentesis, 200ml serous drainage, elevated AFP. MRI pending as per GI. -New onset atrial fibrillation with RVR, not a candidate for anticoagulation GI bleed. -Coronary artery disease, history of [place] -Hyperlipidemia -Hypertension and presently with hypotension, drug-induced and hypovolemic- pressor dependent. -Obesity, morbid, BMI 52.3 -Depression -Hypothyroidism -Pulmonary hypertension -Chronic cor pulmonale secondary to the above -Elevated troponins, cardiology following. -Abdomen/pelvis CT reporting multiple bilateral pulmonary nodules greater on the right possible neoplasm, small bilateral pleural effusions, further workup outpatient with pulmonary/CT/Bx. - thickening of ascending colon, somewhat patchy density within the liver, nonspecific , GI following, workup in progress Plan: Continue on current medication regime ,monitoring and symptomatic treatment. IV fluid hydration. Paracentesis cx pending. GI discussed seeing MRI versus CT. Close monitoring of hemoglobin, LFTs with repeat labs ordered for a.m. The impression and plan of care has been dictated as directed. : I performed a history and examination of this patient, discussed the same with the dictator. I agree with the dictator's note ,documented as a scribe. Any additional findings or plans will be noted.
--- NOTE | 2019-06-29 15:00 | P.PN ---
Subjective Progress Note Date: 06/29/19 No further episodes of rectal bleeding, hemoglobin 8.2. Maintained on IV fluids and Levophed drip. Renal function improving, creatinine down to 1.16. Elevated LFTs, bilirubin 6.1, AST 6:30, ALT 169, alk phos 257-GI consulted with recommendations pending. Borderline hypotension with systolic blood pressures in the 90s to low 100s. Maintaining O2 sats of high 90s on 3 L nasal cannula. Denies nausea, vomiting or diarrhea. Denies abdominal pain. Abdomen/pelvis CT reporting multiple bilateral pulmonary nodules greater on the right possible neoplasm, small bilateral pleural effusions, ascites, somewhat thickening of ascending colon, patchy density within the liver, nonspecific .Evaluated by surgery with no further surgical intervention recommended at this time. 06/28/2019 no further bleeding, hemoglobin stable,8.0. VSS, Levophed weaned off since early this am. T bili , LFTs remain elevated. Evaluated by GI, recommendations noted. Liver serologies pending, diagnostic paracentesis/fluid analysis recommended. AFP elevated 881.4. Pulmonary recommending further workup outpatient regarding pulmonary nodules reported on CT. Afebrile, normal WBC. Renal function improving, creatinine down to 1. 06/29/2019 Last night developed new onset atrial fibrillation with RVR, received metoprol, heart rate currently in the 120s. Echo reporting normal LV function, EF 55-60% Hemoglobin 8. No anticoagulation secondary to GI bleed. Underwent paracentesis yesterday with 200 MLS peritoneal serous fluid drained, cultures/labs pending. AFP elevated 881. Afebrile, normal WBC. Renal function continued to improve, creatinine down to 0.85. T bili/LFTs remain elevated. Objective - Vital Signs Vital signs: Vital Signs Temp 97.8 F 06/29/19 12:00 Pulse 114 H 06/29/19 12:00 Resp 20 06/29/19 12:00 BP 96/66 06/29/19 12:00 Pulse Ox 92 L 06/29/19 12:00 Intake & Output 06/28/19 06/29/19 06/29/19 18:59 06:59 18:59 Intake Total 1000 1362.36 500 Output Total 1100 600 225 Balance -100 762.36 275 Weight 141.5 kg 142 kg Intake: IV 1000 1200 500 Sodium Chloride 0.9% 1, 1000 1200 500 000 ml @ 100 mls/hr IV . Q10H [facility] Rx#:[id number] Intake, IV Titration 0 42.36 Amount Norepinephrine 4 mg In 0 42.36 Sodium Chloride 0.9% 250 ml @ 0.05 MCG/KG/MIN 24. 346 mls/hr IV .[id number] [facility] Rx#:[id number] Oral 120 Output: Urine 650 600 100 Stool 150 125 Urine/Stool Mix 300 Other: Voiding Method Bedside Commode Bedside Commode Bedside Commode # Voids 1 # Bowel Movements 1 1 1 - Exam GENERAL: alert and oriented x3, not in any acute distress. HEENT: Pupils are round and equally reacting to light. EOMI. No scleral icterus. No conjunctival pallor. Normocephalic, atraumatic. No pharyngeal erythema. No thyromegaly. CARDIOVASCULAR: S1 and S2 present. No rubs, or gallops. Systolic murmur PULMONARY: Chest is clear to auscultation, no wheezing or crackles. No rhonchi. ABDOMEN: Soft, nontender, nondistended, normoactive bowel sounds.No palpable organomegaly. EXTREMITIES: Positive lower extremity edema. No clubbing, no cyanosis NEUROLOGICAL: Gross neurological examination did not reveal any focal deficits. SKIN: No rashes. - Labs CBC & Chem 7: 06/29/19 04:25 06/29/19 04:25 Labs: Abnormal Lab Results - Last 24 Hours (Table) 06/28/19 06/28/19 06/29/19 Range/Units 04:18 04:18 04:25 RBC 2.37 L (3.80-5.40) m/uL Hgb 8.0 L (11.4-16.0) gm/dL Hct 25.6 L (34.0-46.0) % MCV 108.0 H (80.0-100.0) fL RDW 17.8 H (11.5-15.5) % Lymphocytes # 0.6 L (1.0-4.8) k/uL Macrocytosis Marked A Chloride (98-107) mmol/L Carbon Dioxide (22-30) mmol/L BUN (7-17) mg/dL Glucose (74-99) mg/dL Calcium (8.4-10.2) mg/dL Iron 18 L (50-170) ug/dL % Saturation 6.06 L (12.00-45.00) Total Bilirubin (0.2-1.3) mg/dL Conjugated Bilirubin (0.0-0.3) mg/dL Unconjugated Bilirubin (0.0-1.1) mg/dL Delta Bilirubin (0.0-0.2) mg/dL AST (14-36) U/L ALT (9-52) U/L Alkaline Phosphatase (38-126) U/L Total Protein (6.3-8.2) g/dL Total Protein (PEP) 5.1 L (6.2-8.2) g/dL Albumin (3.5-5.0) g/dL Albumin (PEP) 2.54 L (3.80-4.90) g/dL Qfflp-6-Tzziilodk 0.45 H (0.10-0.40) g/dL Uiqnz-0-Huuohsnqhrd 247.0 H (99.0-242.0) mg/dL Tumor Marker AFP 881.4 H (0.0-7.9) ng/mL 06/29/19 06/29/19 Range/Units 04:25 04:25 RBC (3.80-5.40) m/uL Hgb (11.4-16.0) gm/dL Hct (34.0-46.0) % MCV (80.0-100.0) fL RDW (11.5-15.5) % Lymphocytes # (1.0-4.8) k/uL Macrocytosis Chloride 115 H (98-107) mmol/L Carbon Dioxide 17 L (22-30) mmol/L BUN 35 H (7-17) mg/dL Glucose 100 H (74-99) mg/dL Calcium 7.7 L (8.4-10.2) mg/dL Iron (50-170) ug/dL % Saturation (12.00-45.00) Total Bilirubin 6.0 H (0.2-1.3) mg/dL Conjugated Bilirubin 1.6 H (0.0-0.3) mg/dL Unconjugated Bilirubin 1.5 H (0.0-1.1) mg/dL Delta Bilirubin 2.9 H (0.0-0.2) mg/dL AST 468 H (14-36) U/L ALT 149 H (9-52) U/L Alkaline Phosphatase 276 H (38-126) U/L Total Protein 5.6 L (6.3-8.2) g/dL Total Protein (PEP) (6.2-8.2) g/dL Albumin 2.6 L (3.5-5.0) g/dL Albumin (PEP) (3.80-4.90) g/dL Xyqsw-4-Wntglvqne (0.10-0.40) g/dL Htjam-1-Jpirtclfmxw (99.0-242.0) mg/dL Tumor Marker AFP (0.0-7.9) ng/mL Microbiology - Last 24 Hours (Table) 06/28/19 15:46 Gram Stain - Preliminary Ascites Fluid Body Fluid Culture - Preliminary 06/28/19 15:15 Anaerobic Culture - Preliminary Ascites Fluid Assessment and Plan Assessment: -Acute GI bleed, status post EGD and coloscopy reporting esophagitis, gastritis and diverticulosis. -acute renal failure secondary to hypotension, medication induced. -Acute on chronic liver disease. Possible statin-induced hepatitis. -Status post paracentesis, 200ml serous drainage, elevated AFP. MRI pending as per GI. -New onset atrial fibrillation with RVR, not a candidate for anticoagulation GI bleed. -Coronary artery disease, history of [place] -Hyperlipidemia -Hypertension and presently with hypotension, drug-induced and hypovolemic- pressor dependent. -Obesity, morbid, BMI 52.3 -Depression -Hypothyroidism -Pulmonary hypertension -Chronic cor pulmonale secondary to the above -Elevated troponins, cardiology following. -Abdomen/pelvis CT reporting multiple bilateral pulmonary nodules greater on the right possible neoplasm, small bilateral pleural effusions, further workup outpatient with pulmonary/CT/Bx. - thickening of ascending colon, somewhat patchy density within the liver, nonsp ecific , GI following, workup in progress Plan: Continue on current medication regime ,monitoring and symptomatic treatment. IV fluid hydration. Paracentesis cx pending. GI discussed seeing MRI versus CT. Close monitoring of hemoglobin, LFTs with repeat labs ordered for a.m. The impression and plan of care has been dictated as directed. : I performed a history and examination of this patient, discussed the same with the dictator. I agree with the dictator's note ,documented as a scribe. Any additional findings or plans will be noted.
--- NOTE | 2019-06-29 17:24 | PN ---
PROGRESS NOTE DATE OF DICTATION: 06/29/2019 The patient is a 78-year-old pleasant white female admitted to the hospital with acute GI bleed. While in the hospital she was noted to have elevated serum transaminases and hence we were consulted. Dr. Shannon saw the patient yesterday. She was noted to have elevated serum transaminases since the day of hospitalization, which was 5 days ago. Her serum transaminases continue to remain the same, with AST in the range of 600s and ALT in the range of 200s with a T-bilirubin of around 6.1. Alkaline phosphatase is 257. As a part of workup, she did have hepatitis serologies for A, B and C done which were negative. Autoimmune workup, including antinuclear antibody, antimitochondrial antibody, anti-smooth muscle antibody, were all negative. She did have some ascites noted and she underwent paracentesis. Serum ascitic albumin gradient was more than 1.1, indicating we are dealing with portal hypertension. The patient, however, denies any prior history of chronic liver disease. She was told that her serum transaminases were elevated about 2 weeks ago on an outpatient basis. She was started on a few medications recently after having a cardiac stent placed about 2 months ago. No history of chronic liver disease. No history of alcohol abuse. As a part of her workup she also had alpha fetoprotein done that was elevated at 881. She did have a CT of the abdomen and pelvis done at the time of admission to the hospital that showed a heterogeneous-appearing liver and multiple nodules in the lung. The CT was done without contrast. There is also presence of ascites noted. She denies any symptoms today. PHYSICAL EXAMINATION: She appears comfortable, in no apparent distress. Vital signs are stable. Blood pressure 96/66, pulse rate 114, temperature 97.8. HEENT examination unremarkable. Conjunctivae pink. Sclerae anicteric. Oral cavity no lesions. NECK: No JVD or lymph node enlargement. CHEST: Clear to auscultation. HEART: Regular rate and rhythm. ABDOMEN: Soft. Bowel sounds are positive. Obese. EXTREMITIES: No pedal edema. SKIN: No rashes. NEUROLOGIC: Alert and oriented x3. No focal deficits. LABS: Labs done today show T-bilirubin 6.6, AST 468, ALT 149, alkaline phosphatase 276. Hepatitis A, B and C are negative. Alpha fetoprotein elevated at 881. Alpha-1 antitrypsin normal. Ceruloplasmin normal. Autoimmune workup is negative. IMPRESSION: 1. Acute elevation of serum transaminases and jaundice noted during this hospitalization. On further questioning, the patient states that they were elevated about 2 weeks ago. No prior history of chronic liver disease. CT of the abdomen without contrast showed heterogeneous-appearing liver could not be adequately visualized. She is also noted to have elevated alpha fetoprotein at 889, suspicious for hepatocellular carcinoma. She did have ascites noted on recent CT scan of the abdomen. She has been started on some new medications following the cardiac stent placement about 2 months ago, including Lipitor that has been on hold since hospitalization. Most likely we are dealing with chronic liver disease superimposed with acute cholestatic liver disease/acute hepatitis, possibly medication-induced. 2. Elevated alpha-fetoprotein. Rule out hepatocellular carcinoma. 3. Ascites, status post paracentesis for diagnostic purposes yesterday. Serum ascitic albumin gradient more than 1.1, suggestive of portal hypertension, possibly related to underlying chronic liver disease. 4. Acute gastrointestinal bleed, resolved. RECOMMENDATIONS: 1. Hold Lipitor. 2. Schedule her for MRI of the liver to rule out mass. 3. Repeat LFTs in the morning. 4. Discussed with the patient as well as her daughter the plan of care, and they are agreeable to it. Thank you for this consultation. MMDOMENICOL / IJN: [id number] /
[2019-06-30] MEDS ORDERED: METOPROLOL TARTRATE 12.5 MG TAB PO STA (01:29)
[2019-06-30] MEDS: SODIUM CHLORIDE 0.9% 1,000 ML IV SCH ×2 (02:18→18:55)
[2019-06-30 05:05] LABS: Albumin 2.6 g/dL (3.5-5.0); Calcium 7.9 mg/dL (8.4-10.2); Potassium 3.9 mmol/L (3.5-5.1); Total Bilirubin 5.2 mg/dL (0.2-1.3); Total Protein 5.6 g/dL (6.3-8.2)
[2019-06-30 06:01] LABS: Anisocytosis Slight; Basophils % (A) 0 %; Eosinophils # (A) 0.2 k/uL (0-0.7); Eosinophils % (A) 2 %; HCT 26.8 % (34.0-46.0); Hypochromasia Marked; Lymphocytes # (A) 0.8 k/uL (1.0-4.8); Lymphocytes % (A) 10 %; MCH 32.4 pg (25.0-35.0); MCHC 30.1 g/dL (31.0-37.0); MCV 107.8 fL (80.0-100.0); Macrocytosis Marked; Mean Platelet Volume 6.8; Monocytes # (A) 0.4 k/uL (0-1.0); Monocytes % (A) 5 %; Neutrophils # (A) 6.4 k/uL (1.3-7.7); Neutrophils % (A) 81 %; Platelet Count 259 k/uL (150-450); Poikilocytosis Slight; RBC 2.48 m/uL (3.80-5.40); RDW 18.1 % (11.5-15.5)
[2019-06-30] MEDS: LEVOTHYROXINE 112 MCG TAB PO SCH (07:00)
--- NOTE | 2019-06-30 07:24 | P.PN ---
Subjective Progress Note Date: 06/30/19 Principal diagnosis: Paroxysmal atrial fibrillation This is a pleasant 78-year-old female patient with a past medical history significant for diabetes, hypertension, dyslipidemia was admitted to the hospital with GI bleeding. We consulted initially to see the patient for mildly abnormal troponin which was treated medically. We signed off on the patient at that point. Subsequently we reconsulted to see the patient again because she went into A. fib with RVR. On follow-up with the patient today, 06/30/2019, the patient did have an episode of atrial fibrillation with RVR last night she was given additional dose of metoprolol. Current she is in sinus rhythm. I am going to increase the dose of metoprolol to 25 mg by mouth twice a day hoping to keep the patient in normal sinus mechanism. The echocardiogram revealed normal left ventricular systolic function. The patient is not a candidate to receive oral anticoagulation. Objective - Vital Signs Vital signs: Vital Signs Temp 97.8 F 06/30/19 04:00 Pulse 55 L 06/30/19 04:00 Resp 16 06/30/19 04:00 BP 104/56 06/30/19 04:00 Pulse Ox 94 L 06/30/19 04:00 Intake & Output 06/29/19 06/30/19 06/30/19 18:59 06:59 18:59 Intake Total 1100 1000 Output Total 225 470 Balance 875 530 Weight 144.8 kg Intake: IV 1100 1000 Sodium Chloride 0.9% 1, 1100 1000 000 ml @ 100 mls/hr IV . Q10H EDWIN Rx#:[id number] Output: Urine 100 470 Stool 125 Other: Voiding Method Bedside Commode Bedside Commode # Voids 1 # Bowel Movements 1 1 - Constitutional General appearance: Present: no acute distress - Respiratory Respiratory: bilateral: CTA - Cardiovascular Rhythm: regular Heart sounds: normal: S1, S2 - Labs CBC & Chem 7: 06/30/19 03:59 06/30/19 03:59 Labs: Abnormal Lab Results - Last 24 Hours (Table) 06/28/19 06/29/19 06/30/19 Range/Units 04:18 04:25 03:59 RBC (3.80-5.40) m/uL Hgb (11.4-16.0) gm/dL Hct (34.0-46.0) % MCV (80.0-100.0) fL MCHC (31.0-37.0) g/dL RDW (11.5-15.5) % Lymphocytes # (1.0-4.8) k/uL Macrocytosis Chloride 113 H (98-107) mmol/L Carbon Dioxide 18 L (22-30) mmol/L BUN 32 H (7-17) mg/dL Glucose 110 H (74-99) mg/dL Calcium 7.9 L (8.4-10.2) mg/dL Total Bilirubin 6.0 H 5.2 H (0.2-1.3) mg/dL Conjugated Bilirubin 1.6 H (0.0-0.3) mg/dL Unconjugated Bilirubin 1.5 H (0.0-1.1) mg/dL Delta Bilirubin 2.9 H (0.0-0.2) mg/dL AST 468 H 365 H (14-36) U/L ALT 149 H 133 H (9-52) U/L Alkaline Phosphatase 276 H 292 H (38-126) U/L Total Protein 5.6 L 5.6 L (6.3-8.2) g/dL Total Protein (PEP) 5.1 L (6.2-8.2) g/dL Albumin 2.6 L 2.6 L (3.5-5.0) g/dL Albumin (PEP) 2.54 L (3.80-4.90) g/dL Dqygl-5-Kjzmxnpud 0.45 H (0.10-0.40) g/dL Ertpq-6-Damnienyrlc 247.0 H (99.0-242.0) mg/dL Lipase 604 H (23-300) U/L 06/30/19 Range/Units 03:59 RBC 2.48 L (3.80-5.40) m/uL Hgb 8.0 L (11.4-16.0) gm/dL Hct 26.8 L (34.0-46.0) % MCV 107.8 H (80.0-100.0) fL MCHC 30.1 L (31.0-37.0) g/dL RDW 18.1 H (11.5-15.5) % Lymphocytes # 0.8 L (1.0-4.8) k/uL Macrocytosis Marked A Chloride (98-107) mmol/L Carbon Dioxide (22-30) mmol/L BUN (7-17) mg/dL Glucose (74-99) mg/dL Calcium (8.4-10.2) mg/dL Total Bilirubin (0.2-1.3) mg/dL Conjugated Bilirubin (0.0-0.3) mg/dL Unconjugated Bilirubin (0.0-1.1) mg/dL Delta Bilirubin (0.0-0.2) mg/dL AST (14-36) U/L ALT (9-52) U/L Alkaline Phosphatase (38-126) U/L Total Protein (6.3-8.2) g/dL Total Protein (PEP) (6.2-8.2) g/dL Albumin (3.5-5.0) g/dL Albumin (PEP) (3.80-4.90) g/dL Jwymc-3-Rudoptbel (0.10-0.40) g/dL Bdovb-5-Qunwiijurys (99.0-242.0) mg/dL Lipase (23-300) U/L Microbiology - Last 24 Hours (Table) 06/28/19 15:46 Gram Stain - Preliminary Ascites Fluid Body Fluid Culture - Preliminary Assessment and Plan Assessment: Assessment #1 GI bleeding #2 paroxysmal atrial fibrillation #3 mildly elevated troponin Plan #1 increase the dose of metoprolol #2 continue monitor the heart rate #3 she is not a candidate for anticoagulation #4 follow-up with the patient
[2019-06-30] MEDS: METOPROLOL TARTRATE 25 MG TAB PO SCH ×2 (08:25→21:51)
[2019-06-30] MEDS: PANTOPRAZOLE 40 MG/10 ML VIAL IV SCH ×2 (08:25→21:50)
[2019-06-30] MEDS ORDERED: METOPROLOL TARTRATE 25 MG TAB PO SCH (09:00)
--- NOTE | 2019-06-30 12:17 | P.PN ---
Subjective Progress Note Date: 06/30/19 CHIEF COMPLAINT: GI bleed HISTORY OF PRESENT ILLNESS: 78-year-old female who is status post EGD and colonoscopy revealing gastritis, esophagitis, and diverticulosis. Patient has had no further episodes of rectal bleeding. Bowel movements have been brown in color. Hemoglobin has remained stable. 8.0 this morning. PHYSICAL EXAM: VITAL SIGNS: Reviewed. GENERAL: Well-developed in no acute distress. HEENT: No sclera icterus. Extraocular movements grossly intact. Moist buccal mucosa. Head is atraumatic, normocephalic. ABDOMEN: Soft. Nondistended. Nontender. NEUROLOGIC: Alert and oriented. Cranial nerves II through XII grossly intact. ASSESSMENT: 1. GI bleed 2. Hyperbilirubinemia 3. Transaminitis 4. History of cholecystectomy PLAN: GI on consult for elevated LFTs Continue diet as tolerated Monitor hemoglobin No further surgical intervention recommended at this time We will continue to follow on an as-needed basis. Please call with any questions or concerns Nurse practitioner note has been reviewed by physician. Signing provider agrees with the documented findings, assessment, and plan of care. Objective - Vital Signs Vital signs: Vital Signs Temp 97.6 F 06/30/19 08:00 Pulse 61 06/30/19 08:00 Resp 17 06/30/19 08:00 BP 107/57 06/30/19 08:00 Pulse Ox 96 06/30/19 08:00 Intake & Output 06/29/19 06/30/19 06/30/19 18:59 06:59 18:59 Intake Total 1100 1000 100 Output Total 225 470 175 Balance 875 530 -75 Weight 144.8 kg Intake: IV 1100 1000 100 Sodium Chloride 0.9% 1, 1100 1000 100 000 ml @ 100 mls/hr IV . Q10H EDWIN Rx#:[id number] Output: Urine 100 470 50 Stool 125 125 Other: Voiding Method Bedside Commode Bedside Commode Bedside Commode # Voids 1 # Bowel Movements 1 1 1 - Labs CBC & Chem 7: 06/30/19 03:59 06/30/19 03:59 Labs: Abnormal Lab Results - Last 24 Hours (Table) 06/28/19 06/30/19 06/30/19 Range/Units 04:18 03:59 03:59 RBC 2.48 L (3.80-5.40) m/uL Hgb 8.0 L (11.4-16.0) gm/dL Hct 26.8 L (34.0-46.0) % MCV 107.8 H (80.0-100.0) fL MCHC 30.1 L (31.0-37.0) g/dL RDW 18.1 H (11.5-15.5) % Lymphocytes # 0.8 L (1.0-4.8) k/uL Macrocytosis Marked A Chloride 113 H (98-107) mmol/L Carbon Dioxide 18 L (22-30) mmol/L BUN 32 H (7-17) mg/dL Glucose 110 H (74-99) mg/dL Calcium 7.9 L (8.4-10.2) mg/dL Total Bilirubin 5.2 H (0.2-1.3) mg/dL AST 365 H (14-36) U/L ALT 133 H (9-52) U/L Alkaline Phosphatase 292 H (38-126) U/L Total Protein 5.6 L (6.3-8.2) g/dL Albumin 2.6 L (3.5-5.0) g/dL Albumin (PEP) 2.54 L (3.80-4.90) g/dL Aeyug-3-Sksbshyrl 0.45 H (0.10-0.40) g/dL Raglj-4-Ubkffwphgwq 247.0 H (99.0-242.0) mg/dL Lipase 604 H (23-300) U/L Microbiology - Last 24 Hours (Table) 06/28/19 15:46 Gram Stain - Preliminary Ascites Fluid Body Fluid Culture - Preliminary
--- NOTE | 2019-06-30 12:50 | P.PN ---
Subjective Progress Note Date: 06/30/19 Principal diagnosis: Acute GI bleeding This 78-year-old. Patient got transferred to the intensive care yesterday because of hypotension. This patient was hospitalized because of GI bleeding. She was passing tarry stool. She had also noted some bright red blood with passing of clots in her stool. She denied having any dizziness or lightheadedness or abdominal pain. She also noticed some increased shortness of breath. She went to her primary care physician but after passing a large BM that was bloody she came into the emergency department on 06/23/2019. No history of alcohol use. No intake of any nonsteroidal anti-inflammatory medication. She had previous colonoscopy was done around 5 years which was normal. Hemoglobin at time of admission was 8.5. She has also abnormal LFTs with elevated bilirubin and a troponin was 0.065. The patient underwent EGD and colonoscopy during this current admission which did not reveal any significant abnormalities. It showed diverticulosis and esophagitis. The patient subsequently did not require any blood transfusion. She was started on diet. Her DEE inhibitor and hydrochlorothiazide were discontinued. Nevertheless, she went to an acute kidney injury in the creatinine came up to 1.7. She was started on IV fluids and yesterday after being hypotensive she got chest to the intensive care unit where she was given additional 2 L of normal saline. Subsequently she was placed on pressors and currently due for this clinic at 0.02 g per KG per minute. Urine output is no order of 400 mL since she is been to our intensive care unit. Creatinine today is slightly improved since down to 1.6. However, her LFTs are abnormal. As noted today, the AST is 155 and AST is 668 with a bilirubin of 4.8. Hepatitis profile is been negative. No further investigation was not regarding this abnormal LFTs and lives do not see any comments made by gastroenterology. She is awake and alert. Echo of the heart was done and it showed an ejection fraction of 5-60% and there is moderate to severe enlargement of the a with right-sided systolic pressure of 44 mmHg. Currently she is receiving IV fluids with 100 mL an hour of normal saline. No fever. No chills. No nausea. No vomiting. No emesis. Current hemoglobin is at 7.9. Platelet count is at 219. No anticoagulants for now. Serum bicarb is down to 18 Patient was reevaluated today on 06/27/2019, remains in the ICU, presently on a small dose of norepinephrine, her dose is 0.05 mcg/kg/m. Patient received significant amount of fluids for her hypotension, and her blood pressure remains marginal. Hemoglobin today is 8.2. Her basic metabolic profile is relatively normal except for low bicarb of 17 BUN is 50 and creatinine is improving down to 1.16. 2 days ago, her hemoglobin was as high as 1.89. Lipase was noted to be elevated at 717 and amylase is 68. Patient continues to have intermittent episodes of black tarry stools, her EGD and her colonoscopy were both nondiagnostic. Hence I have recommended GI evaluation, patient may actually require a capsule endoscopy. This will be decided upon by gastroenterology. In the meantime we'll continue IV fluids, and continued to titrate the norepinephrine for her low blood pressure. Liver enzymes were noted to be elevated, her ALT is 169 AST is 630 and her total bilirubin is 7.6. CT of the abdomen and pelvis were noted, multiple nonspecific pulmonary nodules were noted, and there is a masslike opacity in the right posterior lung above the diaphragm measuring 2.61.8 cm, this was definitely need to be evaluated on outpatient basis, and decide whether the patient will require biopsy however at this point we need to address her GI issues mostly. And the patient will definitely need a dedicated CT of the chest with contrast on outpatient basis once her renal functioning improves. The patient did have some ascites, however I doubt if she has significant ascites to warrant paracentesis at this point, this will be addressed by GI consultation. Echocardiogram done on this admission was basically unremarkable. Patient remains on IV fluids at 100 mL/h, but still requiring pressors. Peña catheter could not be placed, hence exact assessment of her fluid balance is not very accurate. Patient was reevaluated today on 06/28/2019, no further episodes of GI bleeding, hemoglobin remains stable, patient did not require any blood transfusion since admission. Patient is off norepinephrine, blood pressure seems to be stabilizing. She was seen by gastroenterology on consultation, and they seem to be addressing her GI bleeding as well as an incidental abnormal liver enzymes. Her hepatitis panel has been negative. And they are recommending paracentesis and fluid analysis for further evaluation of her elevated liver enzymes. They may even recommended a liver biopsy if no specific diagnosis is made from the ascites fluid. Pulmonary-morillo, the patient has no active pulmonary symptoms, she does have pulmonary nodules which would have to be addressed on an outpatient basis. Presently no cough no wheezing no shortness of breath. WBC count today is 9.2 hemoglobin is 7.90. renal profile is improving with BUN is 40 and creatinine 1.01. I went ahead and discontinued Lipitor. Patient was reevaluated today on 06/29/2019, no further episodes of GI bleeding, patient underwent paracentesis yesterday, and only 200 mL of fluid were removed, and sent for different diagnostic studies. Patient remains in atrial fibrillation, and that being addressed by cardiology. Placed on metoprolol, but she cannot tolerate anticoagulation therapy because of her GI bleeding. Labs from the peritoneal fluid are pending. Her WBC count today is 7.2 hemoglobin is 8 lites are normal renal profile is basically back to normal. And a bit reluctant to send the patient for a CT of the chest which eventually needs to be done. But she was made aware that this needs to be done most likely on outpa tient basis. Tumor markers were noted to be abnormal, her alpha-fetoprotein was 884. Otherwise her serology including PABLO antimitochondrial antibody, anti- smooth muscle antibody, liver/microsome antibody negative. CA 199 antigen was normal. Family today raise some questions about her source of GI bleeding, and I suggested that they direct that question to the dehydrator tender, I believe is most likely from the small bowel. Patient was reevaluated today on 06/30/2019, patient is doing fairly well, no further episodes of GI bleeding. Her EGD and colonoscopy showed gastritis and esophagitis and diverticulosis, but there was no evidence of active bleeding at the time of those procedures. Her bleeding is apparently an active. She is being followed by gastroenterology for her abnormal liver enzymes and questionable chronic liver disease. I have seen her for pulmonary nodules, and today considering her renal functioning is back to normal I would recommend CT of the chest with contrast, and evaluate her pulmonary nodules. All her labs were reviewed today, renal functioning is normal CBC is normal hemoglobin is holding at 8. Liver enzymes are steadily trending down and improving since she was taken off Lipitor. Her tumor markers however are elevated, alpha- fetoprotein is 881 which is quite elevated. And that is being addressed by gastroenterology, awaiting the cytology report on the paracentesis fluid. Objective - Vital Signs Vital signs: Vital Signs Temp 97.6 F 06/30/19 08:00 Pulse 61 06/30/19 08:00 Resp 17 06/30/19 08:00 BP 107/57 06/30/19 08:00 Pulse Ox 96 06/30/19 08:00 Intake & Output 06/29/19 06/30/19 06/30/19 18:59 06:59 18:59 Intake Total 1100 1000 100 Output Total 225 470 175 Balance 875 530 -75 Weight 144.8 kg Intake: IV 1100 1000 100 Sodium Chloride 0.9% 1, 1100 1000 100 000 ml @ 100 mls/hr IV . Q10H EDWIN Rx#:[id number] Output: Urine 100 470 50 Stool 125 125 Other: Voiding Method Bedside Commode Bedside Commode Bedside Commode # Voids 1 # Bowel Movements 1 1 1 - Exam Physical Exam: Revealed a 78-year-old female in no distress. Asymptomatic. Head: Atraumatic, normocephalic. HEENT:[Neck is supple.] [No neck masses.] [No thyromegaly.] [No JVD.] Chest: [Clear throughout, no crackles, no rhonchi, no wheezes.] Cardiac Exam: [Normal S1 and S2, no S3 gallop, no murmur.] Abdomen: [Obese Soft, nontender, no megaly, no rebound, no guarding, normal bowel sounds.] Abdominal wall edema is noted. Extremities: [No clubbing, 2+ bipedal edema, no cyanosis.] Neurological Exam: [No focal neurologic deficit.] Alert and oriented 3. Psychiatric: Normal mood affect and normal mental status examination. Skin: No rashes. Musculoskeletal: No joint swelling or deformity, no limitation in range of motion. Lymphatics: No lymphadenopathy. - Labs CBC & Chem 7: 06/30/19 03:59 06/30/19 03:59 Labs: Abnormal Lab Results - Last 24 Hours (Table) 06/28/19 06/30/19 06/30/19 Range/Units 04:18 03:59 03:59 RBC 2.48 L (3.80-5.40) m/uL Hgb 8.0 L (11.4-16.0) gm/dL Hct 26.8 L (34.0-46.0) % MCV 107.8 H (80.0-100.0) fL MCHC 30.1 L (31.0-37.0) g/dL RDW 18.1 H (11.5-15.5) % Lymphocytes # 0.8 L (1.0-4.8) k/uL Macrocytosis Marked A Chloride 113 H (98-107) mmol/L Carbon Dioxide 18 L (22-30) mmol/L BUN 32 H (7-17) mg/dL Glucose 110 H (74-99) mg/dL Calcium 7.9 L (8.4-10.2) mg/dL Total Bilirubin 5.2 H (0.2-1.3) mg/dL AST 365 H (14-36) U/L ALT 133 H (9-52) U/L Alkaline Phosphatase 292 H (38-126) U/L Total Protein 5.6 L (6.3-8.2) g/dL Albumin 2.6 L (3.5-5.0) g/dL Albumin (PEP) 2.54 L (3.80-4.90) g/dL Eeybk-8-Lfsnecjkl 0.45 H (0.10-0.40) g/dL Ogrqu-4-Binpbqslykq 247.0 H (99.0-242.0) mg/dL Lipase 604 H (23-300) U/L Microbiology - Last 24 Hours (Table) 06/28/19 15:46 Gram Stain - Preliminary Ascites Fluid Body Fluid Culture - Preliminary Assessment and Plan Assessment: Impression: 1 acute GI bleeding, likely small bowel source considering that EGD and colonoscopy were negative. Being addressed by gastroenterology on the case. 2 abnormal liver enzymes, could be secondary to statin. Drug induced hepatitis. Hence Lipitor was discontinued. Further workup was reviewed, patient has elevated alpha-fetoprotein otherwise all studies were negative. 3 acute kidney injury secondary to hypotension, dee inhibitors and diuretics. Back to normal. Renal functioning. 4 hypotension, hypovolemia, resolved. 5 morbid obesity 6 mild to moderate pulmonary hypertension 7 chronic cor pulmonale 8 nonspecific pulmonary nodules, however considering the normal renal profile, I would proceed with CT of the chest with contrast. 9 coronary artery disease and previous [place] 10 hyperlipidemia Recommendation: Continue present supportive care measures. Continue IV fluids . Awaiting results of the cytology from the paracentesis. CT of the chest with contrast was ordered today. 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 Updated her family and the patient on her condition, and the plan to proceed with CT of the chest with contrast. We'll continue to follow, patient could be transferred out of the ICU to a regular medical floor. Time with Patient: Less than 30
--- NOTE | 2019-06-30 13:04 | CT ---
EXAMINATION TYPE: CT chest wo con DATE OF EXAM: 06/30/2019 COMPARISON: CT scan 06/26/2019 HISTORY: No chest complaints at time of scan. CT DLP: 940.3 mGycm. Automated Exposure Control for Dose Reduction was Utilized. TECHNIQUE: CT scan of the thorax is performed without IV contrast. FINDINGS: LUNGS: There are numerous bilateral pulmonary nodules the majority which are subcentimeter. The large st is seen within the right lower lobe appear stable from the previous exam measuring approximately 2 .6 x 1.8 cm. PET scan suggested. Small left pleural effusion with subsegmental areas of consolidation most typical of atelectasis. No pneumothorax. MEDIASTINUM: Lack of IV contrast is noted to limit evaluation for mediastinal and especially hilar ad enopathy. There are no definitive greater than 1 cm hilar or mediastinal lymph nodes. The heart is en larged and there is coronary artery calcifications. Aorta of normal caliber with atherosclerotic hanna ges.. OTHER: Diffuse subcutaneous edema noted and there is a small amount of fluid within the abdominal cavity com patible with ascites. Nodular pattern to the liver is associated with hepatic cirrhosis correlate cli nically. White portions of the liver are included on the exam. In the dome of the liver there is an area of low attenuation which could be artifactual. Correlate wi th ultrasound. Nodular density seen adjacent to left adrenal gland appears to be tubular on the coron al view most likely is vascular. This is stable from the recent CT of the abdomen could represent abdulaziz ices. Assessment is limited without contrast. Hypertrophic and degenerative change of the vertebral c olumn. Mild prominence the right lobe thyroid which can be correlated with ultrasound to assess for t hyroid nodularity. IMPRESSION: 1. Numerous bilateral pulmonary nodules the overwhelming majority which are subcentimeter. Although t hese may be postinflammatory, a neoplastic process is also in the differential diagnosis. The largest is seen in the posterior segment right lower lobe measuring 2.6 x 1.8 cm and may contain air broncho grams. PET scan is suggested. 2. Anasarca 3. Small amount of ascites with nodular pattern to the liver highly suggestive of hepatic cirrhosis. Vague attenuation near the dome of the liver most likely is artifactual but could be correlated with ultrasound to exclude neoplasm.
--- NOTE | 2019-06-30 19:47 | PN ---
PROGRESS NOTE DATE OF DICTATION: 06/30/2019 Patient is a 78-year-old pleasant white female admitted to the hospital with acute GI bleed, underwent EGD and colonoscopy by the surgical service. While in the hospital she was noted to have acute elevation of serum transaminases with ALT and AST in the 500s range and bilirubin up to 6.1. She does not have any history of chronic liver disease. Workup for chronic liver disease has been negative. She did have some ascites. She underwent diagnostic paracentesis and paracentesis fluid revealed serum ascitic albumin gradient more than 1.1, suggestive of possible liver disease causing the ascites. She was also noted to have elevated alpha-fetoprotein and MRI of the liver was ordered, but because of the patient's size, the imaging study had to be canceled. In the meantime, patient continues to do well. She reports no new symptoms. No abdominal pain. No nausea or vomiting. PHYSICAL EXAMINATION: Appears comfortable. No apparent distress. VITAL SIGNS: Stable. Blood pressure is 89/50, pulse rate 58, temperature 97.7. HEENT examination unremarkable. Conjunctivae pink. Sclerae icteric. Oral cavity no lesions. NECK: No JVD or lymph node enlargement. CHEST: Clear to auscultation. HEART: Regular rate and rhythm. ABDOMEN: Soft. Slightly distended. Bowel sounds are positive. No organomegaly. EXTREMITIES: No pedal edema. SKIN: No rashes. NEUROLOGIC: Alert and oriented x3. No focal deficits. LABS: Today T-bilirubin is down to 5.2, AST 365, ALT 133, alkaline phosphatase 292. Cytology from the fluid is still pending. Hemoglobin 8, WBC 8, platelets 259. IMPRESSION: 1. Acute gastrointestinal bleed, resolved. 2. Elevated liver function tests and jaundice. Most likely we are dealing with chronic liver disease with superimposed acute hepatitis-like picture. Hepatitis serologies for A, B and C were negative. Autoimmune workup was negative. Possibility of right-sided passive venous congestion causing some of her elevated transaminases and cholestasis also needs to be considered. Recent echocardiogram showed right-sided heart failure with pulmonary hypertension. 3. Ascites, status post paracentesis for diagnostic purposes; fluid consistent with portal hypertension, probably from underlying chronic liver disease. 4. Right-sided heart failure. 5. Morbid obesity. 6. Acute kidney injury. RECOMMENDATIONS: 1. Repeat LFTs in the morning. 2. Avoid hepatotoxic medications and continue to hold the Lipitor. 3. Will consider an open MRI of the liver to investigate the alpha-fetoprotein. 4. Await the fluid cytology results. 5. Discussed at length regarding further management with the patient's family who was at the bedside. Thank you for this consultation. SABRINA / JOEY: [id number] /
--- NOTE | 2019-06-30 21:37 | P.PN ---
Subjective Progress Note Date: 06/30/19 No further episodes of rectal bleeding, hemoglobin 8.2. Maintained on IV fluids and Levophed drip. Renal function improving, creatinine down to 1.16. Elevated LFTs, bilirubin 6.1, AST 6:30, ALT 169, alk phos 257-GI consulted with recommendations pending. Borderline hypotension with systolic blood pressures in the 90s to low 100s. Maintaining O2 sats of high 90s on 3 L nasal cannula. Denies nausea, vomiting or diarrhea. Denies abdominal pain. Abdomen/pelvis CT reporting multiple bilateral pulmonary nodules greater on the right possible neoplasm, small bilateral pleural effusions, ascites, somewhat thickening of ascending colon, patchy density within the liver, nonspecific .Evaluated by surgery with no further surgical intervention recommended at this time. 06/28/2019 no further bleeding, hemoglobin stable,8.0. VSS, Levophed weaned off since early this am. T bili , LFTs remain elevated. Evaluated by GI, recommendations noted. Liver serologies pending, diagnostic paracentesis/fluid analysis recommended. AFP elevated 881.4. Pulmonary recommending further workup outpatient regarding pulmonary nodules reported on CT. Afebrile, normal WBC. Renal function improving, creatinine down to 1. 06/29/2019 Last night developed new onset atrial fibrillation with RVR, received metoprol, heart rate currently in the 120s. Echo reporting normal LV function, EF 55-60% Hemoglobin 8. No anticoagulation secondary to GI bleed. Underwent paracentesis yesterday with 200 MLS peritoneal serous fluid drained, cultures/labs pending. AFP elevated 881. Afebrile, normal WBC. Renal function continued to improve, creatinine down to 0.85. T bili/LFTs remain elevated. 06/30. CT chest with multiple nodules, awaiting liver imaging and paracentesis fluid analysis. Pt denies chest pain, dyspnea, abdominal pain. Hgb stable. Objective - Vital Signs Vital signs: Vital Signs Temp 97.7 F 06/30/19 16:00 Pulse 58 L 06/30/19 16:00 Resp 24 06/30/19 16:00 BP 89/50 06/30/19 16:00 Pulse Ox 95 06/30/19 16:00 Intake & Output 06/30/19 06/30/19 07/01/19 06:59 18:59 06:59 Intake Total 1000 100 Output Total 470 215 Balance 530 -115 Weight 144.8 kg Intake: IV 1000 100 Sodium Chloride 0.9% 1, 1000 100 000 ml @ 100 mls/hr IV . Q10H EDWIN Rx#:[id number] Output: Drainage 30 Right Lower Lateral 30 Abdomen Urine 470 60 Stool 125 Other: Voiding Method Bedside Commode Bedside Commode # Voids 1 # Bowel Movements 1 1 - Exam Gen: well developed, well nourished, NAD HEENT: mucus membranes moist CV: RRR, no murmur Lungs: clear throughout Abd: soft, distended, mild epigastric tenderness Ext: no edema - Labs CBC & Chem 7: 06/30/19 03:59 06/30/19 03:59 Labs: Abnormal Lab Results - Last 24 Hours (Table) 06/30/19 06/30/19 Range/Units 03:59 03:59 RBC 2.48 L (3.80-5.40) m/uL Hgb 8.0 L (11.4-16.0) gm/dL Hct 26.8 L (34.0-46.0) % MCV 107.8 H (80.0-100.0) fL MCHC 30.1 L (31.0-37.0) g/dL RDW 18.1 H (11.5-15.5) % Lymphocytes # 0.8 L (1.0-4.8) k/uL Macrocytosis Marked A Chloride 113 H (98-107) mmol/L Carbon Dioxide 18 L (22-30) mmol/L BUN 32 H (7-17) mg/dL Glucose 110 H (74-99) mg/dL Calcium 7.9 L (8.4-10.2) mg/dL Total Bilirubin 5.2 H (0.2-1.3) mg/dL AST 365 H (14-36) U/L ALT 133 H (9-52) U/L Alkaline Phosphatase 292 H (38-126) U/L Total Protein 5.6 L (6.3-8.2) g/dL Albumin 2.6 L (3.5-5.0) g/dL Lipase 604 H (23-300) U/L Microbiology - Last 24 Hours (Table) 06/28/19 15:46 Gram Stain - Preliminary Ascites Fluid Body Fluid Culture - Preliminary Assessment and Plan (1) Demand ischemia Current Visit: Yes Status: Acute Code(s): I24.8 - OTHER FORMS OF ACUTE ISCHEMIC HEART DISEASE SNOMED Code(s): 249118308 (2) Elevated LFTs Current Visit: Yes Status: Acute Code(s): R94.5 - ABNORMAL RESULTS OF LIVER FUNCTION STUDIES SNOMED Code(s): 049814854 (3) Coronary artery disease involving [place] coronary artery Current Visit: Yes Status: Acute Code(s): I25.10 - ATHSCL HEART DISEASE OF [place] CORONARY ARTERY W/O ANG PCTRS SNOMED Code(s): 7744137453393 (4) History of [place] (myocardial infarction) Current Visit: Yes Status: Acute Code(s): I25.2 - OLD MYOCARDIAL INFARCTION SNOMED Code(s): 444354554 (5) Hypertension Current Visit: Yes Status: Acute Code(s): I10 - ESSENTIAL (PRIMARY) HYPERTENSION SNOMED Code(s): 90833515 (6) Hyperlipidemia Current Visit: Yes Status: Acute Code(s): E78.5 - HYPERLIPIDEMIA, UNSPECIFIED SNOMED Code(s): 71938455 (7) Acute GI bleeding Current Visit: Yes Status: Acute Code(s): K92.2 - GASTROINTESTINAL HEMORRHAGE, UNSPECIFIED SNOMED Code(s): 12540958 (8) Anemia Current Visit: Yes Status: Acute Code(s): D64.9 - ANEMIA, UNSPECIFIED SNOMED Code(s): 774858589 (9) Elevated troponin Current Visit: Yes Status: Acute Code(s): R79.89 - OTHER SPECIFIED ABNORMAL FINDINGS OF BLOOD CHEMISTRY SNOMED Code(s): 036872865 Plan: Continue current medications and treatments. Continue GI workup of her elevated LFTs and AFP. Consider open MRI. Continue protonix bid
[2019-07-01] MEDS: METOPROLOL TARTRATE 25 MG TAB PO SCH ×2 (08:31→20:38)
[2019-07-01] MEDS: LEVOTHYROXINE 112 MCG TAB PO SCH (08:31)
[2019-07-01] MEDS: NOREPINEPHRINE 4 MG in SODIUM CHLORIDE 0.9% 250 ML IV SCH (08:34)
[2019-07-01] MEDS: LOSARTAN-HCTZ 50-12.5 MG 1 EACH TAB PO SCH (08:39)
[2019-07-01] MEDS: PANTOPRAZOLE 40 MG TABLET PO SCH ×2 (08:44→17:37)
[2019-07-01 09:33] LABS: Albumin 2.8 g/dL (3.5-5.0); Calcium 8.2 mg/dL (8.4-10.2); Total Bilirubin 5.5 mg/dL (0.2-1.3); Total Protein 5.8 g/dL (6.3-8.2)
--- NOTE | 2019-07-01 11:51 | P.PN ---
Subjective Progress Note Date: 07/01/19 Principal diagnosis: Acute GI bleeding, multiple pulmonary nodules and a bigger right lower lobe nodule On 07/01/2019 patient is seen in follow-up on medical surgical floor. She is resting in bed, she states her abdomen is still quite distended and hard, still quite a bit of abdominal wall edema, and the paracentesis puncture site on the right abdomen is still draining clear fluid into ostomy bag that was attached to the abdominal wall. Denies any difficulty breathing at rest, however she states she needs frequent rest periods when she is ambulating or with any exertion. She is on room air, the pulse ox of 97%, respirations are nonlabored, however she does get short of breath with conversation as well, hemodynamically stable. No further episodes of bleeding overnight, today's hemoglobin is 8.0. Today's blood work has been reviewed, white count is 8.0, B1 is 37 creatinine is 1.17, liver enzymes are trending down, the lipase is increased to 822. Peritoneal flu id cytology was negative, cultures are negative. The findings of the CT chest showing numerous bilateral pulmonary nodules and a larger right lower lobe pulmonary nodule vision 2.6 cm x 1.8 cm were discussed with the patient. Patient will need outpatient PET scan, and possibility of additionalbron choscopyif is increased uptake on the PET scan. Objective - Vital Signs Vital signs: Vital Signs Temp 97.7 F 07/01/19 08:17 Pulse 66 07/01/19 08:17 Resp 14 07/01/19 08:17 BP 100/62 07/01/19 08:17 Pulse Ox 97 07/01/19 08:17 Intake & Output 06/30/19 07/01/19 07/01/19 18:59 06:59 18:59 Intake Total 100 Output Total 215 200 Balance -115 -200 Weight 146 kg Intake: IV 100 Sodium Chloride 0.9% 1, 100 000 ml @ 100 mls/hr IV . Q10H EDWIN Rx#:[id number] Output: Drainage 30 Right Lower Lateral 30 Abdomen Urine 60 200 Stool 125 Other: Voiding Method Bedside Commode Bedside Commode Toilet # Voids 1 # Bowel Movements 1 - Exam GENERAL EXAM: Alert, pleasant, 78-year-old obese white female, on room air the pulse ox of 97%, mild conversational dyspnea, comfortable in no apparent distress. HEAD: Normocephalic/atraumatic. EYES: Normal reaction of pupils, equal size. Conjunctiva pink, sclera white. NOSE: Clear with pink turbinates. THROAT: No erythema or exudates. NECK: No masses, no JVD, no thyroid enlargement, no adenopathy. CHEST: No chest wall deformity. Symmetrical expansion. LUNGS: Equal air entry with no crackles, wheeze, rhonchi or dullness. CVS: Regular rate and rhythm, normal S1 and S2, no gallops, no murmurs, no rubs ABDOMEN: Large obese, with abdominal wall edema, draining right abdominal paracentesis puncture site with the ostomy appliance in place collecting clear yellow fluid. No hepatosplenomegaly, normal bowel sounds, no guarding or rigi dity. EXTREMITIES: No clubbing, 2+ lower extremity edema, no cyanosis, 2+ pulses and upper and lower extremities. MUSCULOSKELETAL: Muscle strength and tone normal. SPINE: No scoliosis or deformity SKIN: No rashes CENTRAL NERVOUS SYSTEM: Alert and oriented -3. No focal deficits, tone is normal in all 4 extremities. PSYCHIATRIC: Alert and oriented -3. Appropriate affect. Intact judgment and insight. - Labs CBC & Chem 7: 06/30/19 03:59 07/01/19 09:00 Labs: Abnormal Lab Results - Last 24 Hours (Table) 07/01/19 Range/Units 09:00 Chloride 111 H (98-107) mmol/L Carbon Dioxide 18 L (22-30) mmol/L BUN 37 H (7-17) mg/dL Creatinine 1.17 H (0.52-1.04) mg/dL Glucose 133 H (74-99) mg/dL Calcium 8.2 L (8.4-10.2) mg/dL Total Bilirubin 5.5 H (0.2-1.3) mg/dL AST 311 H (14-36) U/L ALT 132 H (9-52) U/L Alkaline Phosphatase 277 H (38-126) U/L Total Protein 5.8 L (6.3-8.2) g/dL Albumin 2.8 L (3.5-5.0) g/dL Lipase 822 H (23-300) U/L Microbiology - Last 24 Hours (Table) 06/28/19 15:46 Gram Stain - Preliminary Ascites Fluid Body Fluid Culture - Preliminary Assessment and Plan Plan: Assessment: 1 acute GI bleeding, likely small bowel source considering that EGD and colonoscopy were negative. Being addressed by gastroenterology on the case. 2 abnormal liver enzymes, could be secondary to statin. Drug induced hepatitis. Hence Lipitor was discontinued. Further workup was reviewed, patient has elevated alpha-fetoprotein otherwise all studies were negative. 3 acute kidney injury secondary to hypotension, dee inhibitors and diuretics. Back to normal. Renal functioning. 4 hypotension, hypovolemia, resolved. 5 morbid obesity 6 mild to moderate pulmonary hypertension 7 chronic cor pulmonale 8 nonspecific pulmonary nodules, however considering the normal renal profile, I would proceed with CT of the chest with contrast. 9 coronary artery disease and previous ME 10 hyperlipidemia 11 generalized edema and anasarca Plan: Continue current medical treatment, there has been no recurrence of GI bleeding, hemodynamically stable, still has generalized anasarca, abdominal wall edema, and lower extremity edema, Lasix will be added at 20 mg daily, repeat elect rolytes and renal profile tomorrow. CT chest results have been discussed with the patient by Dr. Santana, she will need outpatient PET scan after discharge and if it shows increased uptake she will need a bronchoscopy with biopsies I performed a history & physical examination of the patient and discussed their management with my nurse practitioner, Mickie Holbrook. I reviewed the nurse practitioner's note and agree with the documented findings and plan of care. Lung sounds are positive for clear breath sounds. The findings and the impression was discussed with the patient. I attest to the documentation by the nurse practitioner. Time with Patient: Less than 30
[2019-07-01] MEDS: HYDROcodone/APAP 5-325MG 1 EACH TAB PO PRN ×2 (12:22→18:14)
[2019-07-01] MEDS: FUROSEMIDE 10 MG/ML 2 ML VIAL IV SCH (12:24)
[2019-07-01] MEDS: ONDANSETRON 4 MG/2 ML VIAL IVP PRN (12:29)
--- NOTE | 2019-07-01 23:59 | P.PN ---
Subjective Progress Note Date: 07/01/19 No further episodes of rectal bleeding, hemoglobin 8.2. Maintained on IV fluids and Levophed drip. Renal function improving, creatinine down to 1.16. Elevated LFTs, bilirubin 6.1, AST 6:30, ALT 169, alk phos 257-GI consulted with recommendations pending. Borderline hypotension with systolic blood pressures in the 90s to low 100s. Maintaining O2 sats of high 90s on 3 L nasal cannula. Denies nausea, vomiting or diarrhea. Denies abdominal pain. Abdomen/pelvis CT reporting multiple bilateral pulmonary nodules greater on the right possible neoplasm, small bilateral pleural effusions, ascites, somewhat thickening of ascending colon, patchy density within the liver, nonspecific .Evaluated by surgery with no further surgical intervention recommended at this time. 06/28/2019 no further bleeding, hemoglobin stable,8.0. VSS, Levophed weaned off since early this am. T bili , LFTs remain elevated. Evaluated by GI, recommendations noted. Liver serologies pending, diagnostic paracentesis/fluid analysis recommended. AFP elevated 881.4. Pulmonary recommending further workup outpatient regarding pulmonary nodules reported on CT. Afebrile, normal WBC. Renal function improving, creatinine down to 1. 06/29/2019 Last night developed new onset atrial fibrillation with RVR, received metoprol, heart rate currently in the 120s. Echo reporting normal LV function, EF 55-60% Hemoglobin 8. No anticoagulation secondary to GI bleed. Underwent paracentesis yesterday with 200 MLS peritoneal serous fluid drained, cultures/labs pending. AFP elevated 881. Afebrile, normal WBC. Renal function continued to improve, creatinine down to 0.85. T bili/LFTs remain elevated. 06/30. CT chest with multiple nodules, awaiting liver imaging and paracentesis fluid analysis. Pt denies chest pain, dyspnea, abdominal pain. Hgb stable. 07/01. Pt complains that her abdomen is tense and her paracentesis site is draining clear fluid. She is comfortable at rest but becomes short of breath with activity. Her CT yesterday did reveal pulmonary nodules and she is recommended to have a PET scan after discharge. She is scheduled to have her liver MRI tomorrow. Objective - Vital Signs Vital signs: Vital Signs Temp 97.6 F 07/01/19 20:33 Pulse 61 07/01/19 20:33 Resp 18 07/01/19 20:33 BP 103/58 07/01/19 20:33 Pulse Ox 94 L 07/01/19 20:33 Intake & Output 07/01/19 07/01/19 07/02/19 06:59 18:59 06:59 Intake Total 802 Output Total 200 0 Balance -200 802 Weight 146 kg Intake: Oral 802 Output: Drainage 0 Right Lower Lateral 0 Abdomen Urine 200 Other: Voiding Method Bedside Commode Toilet Toilet # Voids 2 1 # Bowel Movements 2 1 - Exam Gen: well developed, well nourished, NAD HEENT: mucus membranes moist CV: RRR, no murmur Lungs: clear throughout Abd: soft, distended, mild epigastric tenderness. R lateral abdomen with ostomy bag with 100 ml clear fluid draining Ext: no edema - Labs CBC & Chem 7: 06/30/19 03:59 07/01/19 09:00 Labs: Abnormal Lab Results - Last 24 Hours (Table) 07/01/19 Range/Units 09:00 Chloride 111 H (98-107) mmol/L Carbon Dioxide 18 L (22-30) mmol/L BUN 37 H (7-17) mg/dL Creatinine 1.17 H (0.52-1.04) mg/dL Glucose 133 H (74-99) mg/dL Calcium 8.2 L (8.4-10.2) mg/dL Total Bilirubin 5.5 H (0.2-1.3) mg/dL AST 311 H (14-36) U/L ALT 132 H (9-52) U/L Alkaline Phosphatase 277 H (38-126) U/L Total Protein 5.8 L (6.3-8.2) g/dL Albumin 2.8 L (3.5-5.0) g/dL Lipase 822 H (23-300) U/L Microbiology - Last 24 Hours (Table) 06/28/19 15:46 Gram Stain - Preliminary Ascites Fluid Body Fluid Culture - Preliminary Assessment and Plan (1) Demand ischemia Current Visit: Yes Status: Acute Code(s): I24.8 - OTHER FORMS OF ACUTE ISCHEMIC HEART DISEASE SNOMED Code(s): 535356254 (2) Elevated LFTs Current Visit: Yes Status: Acute Code(s): R94.5 - ABNORMAL RESULTS OF LIVER FUNCTION STUDIES SNOMED Code(s): 930087577 (3) Coronary artery disease involving [place] coronary artery Current Visit: Yes Status: Acute Code(s): I25.10 - ATHSCL HEART DISEASE OF [place] CORONARY ARTERY W/O ANG PCTRS SNOMED Code(s): 7617889328253 (4) History of [place] (myocardial infarction) Current Visit: Yes Status: Acute Code(s): I25.2 - OLD MYOCARDIAL INFARCTION SNOMED Code(s): 607601625 (5) Hypertension Current Visit: Yes Status: Acute Code(s): I10 - ESSENTIAL (PRIMARY) HYPERTENSION SNOMED Code(s): 94865778 (6) Hyperlipidemia Current Visit: Yes Status: Acute Code(s): E78.5 - HYPERLIPIDEMIA, UNSPECIFIED SNOMED Code(s): 48838440 (7) Acute GI bleeding Current Visit: Yes Status: Acute Code(s): K92.2 - GASTROINTESTINAL HEMORRHAGE, UNSPECIFIED SNOMED Code(s): 45137660 (8) Anemia Current Visit: Yes Status: Acute Code(s): D64.9 - ANEMIA, UNSPECIFIED SNOMED Code(s): 127674109 (9) Elevated troponin Current Visit: Yes Status: Acute Code(s): R79.89 - OTHER SPECIFIED ABNORMAL FINDINGS OF BLOOD CHEMISTRY SNOMED Code(s): 101227959 Plan: 1. GI bleed. EGD and colonoscopy showed only esophagitis. Hgb stable 2. Elevated LFTs, suspect congestive hepatitis. GI consulted. AFP elevated. Liver MRI scheduled 07/02 3. Anasarca, hypoalbuminemia. Leg swelling. Add lasix today 4. Pulmonary nodules. Outpatient PET scan after discharge
[2019-07-02] MEDS: LEVOTHYROXINE 112 MCG TAB PO SCH (03:43)
[2019-07-02] MEDS: SODIUM CHLORIDE 0.9% 1,000 ML IV SCH ×2 (03:44→18:16)
[2019-07-02 07:45] LABS: Anisocytosis Slight; HCT 27.6 % (34.0-46.0); HGB 8.1 gm/dL (11.4-16.0); Hypochromasia Marked; MCH 32.3 pg (25.0-35.0); MCHC 29.5 g/dL (31.0-37.0); MCV 109.5 fL (80.0-100.0); Macrocytosis Marked; Mean Platelet Volume 6.7; Platelet Count 314 k/uL (150-450); RBC 2.52 m/uL (3.80-5.40); RDW 17.8 % (11.5-15.5); WBC 15.9 k/uL (3.8-10.6)
[2019-07-02 07:59] LABS: Calcium 8.5 mg/dL (8.4-10.2); Potassium 4.5 mmol/L (3.5-5.1)
[2019-07-02] MEDS: PANTOPRAZOLE 40 MG TABLET PO SCH ×2 (09:14→18:03)
[2019-07-02] MEDS: FUROSEMIDE 10 MG/ML 2 ML VIAL IV SCH (09:15)
[2019-07-02] MEDS: METOPROLOL TARTRATE 25 MG TAB PO SCH ×2 (09:18→21:31)
--- NOTE | 2019-07-02 09:40 | PN ---
PROGRESS NOTE DATE OF DICTATION: July 02, 2019. REQUESTING PHYSICIAN: Dr. Gregor Noonan The patient is a 78-year-old pleasant white female admitted to hospital with acute GI bleed and underwent endoscopy intervention and was noted to have gastritis. While in the hospital, she was noted to have elevated serum transaminases and jaundice with a bilirubin of 6.1. She had workup done for chronic liver disease and so far all the workup has been negative. The patient has no prior history of chronic liver disease. Hepatitis serologies for A, B and C were negative. On repeat workup she was noted to have elevated alpha fetoprotein at 890. She did have a CT of the abdomen and pelvis done without contrast at the time of admission the hospital, which showed heterogeneous appearing liver. She did have a CT of the chest done yesterday that showed multiple pulmonary nodules, evidence of cirrhotic appearing liver, small amount of ascites in the abdominal cavity and also there was low attenuation on the dome of the liver but that could not be seen well on the CT of the chest. She did have new onset ascites. She underwent diagnostic paracentesis and the ascitic fluid is consistent with portal hypertension. Cytology was negative. The patient continues to complain of weakness, fatigue, tiredness, abdominal tightness from leakage from the paracentesis site. She denies any nausea, vomiting. No bleeding. PHYSICAL EXAMINATION: She appears comfortable. No apparent distress. VITAL SIGNS: Stable. Blood pressure is 96/61, pulse is 63, temperature 97.6. HEENT examination unremarkable. Conjunctivae pink. Sclerae anicteric. Oral cavity no lesions. NECK: No JVD or lymph node enlargement. CHEST: The chest was clear to auscultation. HEART: Regular rate and rhythm. ABDOMEN: Obese. There was subcutaneous edema noted on the anterior abdominal wall. There was small amount of fluid that was leaking at the site of the paracentesis in the right upper quadrant area where there was a small colostomy bag in place. EXTREMITIES: 2+ pedal edema. SKIN: No rashes. NEUROLOGIC: Alert and oriented x3. No focal deficits. LABS: From today WBC 15.9, hemoglobin 8.1, platelets 314. BUN is 42, creatinine 1.76. Labs from yesterday: AST is down to 311, ALT 132, alkaline phosphatase 277, T-bilirubin is 5.5, lipase is 822. IMPRESSION: 1. Elevated LFTs and jaundice since hospitalization in this lady who has no history of chronic liver disease. All workup for chronic liver disease has been negative. The recent CT imaging studies, CT of the chest showed a nodular appearing liver consistent with liver cirrhosis. It appears most likely dealing with liver cirrhosis with decompensation that most likely could be as a result of ongoing right-sided congestive heart failure or she may have a component of medication induced hepatitis. Her serum transaminases are gradually improving. 2. Elevated alpha fetoprotein to rule out hepatocellular carcinoma. Patient is scheduled for an MRI of the liver later today. 3. Elevated BUN and creatinine. 4. Leukocytosis. 5. Mild anemia, she has stable hemoglobin status post EGD and colonoscopy to at the time of admission the hospital that was unremarkable other than gastritis. RECOMMENDATIONS: 1. Continue with Lasix 20 mg daily. 2. Low-salt diet. 3. Await MRI of the liver today. 4. Repeat labs in the morning and will follow with you closely during the hospital stay. Thank you for this consultation. SABRINA / BRYANN: [id number] /
[2019-07-02 11:14] LABS: Amorphous Sediment,Urine Rare /hpf; Appearance,Urine Turbid (Clear); Bilirubin,Urine 2+ (Negative); Blood,Urine Moderate (Negative); Color,Urine Dark Brown; Glucose,Urine (UA) Trace (Negative); Hyaline Casts,Urine 79 /lpf (0-2); Ketones,Urine Negative (Negative); Leukocyte Esterase,Urine Moderate (Negative); Mucus,Urine Many /hpf; Nitrite,Urine Negative (Negative); PH, Urine 5.5 (5.0-8.0); Protein,Urine 3+ (Negative); RBC,Urine >182 /hpf (0-5); Specific Gravity,Urine 1.025 (1.001-1.035); Squamous Epithelial Cell,Urine 20 /hpf (0-4)
--- NOTE | 2019-07-02 14:45 | P.PN ---
Subjective Progress Note Date: 07/02/19 Principal diagnosis: Acute GI bleed, hypovolemic shock. Covering for Dr. Noonan over the weekend. Ms. Quintero is a 78-year-old female with a past medical history of coronary arter y disease, asthma, hypertension, hyperlipidemia who presented initially to the hospital with 3 week history of melena and hematochezia. She was noticed to have increased dyspnea and chest discomfort. Patient eventually had a large bloody bowel movement and came into the ED. Patient had an EGD and colonoscopy showing esophagitis and diverticulosis. Patient also had acute kidney injury and she was started on IV fluids. Later on developed difficulty in breathing and was sent to the ICU. In the ICU patient was placed on pressors and eventually with blood pressure improvement she was sent back to the floors. Patient also had abnormal LFTs and eventually had a CAT scan of the abdomen and pelvis showing patchy densities in the liver along with multiple bilateral pulmonary nodules. She also had a CT of the chest showing a large right lower lobe nodule measuring 2.6 x 1.3 cm along with anasarca and nodular pattern of the liver showing hepatic cirrhosis. Her hepatitis A serology for A, B, and C were negative but her AFP was high at 890. Patient also had paracentesis done with ascetic fluid consistent with portal hypertension and cytology was negative. Today the patient is lying comfortably in the bed. She complains of generalized weakness and fatigue related patient is currently nothing by mouth as she has been scheduled for an open MRI of the abdomen and pelvis. On review ing her labs patient's creatinine has been elevated to 1.7 this morning. Nursing staff reports that the patient's urine output has decreased over the past 12 hours. She produced only 200-300 mL of urine. She also complains of increased swelling in her lower extremities and also increased girth of her abdomen. She has mild discomfort in her right upper quadrant. She denies having any chest discomfort. No nausea or vomiting. Has decreased appetite. She denies having any bloody bowel movements. She reports a lot of fluid seeping from her bili and lower extremities. She also complains of redness in the right side of her abdomen along with mild itching near the are where the paracentesis was done. On reviewing the patient's labs from this morning there is an increase in white count to 15.9 and also the patient's urine analysis was showing leukocyte Estrace with 149 WBCs. Patient's creatinine now also jumped up from 1.17-1.76 this morning. Patient's albumin is low at 2.8. patient's medications have been reviewed : Active Medications Hydrocodone Bitart/Acetaminophen ([place] 5-325) 1 each PO Q6HR PRN PRN Reason: Pain Last Admin: 07/01/19 18:14 Dose: 1 each Documented by: Alprazolam (Xanax) 0.25 mg PO ONCE PRN PRN Reason: Anxiety Furosemide (Lasix) 20 mg IV DAILY [facility] Last Admin: 07/02/19 09:15 Dose: 20 mg Documented by: Sodium Chloride (Saline 0.9%) 1,000 mls @ 75 mls/hr IV .[id number] [facility] Last Admin: 07/02/19 03:44 Dose: 75 mls/hr Documented by: Ceftriaxone Sodium 1 gm/ (Sodium Chloride) 50 mls @ 100 mls/hr IVPB Q24HR [facility] Last Admin: 07/02/19 13:37 Dose: 100 mls/hr Documented by: Levothyroxine Sodium (Synthroid) 224 mcg PO 0630 [facility] Last Admin: 07/02/19 03:43 Dose: Not Given Documented by: Metoprolol Tartrate (Lopressor) 25 mg PO BID [facility] Last Admin: 07/02/19 09:18 Dose: Not Given Documented by: Miscellaneous Information (Potassium Per Protocol) 1 each MISCELLANE DAILY PRN; Protocol PRN Reason: Per Protocol Naloxone HCl (Narcan) 0.2 mg IV Q2M PRN PRN Reason: Opioid Reversal Ondansetron HCl (Zofran) 4 mg IVP Q8HR PRN PRN Reason: Nausea And Vomiting Last Admin: 07/01/19 12:29 Dose: 4 mg Documented by: Pantoprazole Sodium (Protonix) 40 mg PO AC-BID [facility] Last Admin: 07/02/19 09:14 Dose: Not Given Documented by: Objective - Vital Signs Vital signs: Vital Signs Temp 97.6 F 07/02/19 07:00 Pulse 63 07/02/19 07:00 Resp 17 07/02/19 07:00 BP 96/61 07/02/19 07:00 Pulse Ox 97 07/02/19 07:00 Intake & Output 1107/02/19 07/02/19 18:59 06:59 18:59 Intake Total 802 225 Output Total 90 Balance 712 225 Weight 145.5 kg Intake: Intake, IV Titration 225 Amount Sodium Chloride 0.9% 1, 225 000 ml @ 75 mls/hr IV . [id number] [facility] Rx#:[id number] Oral 802 Output: Drainage 0 Right Lower Lateral 0 Abdomen Urine 90 Straight 20 Other: Voiding Method Toilet Toilet Toilet # Voids 2 1 # Bowel Movements 2 1 - Exam GENERAL EXAM: mild conversational dyspnea, comfortable in no apparent distress. HEAD: Normocephalic/atraumatic. EYES: Normal reaction of pupils, equal size. Conjunctiva - mild pallor , No evident Icterus NECK: No masses, no JVD, no thyroid enlargement, no adenopathy. CHEST: No chest wall deformity. . LUNGS: Equal air entry bilaterally. Decrease BS in the lower lobes. CVS: S 1 and S 2 heard. ABDOMEN: Large obese, with abdominal wall edema, draining right abdominal paracentesis puncture site with the ostomy appliance in place collecting clear yellow fluid. BS - nomral. Difficult to appreciate organomegaly. EXTREMITIES: Pinkish in colr with chronic edematous changes. No clubbing, 2+ lower extremity edema, no cyanosis MUSCULOSKELETAL: Diffuse weakness SKIN: Skin on the RUQ of negro abdomen - redness . ear;y signs of cellulitis/ dependent Edema. CENTRAL NERVOUS SYSTEM: Alert and oriented -3. No focal deficits PSYCHIATRIC: Appropriate affect. Intact judgment and insight. - Labs CBC & Chem 7: 07/02/19 06:25 07/02/19 06:25 Labs: Abnormal Lab Results - Last 24 Hours (Table) 07/02/19 07/02/19 07/02/19 Range/Units 06:25 06:25 10:39 WBC 15.9 H (3.8-10.6) k/uL RBC 2.52 L (3.80-5.40) m/uL Hgb 8.1 L (11.4-16.0) gm/dL Hct 27.6 L (34.0-46.0) % MCV 109.5 H (80.0-100.0) fL MCHC 29.5 L (31.0-37.0) g/dL RDW 17.8 H (11.5-15.5) % Macrocytosis Marked A Chloride 110 H (98-107) mmol/L Carbon Dioxide 16 L (22-30) mmol/L BUN 42 H (7-17) mg/dL Creatinine 1.76 H (0.52-1.04) mg/dL Glucose 103 H (74-99) mg/dL Urine Appearance Turbid H (Clear) Urine Protein 3+ H (Negative) Urine Glucose (UA) Trace H (Negative) Urine Blood Moderate H (Negative) Urine Bilirubin 2+ H (Negative) Ur Leukocyte Esterase Moderate H (Negative) Urine RBC >182 H (0-5) /hpf Urine WBC 149 H (0-5) /hpf Ur Squamous Epith Cells 20 H (0-4) /hpf Amorphous Sediment Rare H (None) /hpf Hyaline Casts 79 H (0-2) /lpf Urine Mucus Many H (None) /hpf Assessment and Plan Assessment: ASSESSMENT Acute GI bleed Urinary tract infection Hypovolemic shock- resolved Acute kidney injury- creatinine trending up with decreased urine output Abnormal LFTs Pulmonary nodules Mild to moderate pulmonary hypertension Morbid obesity Ascites with cirrhosis of the liver Elevated alpha-fetoprotein level Coronary artery disease with previous history of NM Hypoalbuminemia Anasarca PLAN: Patient has been started on ceftriaxone for her UTI. Patient's creatinine has been trending up , her IV Lasix has been discontinued in view of her low blood pressure this morning. Will consult nephrology. Patient is scheduled for an MRI of the abdomen this afternoon. Will check a lactic acid level. Continue with the rest of her medication regimen. Patient will be given are bolus of 500 mL of normal saline, him and after that if the patient is hypotensive, will transfer the patient to the ICU. Overall prognosis guarded, which was explained to the family members. The treatment plan was discussed in detail with the patient her and son at bedside in detail today.
[2019-07-02] MEDS ORDERED: SODIUM CHLORIDE 0.9% 500 ML 500 ML IV ONE (15:04)
[2019-07-02] MEDS ORDERED: MORPHINE SULFATE 2 MG/ML SYRINGE IVP PRN (19:57)
[2019-07-02] MEDS: ONDANSETRON 4 MG/2 ML VIAL IVP PRN (21:12)
[2019-07-02] MEDS ORDERED: METOPROLOL TARTRATE 12.5 MG TAB PO STA (22:52)
[2019-07-03] MEDS: SODIUM CHLORIDE 0.9% 1,000 ML IV SCH (03:03)
[2019-07-03] MEDS: LEVOTHYROXINE 112 MCG TAB PO SCH (06:01)
[2019-07-03 06:35] LABS: Albumin 2.9 g/dL (3.5-5.0); Calcium 8.7 mg/dL (8.4-10.2); Potassium 4.5 mmol/L (3.5-5.1); Total Bilirubin 6.6 mg/dL (0.2-1.3); Total Protein 6.2 g/dL (6.3-8.2)
[2019-07-03 06:36] LABS: Anisocytosis Slight; Basophils % (A) 0 %; Eosinophils # (A) 0.1 k/uL (0-0.7); Eosinophils % (A) 1 %; HCT 27.2 % (34.0-46.0); HGB 8.2 gm/dL (11.4-16.0); Hypochromasia Marked; Lymphocytes # (A) 1.1 k/uL (1.0-4.8); Lymphocytes % (A) 6 %; MCH 32.9 pg (25.0-35.0); MCHC 30.2 g/dL (31.0-37.0); MCV 108.8 fL (80.0-100.0); Macrocytosis Marked; Mean Platelet Volume 5.9; Monocytes # (A) 0.8 k/uL (0-1.0); Monocytes % (A) 4 %; Neutrophils # (A) 15.7 k/uL (1.3-7.7); Neutrophils % (A) 88 %; Platelet Count 315 k/uL (150-450); Poikilocytosis Slight; RDW 17.5 % (11.5-15.5); WBC 17.8 k/uL (3.8-10.6)
[2019-07-03 07:54] LABS: Polychromasia Present; Target Cells Present
[2019-07-03] MEDS: PANTOPRAZOLE 40 MG TABLET PO SCH ×2 (08:28→17:51)
[2019-07-03] MEDS: METOPROLOL TARTRATE 25 MG TAB PO SCH (08:28)
[2019-07-03] MEDS ORDERED: ENOXAPARIN 40 MG/0.4 ML SYRINGE SQ SCH (09:00)
--- NOTE | 2019-07-03 09:32 | P.NPCON ---
History of Present Illness - Reason for Consult Consult date: 07/03/19 acute renal failure - Chief Complaint Acute kidney injury - History of Present Illness This is 78-year-old female seen in consultation because of acute kidney injury She came in with a creatinine off 0.78 on 06/22/2019 creatinine went up to 1.89 on 06/25/2019, improved for the down to 0.85 06/29/2019 and then started to go up again and is currently is 2.1 with urine output being low although not measured. She was initially admitted with GI bleed had a colonoscopy and EGD that showed esophagitis and diverticulosis. Further she has had hypotension with blood pressures in the 70s to 90s consistently and was in the ICU on pressors. She was transfused. She was then transferred out to the medical floor. Further workup including computed tomography scan shows evidence of cirrhosis, multiple subcentimeter pulmonary nodules with one nodule being 2.6 cm. Possibility of malignancy is being considered A abdominal paracentesis was done with minimal fluid negative for any malignant cells. No dye studies. No nephrotoxic medications have been given. No nausea vomiting diarrhea no fever chills. She has mild shortness of breath and mild cough. She remains fairly ill and looks jaundiced. Her past history significant for acute TN in 1984, asthma, hypertension, diabetes for 20 years. No history of dysuria frequency no hematuria. Past Medical History Past Medical History: Asthma, Coronary Artery Disease (CAD), Cancer, Diabetes Mellitus, Hyperlipidemia, Hypertension, Myocardial Infarction (TN), Thyroid Disorder Additional Past Medical History / Comment(s): TN: 1984; CA: uterus Last Myocardial Infarction Date:: 1984 History of Any Multi-Drug Resistant Organisms: None Reported Past Surgical History: Cholecystectomy, Hysterectomy, Orthopedic Surgery Additional Past Surgical History / Comment(s): Right knee arthroplasty, hysterectomy in 2013 for uterine cancer and previous history of colonoscopy Past Anesthesia/Blood Transfusion Reactions: No Reported Reaction Smoking Status: Former smoker - Past Family History Mother Family Medical History: No Reported History, Dementia Additional Family Medical History / Comment(s): "94 & very healthy" Father Family Medical History: Cancer, Coronary Artery Disease (CAD), CVA/TIA Additional Family Medical History / Comment(s): "passed when 87" "first stoke wwhen 49"; CA: skin; nerve issues due to the war Medications and Allergies Home Medications Medication Instructions Recorded Confirmed Type Aspirin 325 mg PO HS 12/13/15 06/22/19 History Cetirizine HCl [Zyrtec] 10 mg PO DAILY 12/13/15 06/22/19 History Levothyroxine Sodium [Synthroid] 224 mcg PO QAM 12/13/15 06/22/19 History Losartan/Hydrochlorothiazide 1 tab PO DAILY 12/13/15 06/22/19 History [Losartan-Hctz 100-25 mg Tab] Multivitamins, Thera [Multivitamin] 1 tab PO QAM 12/13/15 06/22/19 History Atorvastatin [Lipitor] 10 mg PO HS 06/22/19 06/22/19 History Citalopram Hydrobromide [CeleXA] 20 mg PO HS 06/22/19 06/22/19 History Cyanocobalamin (Vitamin B-12) 5,000 mcg PO DAILY 06/22/19 06/22/19 History [Vitamin B-12] L.acidoph,Paracasei, B.lactis 1 cap PO DAILY 06/22/19 06/22/19 History [Probiotic] Magnesium Oxide 400 mg PO DAILY 06/22/19 06/22/19 History Potassium Gluconate 99 mg PO DAILY 06/22/19 06/22/19 History Allergies Allergy/AdvReac Type Severity Reaction Status Date / Time pesticide Allergy Dyspnea Verified 06/22/19 11:57 Physical Exam Vitals: Vital Signs Temp Pulse Pulse Resp BP BP BP 07/03/19 07:00 97.6 F 116 H 17 07/03/19 03:56 97.7 F 61 19 94/52 07/02/19 23:24 97.6 F 113 H 18 96/57 07/02/19 22:04 97.6 F 119 H 18 07/02/19 19:33 97.6 F 74 18 87/56 07/02/19 17:55 97.5 F L 75 17 07/02/19 15:00 97.5 F L 68 15 BP BP Pulse Ox 07/03/19 07:00 103/59 96 07/03/19 03:56 95 07/02/19 23:24 96 07/02/19 22:04 88/55 94 L 07/02/19 19:33 94 L 07/02/19 17:55 94/57 94 L 07/02/19 15:00 93/45 95 Intake and Output 07/02/19 07/03/19 07/03/19 22:59 06:59 14:59 Intake Total 775 1225 Output Total 100 140 50 Balance 675 1085 -50 Intake: Intake, IV Titration 725 975 Amount Sodium Chloride 0.9% 1, 225 975 000 ml @ 75 mls/hr IV . [id number] [facility] Rx#:[id number] Sodium Chloride 0.9% 500 500 ml 500 ml @ 999 mls/hr IV .Q31M ONE Rx#:[id number] Oral 50 250 Output: Drainage 0 Right Lower Lateral 0 Abdomen Urine 100 140 50 Other: Voiding Method Toilet Toilet # Voids 1 1 # Bowel Movements 1 Weight 145.5 kg On examination she is an obese lady who looks ill. She looks jaundiced HEENT exam no JVP lymphadenopathy thyromegaly neck is supple no facial asymmetry Lungs are clear to auscultation with good air entry bilaterally Heart sounds are unremarkable for any murmur rub gallop Abdomen soft nontender nondistended but protuberant and obese No masses are felt Extremity exam reveals moderate edema Neurologically awake alert oriented otherwise has generalized weakness. No asterixis was noted. She is able to move all her extremities Results - Lab Results Most recent lab results Calcium 8.7 mg/dL (8.4-10.2) 07/03/19 05:59 Phosphorus 4.6 mg/dL (2.5-4.5) H 06/25/19 19:17 Magnesium 2.4 mg/dL (1.6-2.3) H 06/25/19 19:17 07/03/19 05:59 07/03/19 05:59 Assessment and Plan Assessment: Impression 1. Acute kidney injury from severe hypotension blood pressures in the 70s to 90s. She is in the phase of acute tubular necrosis and expected to recover slowly if her blood pressure can be improved. Creatinine was 0.9 on 06/30/2019 and has gone up to 2.1 this morning. Urinalysis shows trace proteinuria on admission on 06/22/2019 but a repeat urinalysis on 1116 yesterday shows 3+ proteinuria RBCs 182 and WBCs greater than 140. Possibly of acute interstitial nephritis should be considered although she was not exposed to any significant medications to cause that. We will check a urinalysis by myself. Possibility of hepatorenal syndrome is considered if urine analysis is not very suggestive of a glomerular or tubular interstitial process 2. Mild degree of non-gap acidosis from acute kidney injury. Bicarb is 17 gap is 10 3. Hypotension, echocardiogram shows 55-60% ejection fraction, mild to moderate moderate pulmonary hypertension with right ventricular systolic pressure is 44 mm 4. Cirrhosis with jaundice and elevated liver enzymes, hepatitis markers negative, cause is not clear 5. GI bleed from esophagitis. 6. Diverticulosis 7. Diabetes mellitus 8. History of coronary artery disease with acute TN. Remote past 1984. 9. Pulmonary Nodules, Possible Malignancy, Recommendation 1. Will treat as HRS untill stable, 2. Will check TSH and serum cortisol to workup the hypotension. 2. Start Midrin 5 mg 3 times a day 3. Start IV albumin 25 g every 8 hours 4. Start octreotide 100 g 3 times a day. 5. Start sodium bicarb 650 qid 6. External Peña for strict I+O Thank you for the consult, robert continue to follow closely
[2019-07-03] MEDS: ALBUMIN HUMAN 25% 50 ML in EMPTY BAG 1 BAG IVPB SCH ×2 (10:41→16:16)
[2019-07-03 11:23] LABS: T4, Free (Free Thyroxine) 2.14 ng/dL (0.78-2.19)
[2019-07-03 12:12] LABS: Glucose,Whole Blood 87 mg/dL (75-99)
[2019-07-03] MEDS: OCTREOTIDE 100 MCG in SODIUM CHLORIDE 0.9% 100 ML IVPB SCH ×2 (12:26→17:50)
--- NOTE | 2019-07-03 12:32 | PN ---
PROGRESS NOTE DATE OF SERVICE: 07/03/2019 The patient is a 78 -year-old female admitted to the hospital with GI bleed and was noted to have elevated serum transaminases as well as jaundice. Workup for chronic liver disease has been negative. She was noted to have elevated alpha fetoprotein at 890 and MRI of the liver was obtained yesterday, which was done at the [facility] and report of which is not available at the time of this dictation. During this hospitalization, was diagnosed with cirrhosis of the liver on imaging studies. She continues to have persistent elevation of serum transaminases and jaundice with a bilirubin in the range of 5-6.1 g/dL. She did have workup for chronic liver disease and all of which has been negative. She also had a CT of the chest done that showed multiple lung nodules for which she was recommended to have a PET scan on an outpatient basis. Today, the patient seems somewhat lethargic. She is able to answer questions appropriately. She complains of generalized weakness. She denies any abdominal pain. No nausea, vomiting. As per the nursing staff, she had significantly decreased urine output all through the day yesterday. Nephrology was consulted and Dr. Batista evaluated the patient. She is presently being started on Sandostatin, IM Midodrine as well as albumin infusions. PHYSICAL EXAMINATION: The patient is awake, able to respond to questions appropriately. VITAL SIGNS: Blood pressure of 103/59, pulse rate 116, temperature 97. HEENT examination. Conjunctivae pink. Sclerae anicteric. Oral cavity no lesions. NECK: No JVD or lymph node enlargement. Chest was clear to auscultation. HEART: Regular rate and rhythm. ABDOMEN: Obese. Bowel sounds are positive. No organomegaly. EXTREMITIES: Trace pedal edema. SKIN: No rashes. NEURO: She is awake, oriented to name. LABS: Done today WBC 17.8, hemoglobin 8.2, platelets 315, BUN 49, creatinine 2.11, bilirubin 6.6, AST 318, ALT 126, alkaline phosphatase 295. IMPRESSION: 1. Cirrhosis of the liver with possible gradual decompensation could be complicated by right-sided congestive heart failure/medication related. All workup for chronic liver disease is negative. 2. Elevated alpha fetoprotein at 890. MRI of the liver performed yesterday, which is still pending at the time of this dictation. 3. Acute kidney injury with worsening BUN and creatinine. Nephrology has been consulted. Patient was started on IV Sandostatin, Midodrine and albumin infusions. Questionable hepatorenal syndrome. 4. Acute gastrointestinal bleed, resolved. RECOMMENDATIONS: 1. Continue current management. 2. We will discuss with radiology regarding MRI of the liver findings. 3. Agree to transfer the patient to the intensive care unit. 4. Obtain ammonia level to see if we are dealing with hepatic encephalopathy. Thank you for this consultation. SABRINA / BRYANN: [id number] /
[2019-07-03] MEDS ORDERED: NOREPINEPHRINE 4 MG in SODIUM CHLORIDE 0.9% 250 ML IV SCH (13:30)
[2019-07-03] MEDS: MIDODRINE 5 MG TAB PO SCH ×2 (13:52→17:51)
[2019-07-03] MEDS: SODIUM BICARBONATE TAB 650 MG TAB PO SCH ×2 (13:52→17:51)
--- NOTE | 2019-07-03 15:30 | P.DS ---
Providers Date of admission: 06/22/19 15:30 Expected date of discharge: 07/03/19 Attending physician: Gregor Noonan MD Consults: 06/22/19 15:31 Consult Physician Routine Consulting Provider: Rich Kaur Consult Reason/Comments: GI bleeding Do you want consulting provider notified?: Yes 06/22/19 15:32 Consult Physician Routine Consulting Provider: Jluis Campos Consult Reason/Comments: Elevated troponin Do you want consulting provider notified?: Yes 06/26/19 04:45 Consult Physician Stat Consulting Provider: Dima Heller Consult Reason/Comments: Hypotension and ICU management Do you want consulting provider notified?: Already Contacted 06/26/19 19:02 Consult Physician Stat Consulting Provider: Richie Shannon Consult Reason/Comments: Elevated liver enzymes Do you want consulting provider notified?: Yes 06/29/19 01:51 Consult Physician Stat Consulting Provider: Vinny Malone Consult Reason/Comments: new onset A-fib Do you want consulting provider notified?: Already Contacted 07/02/19 12:12 Consult Physician Routine Consulting Provider: Chantelle Batista Consult Reason/Comments: Evelated creatine and BUN Do you want consulting provider notified?: Yes Primary care physician: Paty Noonan [facility] Course: [facility] - Racheal Quintero is a 78 yo F with PMH of CAD, RI, asthma, HTN, HLD who prsents to the hospital complaining of 3 week history of melena and hematochezia. She states she has been passing dark tarry stools regularly and over the past few weeks is now noticing bright blood and blood clots in her stool. She denies dizziness, lightheadedness, or abdominal pain. She has been noticing increased dyspnea with exertion. She brought this up with her PCP a few days ago and was set up for an outpatient scope but after passing large bloody BM decided to come to the ED. She denies regular caffeine, alcohol, or NSAID use. States last colonoscopy 4-5 years ago and was normal. In the ED her Hgb was 8.5 with elevated LFTs and trop 0.065. Hospital course - patient was admitted on 06/22 for a GI bleed, she had an EGD and colonoscopy showing esophagitis and diverticulosis but no active bleeding. As the patient developed acute kidney injury and hypotension she was transferred to the ICU on 06/25. She was on pressors and eventually her blood pressure came up and creatinine improved so transferred back to the general medical floors. But during the interim patient's liver function tests have been trending up along with bilirubin level. Hepatitis A,B and C have been negative.CAT scan of the abdomen and pelvis showing patchy densities in the liver along with multiple bilateral pulmonary nodules. She also had a CT of the chest showing a large right lower lobe nodule measuring 2.6 x 1.3 cm along with anasarca and nodular pattern of the liver showing hepatic cirrhosis. AFP was high at 890.Patient also had diagnostic paracentesis done with ascetic fluid consistent with portal hypertension and cytology was negative.patient had an MRI done yesterday that was negative for any mass that was showing cirrhosis of the liver. Over the past 24 hours patient's blood pressure dropped and it was an uptrend of her creatinine with decreased urinary output. So nephrology has been consulted- she has been initiated on Midodrine and also also started on IV albumin.eventually the patient has been transferred to the ICU this morning as her mean arterial pressure was dropping to below 60. Dr. Goodwin from , who has been following the patient thinks that the patienthas decompensated liver failure with unclear etiology and as she is developing hepatorenal syndrome would want her to be transferred to higher facility. So [facility] has been contacted and the sign out was given to Dr. Churchill , ICU fellow. The treatment plan was discussed in detail with the patient's family members at the bedside and all her questions were answered. So the patient is being transferred to [facility] in a critical condition. Vital Signs 07/03/19 11:41 Temperature 97.7 F Pulse Rate [ 56 L Pulse Oximetery ] Respiratory 18 Rate Blood Pressure 92/56 [Right Arm Supine] O2 Sat by Pulse 96 Oximetry Intake & Output Last 24 Hours 07/03/19 07/03/19 07/03/19 06:59 14:59 22:59 Intake Total 1225 Output Total 140 50 Balance 1085 -50 Weight 145.5 kg GENERAL EXAM: mild conversational dyspnea, comfortable in no apparent distress. HEAD: Normocephalic/atraumatic. EYES: Normal reaction of pupils, equal size. Conjunctiva - mild pallor , mild Icterus NECK: No masses, no JVD, no thyroid enlargement, no adenopathy. . LUNGS: Equal air entry bilaterally. Decrease BS in the lower lobes. CVS: S 1 and S 2 heard. ABDOMEN: Large obese, with abdominal wall edema, draining right abdominal paracentesis puncture site with the ostomy appliance in place collecting clear yellow fluid. BS - nomral. Difficult to appreciate organomegaly. EXTREMITIES: Pinkish in colr with chronic edematous changes. No clubbing, 2+ lower extremity edema, MUSCULOSKELETAL: Diffuse weakness CENTRAL NERVOUS SYSTEM: Alert and oriented - 3 . No focal deficits - Lab Results Laboratory Results - Last 24 Hours 07/03/19 07/03/19 07/03/19 05:59 05:59 05:59 WBC 17.8 H RBC 2.50 L Hgb 8.2 L Hct 27.2 L MCV 108.8 H MCH 32.9 MCHC 30.2 L RDW 17.5 H Plt Count 315 Neutrophils % 88 Lymphocytes % 6 Monocytes % 4 Eosinophils % 1 Basophils % 0 Neutrophils # 15.7 H Lymphocytes # 1.1 Monocytes # 0.8 Eosinophils # 0.1 Basophils # 0.0 Manual Slide Review Performed Polychromasia Present Hypochromasia Marked Poikilocytosis Slight Anisocytosis Slight Macrocytosis Marked A Target Cells Present Sodium 137 Potassium 4.5 Chloride 110 H Carbon Dioxide 17 L Anion Gap 10 BUN 49 H Creatinine 2.11 H Est GFR (CKD-EPI)AfAm 26 Est GFR (CKD-EPI)NonAf 22 Glucose 84 POC Glucose (mg/dL) POC Glu Tortilla Maker ID Calcium [email or web address] Total Bilirubin 6.6 H AST 318 H ALT 126 H Alkaline Phosphatase 295 H Ammonia Total Protein 6.2 L Albumin 2.9 L TSH 0.107 L Free T4 2.14 Cortisol 64 07/03/19 07/03/19 10:50 12:11 WBC RBC Hgb Hct MCV MCH MCHC RDW Plt Count Neutrophils % Lymphocytes % Monocytes % Eosinophils % Basophils % Neutrophils # Lymphocytes # Monocytes # Eosinophils # Basophils # Manual Slide Review Polychromasia Hypochromasia Poikilocytosis Anisocytosis Macrocytosis Target Cells Sodium Potassium Chloride Carbon Dioxide Anion Gap BUN Creatinine Est GFR (CKD-EPI)AfAm Est GFR (CKD-EPI)NonAf Glucose POC Glucose (mg/dL) 87 POC Glu Tortilla Maker ID Cammie, Christelle Calcium Total Bilirubin AST ALT Alkaline Phosphatase Ammonia 16 Total Protein Albumin TSH Free T4 Cortisol 1 DISCHARGE DIAGNOSIS Severe hypotension Acute kidney injury - ATN versus hepatorenal syndrome Nonanion gap acidosis Decompensated liver failure Ascites with cirrhosis of the liver Anasarca Elevated alpha-fetoprotein Coronary artery disease with previous history of RI Severe protein calorie malnutrition Morbid obesity with BMI of 57.7 PLAN: Patient is being transferred to [facility] in a critical condition. Patient's family members at bedside and the plan was discussed with him in detail. More than 1 hour spent for the discharge of the patient. Patient Condition at Discharge: Serious Plan - Discharge Summary New Discharge Prescriptions: No Action Aspirin 325 mg PO HS Cetirizine HCl [Zyrtec] 10 mg PO DAILY Levothyroxine Sodium [Synthroid] 224 mcg PO QAM Losartan/Hydrochlorothiazide [Losartan-Hctz 100-25 mg Tab] 1 tab PO DAILY Multivitamins, Thera [Multivitamin] 1 tab PO QAM L.acidoph,Paracasei, B.lactis [Probiotic] 1 cap PO DAILY Cyanocobalamin (Vitamin B-12) [Vitamin B-12] 5,000 mcg PO DAILY Citalopram Hydrobromide [CeleXA] 20 mg PO HS Potassium Gluconate 99 mg PO DAILY Magnesium Oxide 400 mg PO DAILY Atorvastatin [Lipitor] 10 mg PO HS Discharge Medication List Aspirin 325 mg PO HS 12/13/15 [History] Cetirizine HCl [Zyrtec] 10 mg PO DAILY 12/13/15 [History] Levothyroxine Sodium [Synthroid] 224 mcg PO QAM 12/13/15 [History] Losartan/Hydrochlorothiazide [Losartan-Hctz 100-25 mg Tab] 1 tab PO DAILY 12/13/15 [History] Multivitamins, Thera [Multivitamin] 1 tab PO QAM 12/13/15 [History] Atorvastatin [Lipitor] 10 mg PO HS 06/22/19 [History] Citalopram Hydrobromide [CeleXA] 20 mg PO HS 06/22/19 [History] Cyanocobalamin (Vitamin B-12) [Vitamin B-12] 5,000 mcg PO DAILY 06/22/19 [History] L.acidoph,Paracasei, B.lactis [Probiotic] 1 cap PO DAILY 06/22/19 [History] Magnesium Oxide 400 mg PO DAILY 06/22/19 [History] Potassium Gluconate 99 mg PO DAILY 06/22/19 [History] Follow up Appointment(s)/Referral(s): Eric Hayes MD [STAFF PHYSICIAN] - 1 Week Paty Noonan DO [Primary Care Provider] - 06/29/19 2:30 pm (With Dr. Gregor Noonan.) Jose Angel Goodwin MD [STAFF PHYSICIAN] - 07/11/19 2:45 pm [facility] Visiting Nurse, [NON-STAFF] - 1-2 Days Rich Kaur MD [STAFF PHYSICIAN] - 1 Week Patient Instructions/Handouts: Gastrointestinal Bleeding (DC), Diet for Stomach Ulcers and Gastritis (ED) Activity/Diet/Wound Care/Special Instructions: GI BLEED 1. Take all new medication as directed. 2. Avoid foods that can be irritating to your intestines (See dietary teaching). 3. Avoid motrin (ibuprofen) and aleve (naproxen). These medications can increase your risk of internal bleeding. Tylenol (acetaminophen) is safe to take as long as you do not have any liver disease. 4. Avoid drinking alcohol and smoking, these can also irritate your intestines and increase risk of internal bleeding. 5. Increase activity gradually, do not overexert yourself. Your blood count is lower and your body will need time to recover. Discharge Disposition: OTHER INSTITUTION NOT DEFINED
[2019-07-03 16:41] VITALS: TEMP 97.5
[2019-07-03 18:53] VITALS: BP 101/42; PULSE 64; RESP 13
== END 2019-07-03 20:40 | disposition short-term general hospital (02) | DRG 377 ==
LOC: EC 09:12 → 3SCARD 15:30 → 2SICU 06-26 04:40 → 4SSUR 07-01 06:48 → 2SICU 07-03 11:53
PROVIDERS: ADMIT Family Medicine; ATTEND Family Medicine
PROC: 0DB78ZX Excision of Stomach, Pylorus, Via Natural or Artificial Opening Endoscopic, Diagnostic (ICD-10-PCS; principal; 2019-06-23 10:05)
PROC: 0DB58ZX Excision of Esophagus, Via Natural or Artificial Opening Endoscopic, Diagnostic (ICD-10-PCS; principal; 2019-06-23 10:05)
PROC: 0W9G3ZZ Drainage of Peritoneal Cavity, Percutaneous Approach (ICD-10-PCS; 2019-06-29)
DX: K57.31 Diverticulosis of large intestine without perforation or abscess with bleeding (principal); E43 Unspecified severe protein-calorie malnutrition; I50.31 Acute diastolic (congestive) heart failure; K72.00 Acute and subacute hepatic failure without coma; N17.0 Acute kidney failure with tubular necrosis; R57.1 Hypovolemic shock; E87.2 Acidosis; Z68.43 Body mass index [BMI] 50.0-59.9, adult; I24.8 Other forms of acute ischemic heart disease; K76.6 Portal hypertension; N39.0 Urinary tract infection, site not specified; R18.8 Other ascites; K20.9 Esophagitis, unspecified; K71.2 Toxic liver disease with acute hepatitis; D50.0 Iron deficiency anemia secondary to blood loss (chronic); E03.9 Hypothyroidism, unspecified; E11.9 Type 2 diabetes mellitus without complications; E66.01 Morbid (severe) obesity due to excess calories; E78.5 Hyperlipidemia, unspecified; F32.9 Major depressive disorder, single episode, unspecified; F41.9 Anxiety disorder, unspecified; I11.0 Hypertensive heart disease with heart failure; I25.10 Atherosclerotic heart disease of native coronary artery without angina pectoris; I25.2 Old myocardial infarction; I27.29 Other secondary pulmonary hypertension; I27.81 Cor pulmonale (chronic); I34.0 Nonrheumatic mitral (valve) insufficiency; I45.10 Unspecified right bundle-branch block; I48.0 Paroxysmal atrial fibrillation; I50.82 Biventricular heart failure; J45.909 Unspecified asthma, uncomplicated; K22.8 Other specified diseases of esophagus; K29.01 Acute gastritis with bleeding; K74.60 Unspecified cirrhosis of liver; Z79.82 Long term (current) use of aspirin; Z79.890 Hormone replacement therapy; Z79.899 Other long term (current) drug therapy; Z82.49 Family history of ischemic heart disease and other diseases of the circulatory system; Z85.42 Personal history of malignant neoplasm of other parts of uterus; Z87.891 Personal history of nicotine dependence; Z90.49 Acquired absence of other specified parts of digestive tract; Z90.710 Acquired absence of both cervix and uterus; Z95.5 Presence of coronary angioplasty implant and graft; Z96.651 Presence of right artificial knee joint; I95.9 Hypotension, unspecified
CPT/HCPCS: 36415; 43239; 45380; 49083; 71046; 71250; 74176; 80048; 80053; 80074; 80076; 81001; 82042; 82103; 82105; 82140; 82150; 82390; 82533; 82550; 82728; 83516; 83540; 83550; 83690; 83735; 84100; 84157; 84165; 84439; 84443; 84466; 84484; 85025; 85027; 85610; 85730; 86038; 86301; 86376; 86850; 86900; 86901; 87070; 87075; 87086; 87205; 88108; 88305; 89050; 93005; 93306; 96361; 96374; 96375; 99285